=== PATIENT | male | born 1955 | race Caucasian/White ===

== ENCOUNTER 2018-01-15 04:53 | Inpatient (IN) | payer BC, OTHER ==
--- NOTE | 2018-01-15 05:03 | PDOC ---
History of Present Illness - General Chief Complaint: Nausea/Vomiting Stated Complaint: NAUSEA Time Seen by Provider: 01/15/18 04:58 - History of Present Illness Initial Comments: 62yo M with DM and HTN presenting with nausea and vomiting. Patient reports new room-spinning sensation around 11pm after which he started vomiting, and has had about five episodes since that time. Denies abdominal pain, but endorses chills. Patient reports eating chicken and vegetable soup for dinner. No chest pain or shortness of breath. No history of surgeries. History limited by patient s inability to understand questions due to difficulty hearing. Past History - Past Medical History Allergies/Adverse Reactions: Allergies Allergy/AdvReac Type Severity Reaction Status Date / Time No Known Allergies Allergy Verified 09/15/15 17:34 Home Medications: Ambulatory Orders Glyburide [Micronase -] 10 mg PO BID 09/06/15 Sitagliptin Phosphate [Januvia] 50 mg PO BID 09/06/15 Diabetes: Yes HTN: Yes Hypercholesterolemia: Yes - Immunization History Immunization Up to Date: Yes - Suicide/Smoking/Psychosocial Hx Smoking History: Never smoked Have you smoked in the past 12 months: No Hx Alcohol Use: No Drug/Substance Use Hx: No Substance Use Type: None Hx Substance Use Treatment: No Review of Systems - Review of Systems Comments:: Constitutional: no fever, no chills Cardiovascular: no chest pain Respiratory: no cough, no shortness of breath Gastrointestinal: no abdominal pain, +nausea, +vomiting *Physical Exam - Physical Exam Comments: General: Awake, alert, and fully oriented, actively retching Head: no signs of trauma Eyes: EOMI, sclera anicteric ENT: Dry mucus membranes Neck: Normal ROM, supple Lungs: Lungs clear, Normal breath sounds Cardio: Regular rhythm, S1 and S2 present Abdomen: Soft, nontender. No guarding, no rebound, no masses Extremities: Normal range of motion, Distal pulses present SKIN: Warm, Dry, normal turgor Neurologic: Cranial nerves II through XII grossly intact. Horizontal nystagmus present. Normal speech. ED Treatment Course - LABORATORY CBC & Chemistry Diagram: 01/15/18 05:34 01/15/18 05:34 Medical Decision Making - Medical Decision Making 62yo M with nausea and vomiting. Labs Zofran 4 Pepcid 20 1L NS Patient noted to be vertiginous with horizontal nystagmus. Last known normal around 11pm. CT Head ordered 01/15/18 06:21 CT Head did not show acute pathology. Discussed case with neurologist, Dr. Owens, who recommended admission and MRI to assess for stroke given patient's presentation and risk factors. Meclizine [address] Bey Patient signed out to Dr. Heard 01/15/18 07:43 Laboratory Tests 01/15/18 01/15/18 01/15/18 05:34 05:34 05:59 WBC 8.7 RBC 5.91 H Hgb 18.1 H Hct 53.3 H MCV 90.3 MCH 30.7 MCHC 34.0 RDW 12.8 D Plt Count 225 MPV 7.4 L Absolute Neuts (auto) 7.5 Neutrophils % 86.2 H D Lymphocytes % 8.3 D Monocytes % 5.1 Eosinophils % 0.1 D Basophils % 0.3 Nucleated RBC % 0 PT with INR INR Sodium 139 Potassium 4.4 Chloride 101 Carbon Dioxide 20 L Anion Gap 17 H BUN 14 Creatinine 1.3 Creat Clearance w eGFR 55.58 Random Glucose 245 H Calcium 10.0 Total Bilirubin 0.8 AST 20 ALT 31 Alkaline Phosphatase 124 H Creatine Kinase 148 Cancelled Troponin I < 0.02 Cancelled Total Protein 8.1 Albumin 3.9 Triglycerides 67 Cholesterol 163 Cancelled Total LDL Cholesterol 108 H HDL Cholesterol 51 Lipase 272 Acetone, Qual Blood Type Antibody Screen 01/15/18 01/15/18 01/15/18 05:59 05:59 05:59 WBC RBC Hgb Hct MCV MCH MCHC RDW Plt Count MPV Absolute Neuts (auto) Neutrophils % Lymphocytes % Monocytes % Eosinophils % Basophils % Nucleated RBC % PT with INR 11.00 INR 0.97 Sodium Potassium Chloride Carbon Dioxide Anion Gap BUN Creatinine Creat Clearance w eGFR Random Glucose Calcium Total Bilirubin AST ALT Alkaline Phosphatase Creatine Kinase Cancelled Troponin I Cancelled Total Protein Albumin Triglycerides Cancelled Cholesterol Total LDL Cholesterol Cancelled HDL Cholesterol Cancelled Lipase Acetone, Qual Negative Blood Type Antibody Screen 01/15/18 05:59 WBC RBC Hgb Hct MCV MCH MCHC RDW Plt Count MPV Absolute Neuts (auto) Neutrophils % Lymphocytes % Monocytes % Eosinophils % Basophils % Nucleated RBC % PT with INR INR Sodium Potassium Chloride Carbon Dioxide Anion Gap BUN Creatinine Creat Clearance w eGFR Random Glucose Calcium Total Bilirubin AST ALT Alkaline Phosphatase Creatine Kinase Troponin I Total Protein Albumin Triglycerides Cholesterol Total LDL Cholesterol HDL Cholesterol Lipase Acetone, Qual Blood Type B POSITIVE Antibody Screen Negative *DC/Admit/Observation/Transfer Diagnosis at time of Disposition: Vomiting, Vertigo - Discharge Dispostion Condition at time of disposition: Guarded - Referrals - Patient Instructions - Post Discharge Activity
[2018-01-15] MEDS ORDERED: SODIUM CHLORIDE 1,000 ML IV STA (05:30)
[2018-01-15] MEDS ORDERED: FAMOTIDINE 20 MG/50 ML IVPB 20 MG/50 ML MG IVPB ONE ×2 (05:37→06:09)
[2018-01-15] MEDS ORDERED: ONDANSETRON 4 MG/2 ML VIAL ONE (05:43)
[2018-01-15 05:46] LABS: BASO % 0.3 % (0-2.0); EOS % 0.1 % (0-4.5); HEMATOCRIT 53.3 % (35.4-49); HEMOGLOBIN 18.1 GM/dL (11.7-16.9); LYMPH % 8.3 % (8-40); MCH 30.7 pg (25.7-33.7); MEAN CELL VOLUME 90.3 fl (80-96); MEAN PLT VOLUME 7.4 fl (7.5-11.1); MONO % 5.1 % (3.8-10.2); NEUT % 86.2 % (42.8-82.8); PLATELET COUNT 225 K/MM3 (134-434); RBC 5.91 M/mm3 (4.00-5.60); RDW 12.8 % (11.9-15.9); WHITE BLOOD COUNT 8.7 K/mm3 (4.0-10.0)
--- NOTE | 2018-01-15 05:53 | PDOC ---
Attending Attestation - Resident Resident Name: Karla Barth - ED Attending Attestation I have performed the following: I have examined & evaluated the patient, The case was reviewed & discussed with the resident, I agree w/resident's findings & plan, Exceptions are as noted - HPI HPI: 01/15/18 05:48 62 M with h/o DM, HTN presenting to ED with severe dizziness, nausea, and vomiting. Pt states that at 11PM last night, he began to experience a "strange sensation". He states that his apartment started to spin around him. Pt subsequently vomited several times. He denies abdominal pain. Denies diarrhea. Denies HENDRIX. No F/C. Denies CP/SOB. He currently reports feeling very dizzy and nauseous. Denies weakness/numbness in any extremity. - Physicial Exam PE: 01/15/18 05:50 "GENERAL: Awake, alert, and fully oriented, in no acute distress. HEAD: No signs of trauma EYES: PERRLA, EOMI, sclera anicteric, conjunctiva clear ENT: Auricles normal inspection, hearing grossly normal, nares patent, oropharynx clear without exudates. Moist mucosa NECK: Nontender, no stepoffs, Normal ROM, supple, no lymphadenopathy, JVD, or masses LUNGS: Breath sounds equal, clear to auscultation bilaterally. No wheezes, and no crackles HEART: Regular rate and rhythm, normal S1 and S2, no murmurs, rubs or gallops ABDOMEN: Soft, nontender, normoactive bowel sounds. No guarding, no rebound. No masses EXTREMITIES: Normal range of motion, no edema. No clubbing or cyanosis. No cords, erythema, or tenderness NEUROLOGICAL: + horizontal nystagmus, Cranial nerves II through XII intact. 5/5 strength and sensation in all extremities, Normal speech SKIN: Warm, Dry, normal turgor, no rashes or lesions noted." - Medical Decision Making 01/15/18 05:51 62 M with vertigo, nausea, vomiting. Exam notable for horizontal nystagmus, otherwise no neuro deficits. Potentially peripheral vertigo, but will need to r/ o CVA given age and risk factors. Pt outside window for tPA, LKN was 11PM, >6 hours ago. - CT head - Labs - Neuro consult - IVF, zofran NIH Stroke Scale - Last Known Well Date/Time & Onset Date Last Known Well: 01/14/18 Time Last Known Well: 23:00 - Initial Evaluation Level of consciousness: Alert Ask patient the month and their age: Answers both correctly Ask patient to open & close eyes; make fist and let go: Obeys both correctly Best gaze (horizontal eye movement): Normal Visual field testing: No visual field loss Facial paresis (Show teeth/raise eyebrows/close eyes tight): Normal symmetrical movement Motor Function: Left Arm: Normal Motor Function: Right Arm: Normal (extends arm 90 (or 45) degrees for 10 seconds without drift Motor Function: Left Leg: Normal (extends leg 30 degrees for 5 seconds without drift) Motor Function: Right Leg: Normal (extends leg 30 degrees for 5 seconds without drift) Limb Ataxia: Present in two limbs Sensory(Use pinprick test arms,legs,trunk,face/side to side): Normal Best language (Describe picture, name items, read sentences): No Aphasia Dysarthria (read several words): Normal articulation Extinction and Inattention: No abnormality - Total Score NIH Stroke Scale Score: 2
[2018-01-15] MEDS: ONDANSETRON 4 MG/2 ML VIAL IVPUSH ONE ×2 (06:06→06:07)
[2018-01-15 06:19] LABS: INR 0.97 (0.83-1.09)
[2018-01-15] MEDS ORDERED: MECLIZINE HCL 25 MG TABLET (FP) PO ONE (07:18)
[2018-01-15] MEDS ORDERED: MECLIZINE HCL 25 MG TABLET (FP) ONE (07:22)
--- NOTE | 2018-01-15 08:01 | PDOC ---
*Physical Exam - Vital Signs Last Vital Signs Temp Pulse Resp BP Pulse Ox 98.0 F 96 H 14 150/70 96 01/15/18 07:27 01/15/18 07:27 01/15/18 07:27 01/15/18 07:27 01/15/18 07:27 01/15/18 07:56 Care endorsed to me by Dr. Barth at the end of her shift. This is a 62 YOM with h/ o DM, HTN, HLD p/w room-spinning sensation and generalized weakness followed by n/v. Denies any diarrhea or abdominal pain. Was found to be mildly tachycardic, wretching profusely, received Zofran, Pepcid, and IVF. Dr. Barth spoke with Dr. Owens who recommended Meclizine 25 mg, admission for MRI. PCP is Dr. Bey. ED Treatment Course - LABORATORY CBC & Chemistry Diagram: 01/15/18 05:34 01/15/18 05:34 - ADDITIONAL ORDERS Additional order review: Laboratory Results 01/15/18 01/15/18 01/15/18 05:59 05:59 05:59 PT with INR 11.00 INR 0.97 Creatine Kinase Cancelled Cancelled Troponin I Cancelled Cancelled Triglycerides Cancelled Cholesterol Cancelled Total LDL Cholesterol Cancelled HDL Cholesterol Cancelled 01/15/18 05:34 RBC 5.91 H MCV 90.3 MCHC 34.0 RDW 12.8 D MPV 7.4 L Neutrophils % 86.2 H D Lymphocytes % 8.3 D Monocytes % 5.1 Eosinophils % 0.1 D Basophils % 0.3 - Medications Given in the ED: ED Medications Discontinued Medications Generic Name Dose Route Start Last Admin Trade Name Freq PRN Reason Stop Dose Admin Sodium Chloride 1,000 mls @ 1,000 mls/hr 01/15/18 05:30 01/15/18 06:05 Normal Saline - IV 01/15/18 06:29 1,000 mls/hr ASDIR STA Administration Famotidine/Sodium Chloride 20 mg in 50 mls @ 100 mls/hr 01/15/18 05:37 06:27 Pepcid 20 Mg Premixed Ivpb - IVPB 01/15/18 06:06 100 mls/hr ONCE ONE Administration Meclizine HCl 25 mg 01/15/18 07:18 09/27/18 07:26 Antivert - PO 01/15/18 07:19 25 mg ONCE ONE Administration Ondansetron HCl 4 mg 01/15/18 05:30 01/15/18 06:07 Zofran Injection IVPUSH 01/15/18 05:31 4 mg ONCE ONE Administration Medical Decision Making - Medical Decision Making Vital Signs Temperature 98.0 F 01/15/18 07:27 Pulse Rate 96 H 01/15/18 07:27 Respiratory Rate 14 01/15/18 07:27 Blood Pressure 150/70 01/15/18 07:27 O2 Sat by Pulse Oximetry (%) 96 01/15/18 07:27 01/15/18 08:00 Dr. Barth has already called Dr. Bey's office and given information to senior account representative. Dr. Bey has been paged. 01/15/18 08:[address] Bey's office. He is agreeable with plan for admission. [facility]. Decision to Admit order placed. Call placed to Dr. Good's office. 01/15/18 08:[address] Good in person; in agreement with admission plan. Consult order is placed to Dr. Srivastava per Dr. Good group protocol. Dr. Owens is informed of the consult change. Laboratory Tests 01/15/18 01/15/18 01/15/18 05:34 05:34 05:59 WBC 8.7 RBC 5.91 H Hgb 18.1 H Hct 53.3 H MCV 90.3 MCH 30.7 MCHC 34.0 RDW 12.8 D Plt Count 225 MPV 7.4 L Absolute Neuts (auto) 7.5 Neutrophils % 86.2 H D Lymphocytes % 8.3 D Monocytes % 5.1 Eosinophils % 0.1 D Basophils % 0.3 Nucleated RBC % 0 PT with INR INR Sodium 139 Potassium 4.4 Chloride 101 Carbon Dioxide 20 L Anion Gap 17 H BUN 14 Creatinine 1.3 Creat Clearance w eGFR 55.58 Random Glucose 245 H Calcium 10.0 Total Bilirubin 0.8 AST 20 ALT 31 Alkaline Phosphatase 124 H Creatine Kinase 148 Cancelled Troponin I < 0.02 Cancelled Total Protein 8.1 Albumin 3.9 Triglycerides 67 Cholesterol 163 Cancelled Total LDL Cholesterol 108 H HDL Cholesterol 51 Lipase 272 Blood Type Antibody Screen 01/15/18 01/15/18 01/15/18 05:59 05:59 05:59 WBC RBC Hgb Hct MCV MCH MCHC RDW Plt Count MPV Absolute Neuts (auto) Neutrophils % Lymphocytes % Monocytes % Eosinophils % Basophils % Nucleated RBC % PT with INR 11.00 INR 0.97 Sodium Potassium Chloride Carbon Dioxide Anion Gap BUN Creatinine Creat Clearance w eGFR Random Glucose Calcium Total Bilirubin AST ALT Alkaline Phosphatase Creatine Kinase Cancelled Troponin I Cancelled Total Protein Albumin Triglycerides Cancelled Cholesterol Total LDL Cholesterol Cancelled HDL Cholesterol Cancelled Lipase Blood Type B POSITIVE Antibody Screen Negative *DC/Admit/Observation/Transfer Diagnosis at time of Disposition: Vertigo Vomiting Qualifiers: Vomiting type: unspecified Vomiting Intractability: non-intractable Nausea presence: with nausea Qualified Code(s): R11.2 - Nausea with vomiting, unspecified - Discharge Dispostion Condition at time of disposition: Guarded Decision to Admit order: Yes - Referrals - Patient Instructions - Post Discharge Activity
[2018-01-15] MEDS ORDERED: ACETAMINOPHEN 1000 MG/100 ML VIAL (NON FORMULARY) IVPB ONE ×2 (08:27)
[2018-01-15] MEDS ORDERED: ONDANSETRON 4 MG/2 ML VIAL IVPUSH PRN (08:27)
[2018-01-15] MEDS ORDERED: PANTOPRAZOLE SODIUM 40 MG VIAL IVPUSH ONE (08:27)
[2018-01-15] MEDS ORDERED: PANTOPRAZOLE SODIUM 40 MG/100 ML BAG IVPB ONE (08:30)
--- NOTE | 2018-01-15 08:35 | HP ---
Admitting History and Physical - Primary Care Physician PCP: Josh Hammond - Admission Chief Complaint: DIZZINESS/INTRACTABLE VOMITING History Source: Patient Limitations to Obtaining History: Clinical Condition - Past Medical History Cardiovascular: Yes: Hyperlipdemia, Pulmonary Hypertension Psych: Yes: Anxiety - Smoking History Smoking history: Never smoked Have you smoked in the past 12 months: No - Alcohol/Substance Use Hx Alcohol Use: No Home Medications - Allergies Allergies/Adverse Reactions: Allergies Allergy/AdvReac Type Severity Reaction Status Date / Time No Known Allergies Allergy Verified 09/15/15 17:34 - Home Medications Home Medications: Ambulatory Orders Glyburide [Micronase -] 10 mg PO BID 09/06/15 Sitagliptin Phosphate [Januvia] 50 mg PO BID 09/06/15 Review of Systems - Review of Systems Constitutional: reports: Loss of Appetite, Weakness Eyes: reports: No Symptoms HENT: reports: No Symptoms Neck: reports: No Symptoms Cardiovascular: reports: No Symptoms Respiratory: reports: No Symptoms Gastrointestinal: reports: Abdominal Pain, Indigestion, Nausea Genitourinary: reports: No Symptoms Musculoskeletal: reports: No Symptoms, Muscle Pain Neurological: reports: Dizziness, Headache Endocrine: reports: No Symptoms Hematology/Lymphatic: reports: No Symptoms Psychiatric: reports: No Symptoms Physical Examination Vital Signs: Vital Signs Temperature 98.0 F 01/15/18 07:27 Pulse Rate 96 H 01/15/18 07:27 Respiratory Rate 14 01/15/18 07:27 Blood Pressure 150/70 01/15/18 07:27 O2 Sat by Pulse Oximetry (%) 96 01/15/18 07:27 Constitutional: Yes: Moderate Distress Eyes: Yes: WNL HENT: Yes: WNL Neck: Yes: WNL Cardiovascular: Yes: WNL Respiratory: Yes: WNL Gastrointestinal: Yes: Tenderness, Rebound Renal/: Yes: WNL Musculoskeletal: Yes: Muscle Weakness Extremities: Yes: Other Edema: No Peripheral Pulses WNL: Yes Integumentary: Yes: WNL Wound/Incision: Yes: Clean/Dry Neurological: Yes: Alert, Other ...Motor Strength: LLE, RLE Psychiatric: Yes: WNL Labs: CBC, BMP 01/15/18 05:34 Imaging - Results Chest X-ray: Pending X-ray: Pending Cat Scan: Report Reviewed Problem List - Problems (1) Dizziness Code(s): R42 - DIZZINESS AND GIDDINESS (2) Vertigo Code(s): R42 - DIZZINESS AND GIDDINESS (3) Vomiting Code(s): R11.10 - VOMITING, UNSPECIFIED Qualifiers: Vomiting type: unspecified Vomiting Intractability: non-intractable Nausea presence: with nausea Qualified Code(s): R11.2 - Nausea with vomiting, unspecified (4) DM2 (diabetes mellitus, type 2) Code(s): E11.9 - TYPE 2 DIABETES MELLITUS WITHOUT COMPLICATIONS (5) HTN (hypertension) Code(s): I10 - ESSENTIAL (PRIMARY) HYPERTENSION Assessment/Plan IVF ZOFRAN IV CHECK XRAY ABDOMEN/CXR R/O SBO ANTIVERT NEURO EVAL PPI/TYLENOL IV FALL RISKS NEURO CHECKS
[2018-01-15 08:39] LABS: ALBUMIN 3.9 g/dl (3.4-5.0); ALK PHOS 124 U/L (45-117); ANION GAP 17 MMOL/L (8-16); BILIRUBIN,TOTAL 0.8 mg/dL (0.2-1); BLOOD UREA NITROGEN 14 mg/dL (7-18); CHLORIDE 101 mmol/L (98-107); CHOLESTEROL 163 mg/dL (50-200); CO2 20 mmol/L (21-32); CREATININE 1.3 mg/dL (0.55-1.3); GLUCOSE,RANDOM 245 mg/dL (74-106); HDL CHOLESTEROL 51 mg/dL (40-60); LIPASE 272 U/L (73-393); POTASSIUM 4.4 mmol/L (3.5-5.1); SGOT/AST 20 U/L (15-37); SGPT/ALT 31 U/L (13-61); SODIUM 139 mmol/L (136-145); TOT PROT 8.1 g/dl (6.4-8.2); TRIGLYCERIDES 67 mg/dL (0-150)
[2018-01-15] MEDS: DEXTROSE 5%-NORMAL SALINE 1,000 ML IV SCH (09:05)
--- NOTE | 2018-01-15 09:34 | EKG ---
Test Reason : Blood Pressure : / mmHG Vent. Rate : 105 BPM Atrial Rate : 105 BPM P-R Int : 172 ms QRS Dur : 104 ms QT Int : 360 ms P-R-T Axes : 064 -50 097 degrees QTc Int : 475 ms SINUS TACHYCARDIA LEFT ANTERIOR FASCICULAR BLOCK MODERATE VOLTAGE CRITERIA FOR LVH, MAY BE NORMAL VARIANT T WAVE ABNORMALITY, CONSIDER LATERAL ISCHEMIA ABNORMAL ECG WHEN COMPARED WITH ECG OF 15-SEP-2015 19:19, INCOMPLETE RIGHT BUNDLE BRANCH BLOCK IS NO LONGER PRESENT Confirmed by MARGARITA TOPETE MD ([id number]) on 01/15/2018 9:33:54 AM Referred By: Confirmed By:MARGARITA TOPETE MD
[2018-01-15 10:11] LABS: URINE APPEARANCE CLEAR; URINE BILIRUBIN NEGATIVE (<2.0 mg/dL); URINE COLOR STRAW; URINE GLUCOSE (UA) 3+ (NEGATIVE); URINE KETONE 1+ (NEGATIVE); URINE LEUK ESTERASE NEGATIVE (NEGATIVE); URINE NITRITE NEGATIVE (NEGATIVE); URINE PROTEIN NEGATIVE (NEGATIVE); URINE UROBILINOGEN NEGATIVE mg/dL (0.2-1.0)
[2018-01-15 10:14] LABS: EPI CELLS RARE /HPF (FEW); URINE MUCUS RARE
--- NOTE | 2018-01-15 15:37 | PN ---
Progress Note (short form) - Note Progress Note: Informed Dr. Good that I will be away starting tomorrow and therefore cannot accept new consults. He asked for Dr. Wilkins to consult on Darnell. Order placed.
[2018-01-15 17:13] VITALS: BMI 26.4
[2018-01-16] MEDS: DEXTROSE 5%-NORMAL SALINE 1,000 ML IV SCH (10:14)
--- NOTE | 2018-01-16 10:43 | PN ---
Progress Note, Physician - Current Medication List Current Medications: Active Medications Dextrose/Sodium Chloride (D5-Ns -) 1,000 mls @ 83 mls/hr IV ASDIR SAMEER Last Admin: 01/16/18 10:14 Dose: 83 mls/hr Ondansetron HCl (Zofran Injection) 4 mg IVPUSH Q4H PRN PRN Reason: NAUSEA AND/OR VOMITING - Objective Vital Signs: Vital Signs Temperature 98.3 F 01/16/18 10:06 Pulse Rate 83 01/16/18 10:06 Respiratory Rate 16 01/16/18 10:06 Blood Pressure 166/101 H 01/16/18 10:06 O2 Sat by Pulse Oximetry (%) 96 01/16/18 09:00 Cardiovascular: Yes: S1, S2 Respiratory: Yes: Regular, CTA Bilaterally Gastrointestinal: Yes: Normal Bowel Sounds, Soft Neurological: Yes: Alert, Oriented. No: Cran Nerves II-XII Intact Labs: CBC, BMP 01/15/18 05:34 01/15/18 05:34 INR, PTT INR 0.97 (0.83-1.09) 01/15/18 05:59 Problem List - Problems (1) Vertigo Assessment/Plan: -CT head negative -Neuro consult -Tele -Cardio -Follow Up Labs Code(s): R42 - DIZZINESS AND GIDDINESS (2) Vomiting Assessment/Plan: -PPI -GI consult -Advance diet Code(s): R11.10 - VOMITING, UNSPECIFIED Qualifiers: Vomiting type: unspecified Vomiting Intractability: non-intractable Nausea presence: with nausea Qualified Code(s): R11.2 - Nausea with vomiting, unspecified (3) DM2 (diabetes mellitus, type 2) Assessment/Plan: -BGM and SS Code(s): E11.9 - TYPE 2 DIABETES MELLITUS WITHOUT COMPLICATIONS (4) HTN (hypertension) Code(s): I10 - ESSENTIAL (PRIMARY) HYPERTENSION
[2018-01-16] MEDS: amLODIPine BESYLATE 5 MG TABLET (FP) PO SCH (11:09)
--- NOTE | 2018-01-16 14:01 | CON.CARD ---
Consult Consult Specialty:: Cardiology Referred by:: tameka Good Reason for Consultation:: htn - History of Present Illness Chief Complaint: Dizziness History of Present Illness: 62 year old male with a pmhx of dm and htn who presented to ER with dizziness, nausea, and vomiting. Started in the evening and than felt a "strange sensation ". Room was spinning and than developed N/V. No chest pain or sob. No palpitations. No pnd, orthopnea, or edema. Feeling some dizziness and "feeling off" but says it is improving. As per nurse, patient is refusing his blood pressure pills and also MRI brain. EKG: sinus rhythm, lafb, lateral T wave abnormalities - History Source History Provided By: Patient, Medical Record - Past Medical History Cardio/Vascular: Yes: Hyperlipdemia, Pulmonary Hypertension Psych: Yes: Anxiety - Alcohol/Substance Use Hx Alcohol Use: No - Smoking History Smoking history: Never smoked Have you smoked in the past 12 months: No Home Medications - Allergies Allergies/Adverse Reactions: Allergies Allergy/AdvReac Type Severity Reaction Status Date / Time No Known Allergies Allergy Verified 09/15/15 17:34 - Home Medications Home Medications: Ambulatory Orders Glyburide [Micronase -] 10 mg PO BID 09/06/15 Sitagliptin Phosphate [Januvia] 50 mg PO BID 09/06/15 Vital Signs: Vital Signs Temperature 98.3 F 01/16/18 10:06 Pulse Rate 83 01/16/18 10:06 Respiratory Rate 16 01/16/18 10:06 Blood Pressure 166/101 H 01/16/18 10:06 O2 Sat by Pulse Oximetry (%) 96 01/16/18 09:00 Constitutional: Yes: No Distress Neck: Yes: Supple Respiratory: Yes: CTA Bilaterally Gastrointestinal: Yes: Soft Cardiovascular: Yes: Regular Rate and Rhythm JVD: No Carotid Bruit: No PMI: Non-Displaced Heart Sounds: Yes: S1, S2 Murmur: Yes: Systolic Murmur (+2/6 HSM RUSB) Edema: No - Other Data Labs, Other Data: CBC, BMP 01/15/18 05:34 01/15/18 05:34 INR, PTT INR 0.97 (0.83-1.09) 01/15/18 05:59 Imaging - Results Chest X-ray: Report Reviewed EKG: Image Reviewed Problem List - Problems (1) Dizziness Code(s): R42 - DIZZINESS AND GIDDINESS (2) HTN (hypertension) Code(s): I10 - ESSENTIAL (PRIMARY) HYPERTENSION Assessment/Plan 62 year old male with a pmhx of dm and htn who presented to ER with dizziness, nausea, and vomiting. Started in the evening and than felt a "strange sensation ". Room was spinning and than developed N/V. No chest pain or sob. No palpitations. No pnd, orthopnea, or edema. Feeling some dizziness and "feeling off" but says it is improving. As per nurse, patient is refusing his blood pressure pills and also MRI brain. EKG: sinus rhythm, lafb, lateral T wave abnormalities CT head: no acute m/s/b CXR: no acute lung disease 1) HTN -ordered amlodipine but patient is refusing. Recommended to patient to take medication. Can also consider moreno or arb given h /o DM unless contraindicated. 2) Dizziness -CT head negative Telemetry uneventful to date. -Refusing MRI as per nurse. -Would also consider an echocardiogram given lvh/dizzy/and light systolic murmur if patient agrees.
[2018-01-16] MEDS ORDERED: PANTOPRAZOLE SODIUM 40 MG VIAL IVPUSH SCH (15:00)
--- NOTE | 2018-01-16 15:50 | CON.GI ---
Consult Consult Specialty:: Gastroenterology Referred by:: Dr Good Reason for Consultation:: Vomiting - History of Present Illness Chief Complaint: Dizziness and vomiting - History Source History Provided By: Patient Limitations to Obtaining History: Poor Historian - Past Medical History [employer]: Yes: Other (decreased auditory acuity) Cardio/Vascular: Yes: HTN, Hyperlipdemia Renal/: Yes: Renal Inusuff (obstructive uropathy and poorly controlled DM), BPH Psych: Yes: Anxiety Endocrine: Yes: Diabetes Mellitus - Past Surgical History Past Surgical History: Yes: TURP - Alcohol/Substance Use Hx Alcohol Use: No History of Substance Use: reports: None - Smoking History Smoking history: Never smoked Have you smoked in the past 12 months: No - Social History Usual Living Arrangement: Alone ADL: Family Assistance Occupation: teacher's aid, [employer] Place of : Other ([place]) Came to [place] (year): age 16 History of Recent Travel: No Home Medications - Allergies Allergies/Adverse Reactions: Allergies Allergy/AdvReac Type Severity Reaction Status Date / Time No Known Allergies Allergy Verified 09/15/15 17:34 - Home Medications Home Medications: Ambulatory Orders Glyburide [Micronase -] 10 mg PO BID 09/06/15 Sitagliptin Phosphate [Januvia] 50 mg PO BID 09/06/15 Family Disease History - Family Disease History Family Disease History: Other: Father ( of alcoholism), Mother ( age 37 ? cause) Review of Systems - Review of Systems Constitutional: reports: Loss of Appetite HENT: reports: Hearing Loss Cardiovascular: reports: No Symptoms Respiratory: reports: No Symptoms Gastrointestinal: reports: Vomiting Genitourinary: reports: Frequency Psychiatric: reports: Anxiety Physical Exam-GI Vital Signs: Vital Signs Temperature 98.3 F 01/16/18 10:06 Pulse Rate 83 01/16/18 10:06 Respiratory Rate 16 01/16/18 10:06 Blood Pressure 166/101 H 01/16/18 10:06 O2 Sat by Pulse Oximetry (%) 96 01/16/18 09:00 CBC,CMP WBC 8.7 K/mm3 (4.0-10.0) 01/15/18 05:34 RBC 5.91 M/mm3 (4.00-5.60) H 01/15/18 05:34 Hgb 18.1 GM/dL (11.7-16.9) H 01/15/18 05:34 Hct 53.3 % (35.4-49) H 01/15/18 05:34 MCV 90.3 fl (80-96) 01/15/18 05:34 MCH 30.7 pg (25.7-33.7) 01/15/18 05:34 MCHC 34.0 g/dl (32.0-35.9) 01/15/18 05:34 RDW 12.8 % (11.9-15.9) D 01/15/18 05:34 Plt Count 225 K/MM3 (134-434) 01/15/18 05:34 MPV 7.4 fl (7.5-11.1) L 01/15/18 05:34 Absolute Neuts (auto) 7.5 K/mm3 (1.5-8.0) 01/15/18 05:34 Neutrophils % 86.2 % (42.8-82.8) H D 01/15/18 05:34 Lymphocytes % 8.3 % (8-40) D 01/15/18 05:34 Monocytes % 5.1 % (3.8-10.2) 01/15/18 05:34 Eosinophils % 0.1 % (0-4.5) D 01/15/18 05:34 Basophils % 0.3 % (0-2.0) 01/15/18 05:34 Nucleated RBC % 0 % (0-0) 01/15/18 05:34 Sodium 139 mmol/L (136-145) 01/15/18 05:34 Potassium 4.4 mmol/L (3.5-5.1) 01/15/18 05:34 Chloride 101 mmol/L (98-107) 01/15/18 05:34 Carbon Dioxide 20 mmol/L (21-32) L 01/15/18 05:34 Anion Gap 17 MMOL/L (8-16) H 01/15/18 05:34 BUN 14 mg/dL (7-18) 01/15/18 05:34 Creatinine 1.3 mg/dL (0.55-1.3) 01/15/18 05:34 Creat Clearance w eGFR 55.58 (>60) 01/15/18 05:34 POC Glucometer 223 UNITS (80-120) 01/16/18 10:37 Random Glucose 245 mg/dL (74-106) H 01/15/18 05:34 Calcium 10.0 mg/dL (8.5-10.1) 01/15/18 05:34 Total Bilirubin 0.8 mg/dL (0.2-1) 01/15/18 05:34 AST 20 U/L (15-37) 01/15/18 05:34 ALT 31 U/L (13-61) 01/15/18 05:34 Alkaline Phosphatase 124 U/L (45-117) H 01/15/18 05:34 Creatine Kinase Cancelled 01/15/18 05:59 Troponin I Cancelled 01/15/18 05:59 Total Protein 8.1 g/dl (6.4-8.2) 01/15/18 05:34 Albumin 3.9 g/dl (3.4-5.0) 01/15/18 05:34 Triglycerides Cancelled 01/15/18 05:59 Cholesterol Cancelled 01/15/18 05:59 Total LDL Cholesterol Cancelled 01/15/18 05:59 HDL Cholesterol Cancelled 01/15/18 05:59 Lipase 272 U/L (73-393) 01/15/18 05:34 Current Medications Generic Name Dose Route Start Last Admin Trade Name Freq PRN Reason Stop Dose Admin Amlodipine Besylate 5 mg 01/16/18 10:45 01/16/18 11:09 Norvasc - PO Not Given DAILY SAMEER Dextrose/Sodium Chloride 1,000 mls @ 83 mls/hr 01/15/18 08:45 01/16/18 10:14 D5-Ns - IV 83 mls/hr ASDIR [facility] Administration Insulin Aspart 1 vial 01/16/18 16:30 Novolog Vial Sliding Scale - SQ ACHS [facility] Protocol Ondansetron HCl 4 mg 01/15/18 08:27 Zofran Injection IVPUSH Q4H PRN NAUSEA AND/OR VOMITING Pantoprazole Sodium 40 mg 01/16/18 15:00 Protonix Iv IVPUSH DAILY SAMEER Constitutional: Yes: Anxious Eyes: Yes: Conjunctiva Clear HENT: Yes: Other (hard of hearing) Neck: Yes: Supple Cardiovascular: Yes: Regular Rate and Rhythm Respiratory: Yes: CTA Bilaterally Gastrointestinal Inspection: Yes: WNL ...Auscultate: Yes: Normoactive Bowel Sounds ...Palpate: Yes: Soft, Other (nontender) ...Rectal Exam: Yes: Deferred (declined) Edema: No Neurological: Yes: Alert, Unsteady Gait Labs: CBC, BMP 01/15/18 05:34 01/15/18 05:34 INR, PTT INR 0.97 (0.83-1.09) 01/15/18 05:59 Laboratory Tests 01/15/18 05:34 Alkaline Phosphatase 124 H Problem List - Problems (1) Vomiting Assessment/Plan: Jose apparently has poor compliance with taking medications as per Dr Bey' s previous consultation. She admits to seeing BGMs over 300 and having urinary frequency over the past few weeks. He denies abdominal pain acid reflux, rectal bleeding, dysphagia or hematemesis but had noted early satiety for several weeks. The picture is most consistent with diabetic gastroparesis. I will order a Hb A1C. I have advised an EGD to exclude erosive gastritis and an ulcer. I have also advised colonoscopy for colon cancer screening. Jose has declined both. I am not convinced that he fully understands that which I have discussed with him. Since vomiting has resolved I will not start Reglan. Dr Lees will be covering this weekend . Please recall us if needed Code(s): R11.10 - VOMITING, UNSPECIFIED Qualifiers: Vomiting type: unspecified Vomiting Intractability: non-intractable Nausea presence: with nausea Qualified Code(s): R11.2 - Nausea with vomiting, unspecified (2) Diabetic gastroparesis associated with type 2 diabetes mellitus Code(s): E11.43 - TYPE 2 DIABETES W DIABETIC AUTONOMIC (POLY)NEUROPATHY; K31.84 - GASTROPARESIS (3) Auditory disturbance Code(s): H91.90 - UNSPECIFIED HEARING LOSS, UNSPECIFIED EAR
[2018-01-16] MEDS: INSULIN SLIDING SCALE (NOVOLOG) 1 VIAL SQ SCH ×2 (16:24→21:02)
--- NOTE | 2018-01-16 16:31 | ECHO ---
Version: 1 Name: JULIAN WHEELER Exam: Adult Echocardiogram Study Date: 01/16/2018, 3:10 PM Age: 62 Years MMode/2D Measurements & Calculations IVSd: 0.99 cm LVIDs: 2.7 cm LVIDd: 4.3 cm LVPWd: 0.84 cm Ao root diam: 2.7 cm LA dimension: 3.3 cm Doppler Measurements & Calculations MV E max minh: 92.3 cm/sec Med E/e': 14.8 MV A max minh: 84.4 cm/sec Med Peak E' Minh: 6.2 cm/sec MV E/A: 1.09 Lat E/e': 6.2 Lat Peak E' Minh: 14.9 cm/sec MR max P.2 mmHg Ao max P.0 mmHg Ao V2 max: 180.5 cm/sec TR max minh: 261.7 cm/sec TR max P.4 mmHg Procedure A two-dimensional transthoracic echocardiogram with color flow and Doppler was performed. Left Ventricle The left ventricular size, thickness and function are normal. The left ventricular ejection fraction is normal. E/A reversal consistent with but not diagnostic of poor LV compliance. The left ventricular wall motion is normal. Right Ventricle The right ventricle is normal in size and function. Atria Normal left and right atrial size and function. Mitral Valve There is mild mitral valve thickening. There is no mitral valve stenosis. There is mild mitral regur gitation. Tricuspid Valve There is mild tricuspid valve thickening. There is no tricuspid stenosis. There is mild to moderate tricuspid regurgitation. Right ventricular systolic pressure is elevated at 30-40mmHg. Aortic Valve The aortic valve is not well visualized. No hemodynamically significant valvular aortic stenosis. No aortic regurgitation is present. Pulmonic Valve The pulmonic valve is not well visualized. There is no pulmonic valvular stenosis. Trace to mild pul nathan valvular regurgitation. Great Vessels The aortic root is normal size. Pericardium/Pleura There is no pericardial effusion. Summary Statements The left ventricular size, thickness and function are normal The left ventricular ejection fraction is normal. The left ventricular wall motion is normal. There is mild to moderate tricuspid regurgitation. Right ventricular systolic pressure is elevated at 30-40mmHg. E/A reversal consistent with but not diagnostic of poor LV compliance There is mild mitral regurgitation. MD Levi Goodson 01/16/2018, 4:30 PM Ordering Physician: Dave Cortez Referring Physician: KETURAH WALDROP Performed By: Tina Fox
[2018-01-16 16:39] LABS: BASO % 0.2 % (0-2.0); EOS % 0.4 % (0-4.5); HEMATOCRIT 50.8 % (35.4-49); HEMOGLOBIN 17.1 GM/dL (11.7-16.9); LYMPH % 19.7 % (8-40); MCH 30.4 pg (25.7-33.7); MCHC 33.7 g/dl (32.0-35.9); MEAN CELL VOLUME 90.1 fl (80-96); MEAN PLT VOLUME 7.4 fl (7.5-11.1); MONO % 9.6 % (3.8-10.2); NEUT % 70.1 % (42.8-82.8); PLATELET COUNT 203 K/MM3 (134-434); RBC 5.63 M/mm3 (4.00-5.60); RDW 12.7 % (11.9-15.9); WHITE BLOOD COUNT 6.6 K/mm3 (4.0-10.0)
[2018-01-16 17:07] LABS: ALBUMIN 3.6 g/dl (3.4-5.0); ALK PHOS 108 U/L (45-117); ANION GAP 11 MMOL/L (8-16); BILIRUBIN,TOTAL 0.6 mg/dL (0.2-1); BLOOD UREA NITROGEN 10 mg/dL (7-18); CALCIUM 8.9 mg/dL (8.5-10.1); CHLORIDE 102 mmol/L (98-107); CO2 26 mmol/L (21-32); CREATININE 1.2 mg/dL (0.55-1.3); GLUCOSE,RANDOM 256 mg/dL (74-106); POTASSIUM 3.9 mmol/L (3.5-5.1); SGOT/AST 29 U/L (15-37); SGPT/ALT 27 U/L (13-61); SODIUM 139 mmol/L (136-145)
[2018-01-16] MEDS ORDERED: INSULIN (NOVOLOG) ASPART 100 UNITS/ML 10ML VIAL ONE ×2 (18:02→20:49)
--- NOTE | 2018-01-16 19:23 | CONSULT ---
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 Admitted after the sudden-onset of spinning vertigo, nausea, vomiting. Pt now markedly improved. Denies prior episodes CT of head (reviewed): Normal EMMA: No bruits. Cor reg NEURO: Mild static encephalopathy? Speech fluent. CN: Hard of hearing? No nystagmus No drift or tremor. Normal strength. Some cogwheel rigidity and decreased KAT's. Normal strength. Absent AJJ's. No FTN Dystaxia Slight decreased vib in feet. Romberg neg Slightly wide-based. IMP: Mild B/L Cerebral dysfunction (static encephalopathy) Acute labyrinthitis. Mild extrapyramidal features. Mild diabetic peripheral neuropathy. SUGGEST: Cont. Meclizine PRN Out patient ENT consult and audiology PT to mobilize patient OO Bed to chair and for gait assessment. Check TSH, T4, RPR, B12. Thank you very much, Jose Srivastava MD
[2018-01-17] MEDS: INSULIN SLIDING SCALE (NOVOLOG) 1 VIAL SQ SCH ×4 (06:11→22:28)
[2018-01-17 07:06] LABS: BASO % 0.4 % (0-2.0); EOS % 1.4 % (0-4.5); HEMATOCRIT 49.6 % (35.4-49); HEMOGLOBIN 16.5 GM/dL (11.7-16.9); LYMPH % 26.6 % (8-40); MCH 29.9 pg (25.7-33.7); MCHC 33.3 g/dl (32.0-35.9); MEAN CELL VOLUME 89.9 fl (80-96); MEAN PLT VOLUME 7.4 fl (7.5-11.1); MONO % 12.2 % (3.8-10.2); NEUT % 59.4 % (42.8-82.8); PLATELET COUNT 185 K/MM3 (134-434); RBC 5.51 M/mm3 (4.00-5.60); RDW 12.9 % (11.9-15.9); WHITE BLOOD COUNT 5.7 K/mm3 (4.0-10.0)
[2018-01-17 07:58] LABS: ALBUMIN 3.6 g/dl (3.4-5.0); ALK PHOS 103 U/L (45-117); ANION GAP 11 MMOL/L (8-16); BILIRUBIN,TOTAL 0.8 mg/dL (0.2-1); BLOOD UREA NITROGEN 8 mg/dL (7-18); CALCIUM 8.6 mg/dL (8.5-10.1); CHLORIDE 101 mmol/L (98-107); CO2 27 mmol/L (21-32); CREATININE 1.1 mg/dL (0.55-1.3); GLUCOSE,RANDOM 213 mg/dL (74-106); POTASSIUM 3.7 mmol/L (3.5-5.1); SGOT/AST 30 U/L (15-37); SGPT/ALT 28 U/L (13-61); SODIUM 139 mmol/L (136-145); TOT PROT 6.8 g/dl (6.4-8.2)
--- NOTE | 2018-01-17 10:14 | PN ---
Progress Note, Physician - Current Medication List Current Medications: Active Medications Amlodipine Besylate (Norvasc -) 5 mg PO DAILY [facility] Last Admin: 01/16/18 11:09 Dose: Not Given Insulin Aspart (Novolog Vial Sliding Scale -) 1 vial SQ ACHS [facility]; Protocol Last Admin: 01/17/18 06:11 Dose: Not Given Ondansetron HCl (Zofran Injection) 4 mg IVPUSH Q4H PRN PRN Reason: NAUSEA AND/OR VOMITING Ramipril (Altace -) 5 mg PO DAILY [facility] Sitagliptin Phosphate (Januvia -) 50 mg PO BID [facility] - Objective Vital Signs: Vital Signs Temperature 98 F 01/17/18 05:00 Pulse Rate 70 01/17/18 05:00 Respiratory Rate 18 01/17/18 05:00 Blood Pressure 151/92 01/17/18 05:00 O2 Sat by Pulse Oximetry (%) 95 01/16/18 21:00 Cardiovascular: Yes: Regular Rate and Rhythm Respiratory: Yes: Regular, CTA Bilaterally Gastrointestinal: Yes: Normal Bowel Sounds, Soft Labs: CBC, BMP 01/17/18 05:30 01/17/18 05:30 INR, PTT INR 0.97 (0.83-1.09) 01/15/18 05:59 Problem List - Problems (1) Vertigo Assessment/Plan: -CT head negative -Neuro consult noted -Tele -Cardio noted -Follow Up Labs Code(s): R42 - DIZZINESS AND GIDDINESS (2) Vomiting Assessment/Plan: -PPI--to po -GI consult noted -Advance diet Code(s): R11.10 - VOMITING, UNSPECIFIED Qualifiers: Vomiting type: unspecified Vomiting Intractability: non-intractable Nausea presence: with nausea Qualified Code(s): R11.2 - Nausea with vomiting, unspecified (3) DM2 (diabetes mellitus, type 2) Assessment/Plan: -BGM and SS -compliance with meds discussed Code(s): E11.9 - TYPE 2 DIABETES MELLITUS WITHOUT COMPLICATIONS (4) HTN (hypertension) Code(s): I10 - ESSENTIAL (PRIMARY) HYPERTENSION
[2018-01-17] MEDS: RAMIPRIL 5 MG CAPSULE (FP) PO SCH ×2 (11:00→17:14)
[2018-01-17] MEDS: amLODIPine BESYLATE 5 MG TABLET (FP) PO SCH ×2 (11:00→17:15)
[2018-01-17] MEDS: PANTOPRAZOLE 40 MG TABLET (FP) PO SCH ×2 (11:00→17:14)
--- NOTE | 2018-01-17 11:16 | PN ---
Progress Note, Physician Chief Complaint: Dizziness History of Present Illness: 62 year old male with a pmhx of dm and htn who presented to ER with dizziness, nausea, and vomiting. Started in the evening and than felt a "strange sensation ". Room was spinning and than developed N/V. No chest pain or sob. No palpitations. No pnd, orthopnea, or edema. Feeling some dizziness and "feeling off" but says it is improving. As per nurse, patient is refusing his blood pressure pills and also MRI brain. - Current Medication List Current Medications: Active Medications Amlodipine Besylate (Norvasc -) 5 mg PO DAILY [facility] Last Admin: 01/16/18 11:09 Dose: Not Given Insulin Aspart (Novolog Vial Sliding Scale -) 1 vial SQ ACHS [facility]; Protocol Last Admin: 01/17/18 06:11 Dose: Not Given Ondansetron HCl (Zofran Injection) 4 mg IVPUSH Q4H PRN PRN Reason: NAUSEA AND/OR VOMITING Pantoprazole Sodium (Protonix -) 40 mg PO DAILY SAMEER Ramipril (Altace -) 5 mg PO DAILY [facility] Sitagliptin Phosphate (Januvia -) 50 mg PO BID [facility] - Objective Vital Signs: Vital Signs Temperature 98 F 01/17/18 05:00 Pulse Rate 70 01/17/18 05:00 Respiratory Rate 18 01/17/18 05:00 Blood Pressure 151/92 01/17/18 05:00 O2 Sat by Pulse Oximetry (%) 95 01/16/18 21:00 Constitutional: Yes: Well Nourished, No Distress, Calm Eyes: Yes: WNL, Conjunctiva Clear, EOM Intact HENT: Yes: WNL, Atraumatic, Normocephalic Neck: Yes: WNL, Supple, Trachea Midline Cardiovascular: Yes: WNL, Regular Rate and Rhythm, S1, S2 Respiratory: Yes: WNL, Regular, CTA Bilaterally Gastrointestinal: Yes: WNL, Normal Bowel Sounds, Soft ...Rectal Exam: Yes: Deferred Genitourinary: Yes: WNL Musculoskeletal: Yes: WNL Extremities: Yes: WNL Edema: No Peripheral Pulses WNL: Yes Integumentary: Yes: WNL Neurological: Yes: WNL, Alert, Oriented ...Motor Strength: WNL Psychiatric: Yes: WNL Labs: CBC, BMP 01/17/18 05:30 09/29/18 05:30 INR, PTT INR 0.97 (0.83-1.09) 01/15/18 05:59 Assessment/Plan 62 year old male with a pmhx of dm and htn who presented to ER with dizziness, nausea, and vomiting. Started in the evening and than felt a "strange sensation ". Room was spinning and than developed N/V. No chest pain or sob. No palpitations. No pnd, orthopnea, or edema. Feeling some dizziness and "feeling off" but says it is improving. As per nurse, patient is refusing his blood pressure pills and also MRI brain. There is no evidence of ischemia nor acute coronary syndrome. No angina. No events on telemetry. The echocardiogram showed the left ventricular function is normal. Elevated right ventricular pressures. The blood pressure remains moderately elevated. Consider increasing the Norvasc from 5-10 mg daily. There is no need for further cardiac workup at this point. Please do not hesitate to call us PRN. Please arrange for an outpatient office visit with .
[2018-01-17] MEDS: sitaGLIPtin PHOSPHATE 50 MG TABLET PO SCH (22:30)
[2018-01-18] MEDS: INSULIN SLIDING SCALE (NOVOLOG) 1 VIAL SQ SCH ×4 (06:29→22:03)
[2018-01-18] MEDS: amLODIPine BESYLATE 5 MG TABLET (FP) PO SCH (10:29)
[2018-01-18] MEDS: PANTOPRAZOLE 40 MG TABLET (FP) PO SCH (10:29)
[2018-01-18] MEDS: RAMIPRIL 5 MG CAPSULE (FP) PO SCH (10:29)
[2018-01-18] MEDS: sitaGLIPtin PHOSPHATE 50 MG TABLET PO SCH ×2 (10:29→22:03)
--- NOTE | 2018-01-18 11:18 | PN ---
Progress Note, Physician - Current Medication List Current Medications: Active Medications Amlodipine Besylate (Norvasc -) 5 mg PO DAILY [facility] Last Admin: 01/18/18 10:29 Dose: 5 mg Insulin Aspart (Novolog Vial Sliding Scale -) [address] [facility]; Protocol Last Admin: 01/18/18 06:29 Dose: Not Given Ondansetron HCl (Zofran Injection) 4 mg IVPUSH Q4H PRN PRN Reason: NAUSEA AND/OR VOMITING Pantoprazole Sodium (Protonix -) 40 mg PO DAILY [facility] Last Admin: 01/18/18 10:29 Dose: 40 mg Ramipril (Altace -) 5 mg PO DAILY [facility] Last Admin: 01/18/18 10:29 Dose: 5 mg Sitagliptin Phosphate (Januvia -) 50 mg PO BID [facility] Last Admin: 01/18/18 10:29 Dose: 50 mg Tamsulosin HCl (Flomax -) 0.4 mg PO DAILY@0830 [facility] - Objective Vital Signs: Vital Signs Temperature 98.1 F 01/18/18 06:00 Pulse Rate 63 01/18/18 06:00 Respiratory Rate 18 01/18/18 06:00 Blood Pressure 135/62 01/18/18 06:00 O2 Sat by Pulse Oximetry (%) 97 01/17/18 21:00 Cardiovascular: Yes: S1, S2 Respiratory: Yes: Regular, CTA Bilaterally Gastrointestinal: Yes: Normal Bowel Sounds, Soft Labs: CBC, BMP 01/17/18 05:30 01/17/18 05:30 INR, PTT INR 0.97 (0.83-1.09) 01/15/18 05:59 Problem List - Problems (1) Vertigo Assessment/Plan: -CT head negative -Neuro consult noted -Tele -Cardio noted -Follow Up Labs Code(s): R42 - DIZZINESS AND GIDDINESS (2) Vomiting Code(s): R11.10 - VOMITING, UNSPECIFIED Qualifiers: Vomiting type: unspecified Vomiting Intractability: non-intractable Nausea presence: with nausea Qualified Code(s): R11.2 - Nausea with vomiting, unspecified (3) DM2 (diabetes mellitus, type 2) Assessment/Plan: -BGM and SS -compliance with meds discussed Code(s): E11.9 - TYPE 2 DIABETES MELLITUS WITHOUT COMPLICATIONS (4) HTN (hypertension) Assessment/Plan: better same meds Code(s): I10 - ESSENTIAL (PRIMARY) HYPERTENSION (5) Hydronephrosis Assessment/Plan: -Urology and renal consult f/u ua Code(s): N13.30 - UNSPECIFIED HYDRONEPHROSIS
[2018-01-18] MEDS ORDERED: INSULIN (NOVOLOG) ASPART 100 UNITS/ML 10ML VIAL ONE (12:37)
[2018-01-18 15:23] LABS: URINE APPEARANCE CLEAR; URINE BILIRUBIN NEGATIVE (<2.0 mg/dL); URINE COLOR LTYELLOW; URINE GLUCOSE (UA) 3+ (NEGATIVE); URINE KETONE TRACE (NEGATIVE); URINE LEUK ESTERASE NEGATIVE (NEGATIVE); URINE NITRITE NEGATIVE (NEGATIVE); URINE PROTEIN NEGATIVE (NEGATIVE); URINE UROBILINOGEN NEGATIVE mg/dL (0.2-1.0)
[2018-01-18 15:33] LABS: URINE MUCUS RARE
[2018-01-19] MEDS: INSULIN SLIDING SCALE (NOVOLOG) 1 VIAL SQ SCH ×2 (06:22→11:59)
[2018-01-19] MEDS ORDERED: TAMSULOSIN HCL 0.4 MG CAP.ER.24H (FP) PO SCH (08:30)
[2018-01-19] MEDS: RAMIPRIL 5 MG CAPSULE (FP) PO SCH (10:54)
[2018-01-19] MEDS: amLODIPine BESYLATE 5 MG TABLET (FP) PO SCH (10:54)
[2018-01-19] MEDS: PANTOPRAZOLE 40 MG TABLET (FP) PO SCH (10:54)
[2018-01-19] MEDS: sitaGLIPtin PHOSPHATE 50 MG TABLET PO SCH (10:54)
--- NOTE | 2018-01-19 12:11 | DS ---
Physical Examination Vital Signs: Vital Signs Temperature 98.2 F 01/19/18 05:00 Pulse Rate 76 01/19/18 05:00 Respiratory Rate 19 01/19/18 05:00 Blood Pressure 139/74 01/19/18 05:00 O2 Sat by Pulse Oximetry (%) 99 01/18/18 21:00 Findings/Remarks: 62 M with h/o DM, HTN presenting to ED with severe dizziness, nausea, and vomiting. Pt states that at 11PM last night, he began to experience a "strange sensation". He states that his apartment started to spin around him. Pt subsequently vomited several times. He denies abdominal pain. Denies diarrhea. Denies HENDRIX. No F/C. Denies CP/SOB. He currently reports feeling very dizzy and nauseous. Denies weakness/numbness in any extremity. Constitutional: Yes: Well Nourished, No Distress, Calm Cardiovascular: Yes: Regular Rate and Rhythm Respiratory: Yes: Regular Gastrointestinal: Yes: Normal Bowel Sounds, Soft Musculoskeletal: Yes: WNL Extremities: Yes: WNL Edema: No Peripheral Pulses WNL: Yes Neurological: Yes: Alert, Oriented Psychiatric: Yes: Alert, Oriented Labs: CBC, BMP 01/17/18 05:30 01/17/18 05:30 Discharge Summary Reason For Visit: VERTIGO,VOMITING Current Active Problems Auditory disturbance (Acute) Diabetic gastroparesis associated with type 2 diabetes mellitus (Acute) Dizziness (Acute) Vertigo (Acute) Vomiting (Acute) Hospital Course: Laboratory Last Values WBC 5.7 K/mm3 (4.0-10.0) 01/17/18 05:30 RBC 5.51 M/mm3 (4.00-5.60) 01/17/18 05:30 Hgb 16.5 GM/dL (11.7-16.9) 01/17/18 05:30 Hct 49.6 % (35.4-49) H 01/17/18 05:30 MCV 89.9 fl (80-96) 01/17/18 05:30 MCH 29.9 pg (25.7-33.7) 01/17/18 05:30 MCHC 33.3 g/dl (32.0-35.9) 01/17/18 05:30 RDW 12.9 % (11.9-15.9) 01/17/18 05:30 Plt Count 185 K/MM3 (134-434) 01/17/18 05:30 MPV 7.4 fl (7.5-11.1) L 01/17/18 05:30 Absolute Neuts (auto) 3.4 K/mm3 (1.5-8.0) 01/17/18 05:30 Neutrophils % 59.4 % (42.8-82.8) 01/17/18 05:30 Lymphocytes % 26.6 % (8-40) D 01/17/18 05:30 Monocytes % 12.2 % (3.8-10.2) H 01/17/18 05:30 Eosinophils % 1.4 % (0-4.5) D 01/17/18 05:30 Basophils % 0.4 % (0-2.0) 01/17/18 05:30 Nucleated RBC % 0 % (0-0) 01/17/18 05:30 PT with INR 11.00 SEC (9.7-13.0) 01/15/18 05:59 INR 0.97 (0.83-1.09) 01/15/18 05:59 Sodium 139 mmol/L (136-145) 01/17/18 05:30 Potassium 3.7 mmol/L (3.5-5.1) 01/17/18 05:30 Chloride 101 mmol/L (98-107) 01/17/18 05:30 Carbon Dioxide 27 mmol/L (21-32) 01/17/18 05:30 Anion Gap 11 MMOL/L (8-16) 01/17/18 05:30 BUN 8 mg/dL (7-18) 01/17/18 05:30 Creatinine 1.1 mg/dL (0.55-1.3) 01/17/18 05:30 Creat Clearance w eGFR > 60 (>60) 01/17/18 05:30 POC Glucometer 245 UNITS (80-120) 01/19/18 11:58 Random Glucose 213 mg/dL (74-106) H 01/17/18 05:30 Calcium 8.6 mg/dL (8.5-10.1) 01/17/18 05:30 Total Bilirubin 0.8 mg/dL (0.2-1) 01/17/18 05:30 AST 30 U/L (15-37) 01/17/18 05:30 ALT 28 U/L (13-61) 01/17/18 05:30 Alkaline Phosphatase 103 U/L (45-117) 01/17/18 05:30 Creatine Kinase 310 IU/L (26-308) H 01/18/18 10:45 Creatine Kinase Index 0.8 % (0.0-5.0) 01/18/18 10:45 CK-MB (CK-2) 2.5 ng/mL (0.5-3.6) 01/18/18 10:45 Troponin I 0.02 ng/ml (0.00-0.05) 01/18/18 10:45 Total Protein 6.8 g/dl (6.4-8.2) 01/17/18 05:30 Albumin 3.6 g/dl (3.4-5.0) 01/17/18 05:30 Triglycerides Cancelled 01/15/18 05:59 Cholesterol Cancelled 01/15/18 05:59 Total LDL Cholesterol Cancelled 01/15/18 05:59 HDL Cholesterol Cancelled 01/15/18 05:59 Lipase 272 U/L (73-393) 01/15/18 05:34 Urine Color Ltyellow 01/18/18 14:40 Urine Appearance Clear 01/18/18 14:40 Urine pH 6.0 (5.0-8.0) 01/18/18 14:40 Ur Specific [place] 1.010 (1.001-1.035) 01/18/18 14:40 Urine Protein Negative (NEGATIVE) 01/18/18 14:40 Urine Glucose (UA) 3+ (NEGATIVE) H 01/18/18 14:40 Urine Ketones Trace (NEGATIVE) H 01/18/18 14:40 Urine Blood 1+ (NEGATIVE) H 01/18/18 14:40 Urine Nitrite Negative (NEGATIVE) 01/18/18 14:40 Urine Bilirubin Negative (<2.0 mg/dL) 01/18/18 14:40 Urine Urobilinogen Negative mg/dL (0.2-1.0) 01/18/18 14:40 Ur Leukocyte Esterase Negative (NEGATIVE) 01/18/18 14:40 Urine WBC (Auto) 1 /hpf (3-5) 01/18/18 14:40 Urine RBC (Auto) 4 /hpf (0-3) 01/18/18 14:40 Ur Epithelial Cells Rare /HPF (FEW) 01/15/18 09:55 Urine Mucus Rare 01/18/18 14:40 Acetone, Qual Negative (NEGATIVE) 01/15/18 05:59 Blood Type B POSITIVE 01/15/18 05:59 Antibody Screen Negative 01/15/18 05:59 Condition: Stable - Instructions Referrals: Hever Sears MD [Staff Physician] - Disposition: HOME - Home Medications Comprehensive Discharge Medication List: Ambulatory Orders Sitagliptin Phosphate [Januvia] 50 mg PO BID 09/06/15 Amlodipine Besylate [Norvasc -] 5 mg PO DAILY #30 tablet 01/18/18 Pantoprazole Sodium [Protonix -] 40 mg PO DAILY #30 tablet.ec 01/18/18 Ramipril [Altace] 5 mg PO DAILY #30 capsule 01/18/18
--- NOTE | 2018-01-19 12:23 | CONSULT ---
Consult - text type - Consultation Consultation Note: Renal Consult for Hydronephrosis This is a 62 year old gentleman with hx of DM and hypertension who presented with N/V and found to have b/l hydronephrosis. Pt denies any flank pain or blood in urine. Was told by his PMD that his prostate was enlarged. No dysirua, hesitency, gross hematuria. Making urine. No SOB, CP, Abd pain. Had some N/V since being admitted. PMhx: as above Allergies: NKDA Family Hx: NC Social Hx: No T/A/D ROS: as per HPI, all other pertinent ros negative Home Medications Medication Instructions Recorded Sitagliptin Phosphate [Januvia] 50 mg PO BID 09/06/15 Amlodipine Besylate [Norvasc -] 5 mg PO DAILY #30 tablet 01/18/18 Pantoprazole Sodium [Protonix -] 40 mg PO DAILY #30 tablet.ec 01/18/18 Ramipril [Altace] 5 mg PO DAILY #30 capsule 01/18/18 Vital Signs Temperature 98.2 F 01/19/18 05:00 Pulse Rate 76 01/19/18 05:00 Respiratory Rate 19 01/19/18 05:00 Blood Pressure 139/74 01/19/18 05:00 O2 Sat by Pulse Oximetry (%) 99 01/18/18 21:00 NAD awake and alert Neck supple No JVD RRR, No M/R CTA no rales or wheeze soft NT/ND, no bladder distension no Le edema CBC, BMP 01/17/18 05:30 01/17/18 05:30 Current Medications Amlodipine Besylate (Norvasc -) 5 mg PO DAILY [facility] Last Admin: 01/19/18 10:54 Dose: 5 mg Insulin Aspart (Novolog Vial Sliding Scale -) 1 vial SQ ACHS [facility]; Protocol Last Admin: 01/19/18 11:59 Dose: 2 units Ondansetron HCl (Zofran Injection) 4 mg IVPUSH Q4H PRN PRN Reason: NAUSEA AND/OR VOMITING Pantoprazole Sodium (Protonix -) 40 mg PO DAILY [facility] Last Admin: 01/19/18 10:54 Dose: 40 mg Ramipril (Altace -) 5 mg PO DAILY [facility] Last Admin: 01/19/18 10:54 Dose: 5 mg Sitagliptin Phosphate (Januvia -) 50 mg PO BID [facility] Last Admin: 01/19/18 10:54 Dose: 50 mg Tamsulosin HCl (Flomax -) 0.4 mg PO DAILY@0830 [facility] Last Admin: 01/19/18 10:54 Dose: 0.4 mg 62 year old gentleman with hx of DM and hypertension who presented with N/V and found to have b/l hydronephrosis. Pt denies any flank pain or blood in urine. #B/L Hydronephrosis in setting of enlarged prostate (hx of TURP in 2016) #Nausea and vomiting #Hypertension #DM Pt likely with chronic hydronephrosis in setting of BPH/Urinar retention Renal function appears stable at baseline continue flomax Urology consult, may require repeat TURP as outpatient Continue Ramipril Supportive care Thank you Will follow Srinath May DO
[2018-01-19 16:26] VITALS: BP 142/84; PULSE 80; TEMP 98.3
== END 2018-01-19 19:03 | disposition home or self-care (01) | DRG 149 ==
LOC: JER 04:53 → JERBED 08:35 → J4W 16:52
PROVIDERS: ADMIT Family Medicine; ATTEND Family Medicine
DX: H83.09 Labyrinthitis, unspecified ear (principal); G93.49 Other encephalopathy; N13.30 Unspecified hydronephrosis; R42 Dizziness and giddiness; I10 Essential (primary) hypertension; E78.5 Hyperlipidemia, unspecified; I27.20 Pulmonary hypertension, unspecified; F41.9 Anxiety disorder, unspecified; N40.0 Benign prostatic hyperplasia without lower urinary tract symptoms; N13.9 Obstructive and reflux uropathy, unspecified; H91.90 Unspecified hearing loss, unspecified ear; E11.43 Type 2 diabetes mellitus with diabetic autonomic (poly)neuropathy; K31.84 Gastroparesis; R11.2 Nausea with vomiting, unspecified; N40.1 Benign prostatic hyperplasia with lower urinary tract symptoms; R33.8 Other retention of urine; R26.81 Unsteadiness on feet
CPT/HCPCS: 36415; 70450-TC; 71045-TC-FY; 74019-TC-FY; 76775-TC; 76856-TC; 80053; 80061; 81003; 81015; 82009; 82550; 82553; 82570; 82962; 83690; 83721; 84156; 84484; 85025; 85610; 86850; 86900; 86901; 87086; 93005; 93010; 93306-TC; 97116-GP; 97161-GP; 99284-25; J0131; J7030

== ENCOUNTER 2020-03-13 15:43 | Inpatient (IN) | payer OTHER, BC ==
[2020-03-13 17:23] LABS: BASO % 0.5 % (0-2.0); EOS % 0.7 % (0-4.5); HEMATOCRIT 52.8 % (35.4-49); MCHC 34.1 g/dl (32.0-35.9); MEAN PLT VOLUME 7.6 fl (7.5-11.1); MONO % 10.2 % (3.8-10.2); NEUT % 70.6 % (42.8-82.8); PLATELET COUNT 212 K/MM3 (134-434); RDW 12.8 % (11.9-15.9); WHITE BLOOD COUNT 6.7 K/mm3 (4.0-10.0)
[2020-03-13 17:44] LABS: POTASSIUM 4.3 mmol/L (3.5-5.1)
[2020-03-13 17:46] LABS: ALBUMIN 4.2 g/dl (3.4-5.0); BLOOD UREA NITROGEN 15.2 mg/dL (7-18); CALCIUM 9.1 mg/dL (8.5-10.1)
[2020-03-13 17:49] LABS: CREATININE 1.3 mg/dL (0.55-1.3)
[2020-03-13 17:51] LABS: BILIRUBIN,TOTAL 0.5 mg/dL (0.2-1); TOT PROT 7.9 g/dl (6.4-8.2)
[2020-03-13] MEDS ORDERED: LORazepam 2 MG/ML SDV VIAL ONE ×2 (19:16→19:27)
[2020-03-13 20:53] LABS: MAGNESIUM 1.8 mg/dL (1.8-2.4)
[2020-03-13] MEDS ORDERED: LACTATED RINGERS SOLUTION 1000 ML INFUS.BAG IV ONE (23:27)
[2020-03-14 01:32] LABS: URINE APPEARANCE CLOUDY; URINE COLOR RED
[2020-03-14 01:33] LABS: URINE BILIRUBIN NEGATIVE (NEGATIVE); URINE GLUCOSE (UA) 250 (NEGATIVE); URINE KETONE NEGATIVE (NEGATIVE); URINE NITRITE NEGATIVE (NEGATIVE); URINE PROTEIN TRACE (NEGATIVE); URINE UROBILINOGEN 0.2 mg/dL (0.2-1.0)
[2020-03-14 01:34] LABS: EPI CELLS 13 /uL (0-25.1); HYALINE CASTS 1 /uL (0-3.1); URINE BACTERIA 52 /uL (0-1359); URINE LEUK ESTERASE N (NEGATIVE); URINE RBC 1783 /uL (0-23.9); URINE WBC 18 /uL (0-25.8)
[2020-03-14 02:32] LABS: METHADONE, UR NEGATIVE ng/ml (CUTOFF=300); OPIATES, URI NEGATIVE ng/ml (CUTOFF=300); PHENCYCLIDINE,URINE NEGATIVE ng/ml (CUTOFF=25); URINE BENZODIAZEPINES NEGATIVE ng/ml (CUTOFF=200)
[2020-03-14 02:41] LABS: COCAINE, UR NEGATIVE ng/ml (CUTOFF=300); URINE AMPHETAMINES NEGATIVE ng/ml (CUTOFF=500); URINE BARBITURATES NEGATIVE ng/ml (CUTOFF=200)
[2020-03-14 03:47] VITALS: BMI 26.9
[2020-03-14] MEDS: DEXTROSE 5%-0.45% SALINE 1,000 ML IV SCH (04:30)
[2020-03-14 07:02] LABS: BASO % 0.5 % (0-2.0); EOS % 0.7 % (0-4.5); HEMOGLOBIN 17.3 GM/dL (11.7-16.9); LYMPH % 19.1 % (8-40); MCH 30.6 pg (25.7-33.7); MCHC 33.9 g/dl (32.0-35.9); MEAN CELL VOLUME 90.3 fl (80-96); MEAN PLT VOLUME 7.6 fl (7.5-11.1); MONO % 10.7 % (3.8-10.2); PLATELET COUNT 215 K/MM3 (134-434); RBC 5.64 M/mm3 (4.00-5.60); RDW 12.8 % (11.9-15.9); WHITE BLOOD COUNT 6.6 K/mm3 (4.0-10.0)
[2020-03-14 07:27] LABS: CHLORIDE 102 mmol/L (98-107); POTASSIUM 4.1 mmol/L (3.5-5.1); SODIUM 136 mmol/L (136-145)
[2020-03-14 07:37] LABS: ANION GAP 6 MMOL/L (8-16); CALCIUM 8.7 mg/dL (8.5-10.1); CO2 28 mmol/L (21-32)
[2020-03-14 07:38] LABS: ALBUMIN 3.8 g/dl (3.4-5.0); BLOOD UREA NITROGEN 12.2 mg/dL (7-18); GLUCOSE,RANDOM 197 mg/dL (74-106)
[2020-03-14 07:41] LABS: CHOLESTEROL 128 mg/dL (50-200); SGOT/AST 16 U/L (15-37); SGPT/ALT 24 U/L (13-61)
[2020-03-14 07:42] LABS: BILIRUBIN,TOTAL 0.7 mg/dL (0.2-1); CREATININE 1.3 mg/dL (0.55-1.3); LDL CHOLESTEROL (ONLY SJRH) 75 mg/dL (5-100); TRIGLYCERIDES 62 mg/dL (0-150)
[2020-03-14 07:43] LABS: ALK PHOS 124 U/L (45-117); HDL CHOLESTEROL 50 mg/dL (40-60)
[2020-03-14 07:45] LABS: TOT PROT 7.3 g/dl (6.4-8.2)
[2020-03-14] MEDS ORDERED: PNEUMOC 13-VAL CONJ-DIP CRM/PF 0.5 ML DISP.SYRIN IM ONE (08:00)
[2020-03-14] MEDS ORDERED: MECLIZINE HCL 25 MG TABLET (FP) PO PRN (18:36)
[2020-03-14] MEDS ORDERED: INSULIN (NOVOLOG) ASPART 100 UNITS/ML 10ML VIAL ONE (22:08)
[2020-03-14] MEDS: INSULIN SLIDING SCALE (NOVOLOG) 1 VIAL SQ SCH (22:51)
[2020-03-15 01:53] VITALS: TEMP 98.2
[2020-03-15] MEDS: DEXTROSE 5%-0.45% SALINE 1,000 ML IV SCH (03:30)
[2020-03-15] MEDS: INSULIN SLIDING SCALE (NOVOLOG) 1 VIAL SQ SCH ×2 (06:15→12:01)
[2020-03-15] MEDS ORDERED: ATORVASTATIN CA 40 MG TABLET (FP) PO ONE (08:00)
[2020-03-15] MEDS ORDERED: TAMSULOSIN HCL 0.4 MG CAP PO SCH (08:30)
[2020-03-15 09:18] VITALS: BP 162/81; PULSE 85
[2020-03-15] MEDS ORDERED: RAMIPRIL 5 MG CAPSULE PO SCH (10:00)
[2020-03-15] MEDS ORDERED: amLODIPine BESYLATE 5 MG TABLET (FP) PO SCH (10:00)
[2020-03-15] MEDS ORDERED: PANTOPRAZOLE 40 MG TABLET PO SCH (10:00)
[2020-03-15] MEDS ORDERED: ASPIRIN COATED 81 MG TABLET.EC PO SCH (10:00)
== END 2020-03-15 13:30 | disposition home health service (06) | DRG 74 ==
LOC: SUPCPDRO 15:43 → JER 15:43 → JERBED 21:55 → J4W 03-14 01:58
PROVIDERS: ADMIT Internal Medicine; ATTEND Family Medicine
DX: E11.41 Type 2 diabetes mellitus with diabetic mononeuropathy (principal); H49.00 Third [oculomotor] nerve palsy, unspecified eye; I10 Essential (primary) hypertension; E78.5 Hyperlipidemia, unspecified; N40.0 Benign prostatic hyperplasia without lower urinary tract symptoms; Z86.73 Personal history of transient ischemic attack (TIA), and cerebral infarction without residual deficits; E11.51 Type 2 diabetes mellitus with diabetic peripheral angiopathy without gangrene
CPT/HCPCS: 36415; 70450-TC; 70496-TC; 71045-TC-FY; 80053; 80061; 80307; 81003; 82550; 82607; 82746; 82962; 83036; 83721; 83735; 84207; 84252; 84425; 84439; 84443; 84481; 84484; 85025; 85651; 86140; 87086; 93005; 93010; 97116-GP; 97162-GP; 99285-25; C9803; Q9967; U0003

== ENCOUNTER 2021-07-08 11:28 | Observation (INO) | payer OTHER ==
[2021-07-08 11:52] VITALS: BMI 22.3
[2021-07-08] MEDS ORDERED: DIPHTH,PERTUSS(ACELL),TET 0.5 ML DISP.SYRIN IM ONE ×2 (12:24→12:46)
[2021-07-08] MEDS ORDERED: SODIUM CHLORIDE 1,000 ML IV STA (12:50)
[2021-07-08 12:59] LABS: BASO % 0.2 % (0-2.0); EOS % 0.4 % (0-4.5); HEMATOCRIT 49.2 % (35.4-49); HEMOGLOBIN 16.9 GM/dL (11.7-16.9); LYMPH % 12.5 % (8-40); MCHC 34.3 g/dl (32.0-35.9); MEAN CELL VOLUME 90.3 fl (80-96); MEAN PLT VOLUME 7.2 fl (7.5-11.1); MONO % 8.7 % (3.8-10.2); NEUT % 78.2 % (42.8-82.8); PLATELET COUNT 250 10^3/uL (134-434); RBC 5.44 M/mm3 (4.00-5.60); RDW 13.6 % (11.9-15.9); WHITE BLOOD COUNT 6.5 K/mm3 (4.0-10.0)
[2021-07-08 13:04] LABS: EPI CELLS 1 /uL (0-25.1); HYALINE CASTS 0 /uL (0-3.1); URINE APPEARANCE CLEAR; URINE BACTERIA 2 /uL (0-1359); URINE BILIRUBIN NEGATIVE (NEGATIVE); URINE COLOR YELLOW; URINE GLUCOSE (UA) 3+ (NEGATIVE); URINE KETONE TRACE (NEGATIVE); URINE LEUK ESTERASE NEGATIVE (NEGATIVE); URINE NITRITE NEGATIVE (NEGATIVE); URINE PROTEIN TRACE (NEGATIVE); URINE RBC 464 /uL (0-23.9); URINE UROBILINOGEN 0.2 mg/dL (0.2-1.0); URINE WBC 7 /uL (0-25.8)
[2021-07-08 13:06] LABS: INR 1.03 (0.83-1.09); PROTHROMBIN TIME (PATIENT) 11.9 SEC (9.7-13.0)
[2021-07-08 13:09] LABS: ACTIVATED PTT 28.7 SECONDS (25.2-36.5)
[2021-07-08 13:19] LABS: CALCIUM 9.4 mg/dL (8.5-10.1)
[2021-07-08 13:21] LABS: ALBUMIN 4.2 g/dl (3.4-5.0); BLOOD UREA NITROGEN 13.8 mg/dL (7-18); MAGNESIUM 2.3 mg/dL (1.8-2.4)
[2021-07-08 13:23] LABS: CREATININE 1.3 mg/dL (0.55-1.3)
[2021-07-08] MEDS ORDERED: ACETAMINOPHEN 325 MG TABLET (FP) PO PRN (15:37)
[2021-07-08] MEDS ORDERED: PANTOPRAZOLE 40 MG TABLET ONE (17:11)
[2021-07-08] MEDS: PANTOPRAZOLE 40 MG TABLET PO SCH (17:15)
[2021-07-08] MEDS ORDERED: HEPARIN NA (PORCINE) 5,000 UNITS/ML 1ML VIAL ONE (21:01)
[2021-07-08] MEDS ORDERED: sitaGLIPtin PHOSPHATE 50 MG TABLET ONE (21:01)
[2021-07-08] MEDS ORDERED: ATORVASTATIN CA 40 MG TABLET (FP) ONE (21:01)
[2021-07-08] MEDS: sitaGLIPtin PHOSPHATE 50 MG TABLET PO SCH (21:07)
[2021-07-08] MEDS: ATORVASTATIN CA 40 MG TABLET (FP) PO SCH (21:07)
[2021-07-08] MEDS: HEPARIN NA (PORCINE) 5,000 UNITS/ML 1ML VIAL SQ SCH (21:07)
[2021-07-09] MEDS ORDERED: RAMIPRIL 5 MG CAPSULE ONE (08:55)
[2021-07-09] MEDS ORDERED: HEPARIN NA (PORCINE) 5,000 UNITS/ML 1ML VIAL ONE ×2 (08:55→23:42)
[2021-07-09] MEDS ORDERED: sitaGLIPtin PHOSPHATE 50 MG TABLET ONE ×2 (08:55→23:42)
[2021-07-09] MEDS ORDERED: TAMSULOSIN HCL 0.4 MG CAP ONE (08:55)
[2021-07-09] MEDS ORDERED: PANTOPRAZOLE 40 MG TABLET ONE (08:55)
[2021-07-09] MEDS ORDERED: amLODIPine BESYLATE 5 MG TABLET (FP) ONE ×2 (08:55→08:58)
[2021-07-09] MEDS ORDERED: ASPIRIN COATED 81 MG TABLET.EC ONE (08:55)
[2021-07-09] MEDS: ASPIRIN COATED 81 MG TABLET.EC PO SCH (09:10)
[2021-07-09] MEDS: HEPARIN NA (PORCINE) 5,000 UNITS/ML 1ML VIAL SQ SCH (09:10)
[2021-07-09] MEDS: PANTOPRAZOLE 40 MG TABLET PO SCH (09:10)
[2021-07-09] MEDS: TAMSULOSIN HCL 0.4 MG CAP PO SCH (09:10)
[2021-07-09] MEDS: RAMIPRIL 5 MG CAPSULE PO SCH (09:10)
[2021-07-09] MEDS: sitaGLIPtin PHOSPHATE 50 MG TABLET PO SCH (09:10)
[2021-07-09] MEDS: amLODIPine BESYLATE 5 MG TABLET (FP) PO SCH (09:11)
[2021-07-09 09:17] LABS: HEMATOCRIT 49.1 % (35.4-49); HEMOGLOBIN 16.5 GM/dL (11.7-16.9); MCH 30.4 pg (25.7-33.7); MCHC 33.6 g/dl (32.0-35.9); MEAN CELL VOLUME 90.3 fl (80-96); MEAN PLT VOLUME 7.8 fl (7.5-11.1); PLATELET COUNT 266 10^3/uL (134-434); RBC 5.44 M/mm3 (4.00-5.60); RDW 13.5 % (11.9-15.9); WHITE BLOOD COUNT 6.6 K/mm3 (4.0-10.0)
[2021-07-09 09:44] LABS: CALCIUM 9.1 mg/dL (8.5-10.1)
[2021-07-09 09:45] LABS: BLOOD UREA NITROGEN 12.8 mg/dL (7-18)
[2021-07-09 09:47] LABS: CREATININE 1.2 mg/dL (0.55-1.3)
[2021-07-09 09:50] LABS: BILIRUBIN,TOTAL 0.9 mg/dL (0.2-1); TOT PROT 7.7 g/dl (6.4-8.2)
[2021-07-09] MEDS ORDERED: ATORVASTATIN CA 40 MG TABLET (FP) ONE (23:42)
[2021-07-10 06:08] LABS: SARS-CoV-2 NAA Not Detected (Not Detected)
[2021-07-10] MEDS: INSULIN SLIDING SCALE (NOVOLOG) 1 VIAL SQ SCH ×5 (06:19→21:24)
[2021-07-10] MEDS: amLODIPine BESYLATE 5 MG TABLET (FP) PO SCH (09:50)
[2021-07-10] MEDS: ASPIRIN COATED 81 MG TABLET.EC PO SCH (09:51)
[2021-07-10] MEDS: PANTOPRAZOLE 40 MG TABLET PO SCH (09:51)
[2021-07-10] MEDS: TAMSULOSIN HCL 0.4 MG CAP PO SCH (09:51)
[2021-07-10] MEDS: sitaGLIPtin PHOSPHATE 50 MG TABLET PO SCH ×3 (09:51→21:24)
[2021-07-10] MEDS: RAMIPRIL 5 MG CAPSULE PO SCH (09:51)
[2021-07-10] MEDS: HEPARIN NA (PORCINE) 5,000 UNITS/ML 1ML VIAL SQ SCH ×3 (09:52→21:24)
[2021-07-10] MEDS: ATORVASTATIN CA 40 MG TABLET (FP) PO SCH ×2 (21:24)
[2021-07-11] MEDS: metFORMIN HCL 500 MG TABLET (FP) PO SCH ×2 (06:46→16:58)
[2021-07-11] MEDS: GLIMEPIRIDE 4 MG TABLET PO SCH (06:46)
[2021-07-11] MEDS: INSULIN SLIDING SCALE (NOVOLOG) 1 VIAL SQ SCH ×4 (06:49→21:32)
[2021-07-11 07:19] LABS: CALCIUM 9.3 mg/dL (8.5-10.1)
[2021-07-11 07:20] LABS: ALBUMIN 3.7 g/dl (3.4-5.0)
[2021-07-11 07:23] LABS: CREATININE 1.2 mg/dL (0.55-1.3)
[2021-07-11 07:25] LABS: BILIRUBIN,TOTAL 0.8 mg/dL (0.2-1); TOT PROT 6.6 g/dl (6.4-8.2)
[2021-07-11] MEDS: amLODIPine BESYLATE 5 MG TABLET (FP) PO SCH (10:18)
[2021-07-11] MEDS: RAMIPRIL 5 MG CAPSULE PO SCH (10:18)
[2021-07-11] MEDS: PANTOPRAZOLE 40 MG TABLET PO SCH (10:18)
[2021-07-11] MEDS: HEPARIN NA (PORCINE) 5,000 UNITS/ML 1ML VIAL SQ SCH ×2 (10:18→21:38)
[2021-07-11] MEDS: ASPIRIN COATED 81 MG TABLET.EC PO SCH (10:18)
[2021-07-11] MEDS: sitaGLIPtin PHOSPHATE 50 MG TABLET PO SCH ×2 (10:19→21:38)
[2021-07-11] MEDS: FINASTERIDE 5 MG TABLET (FP) PO SCH (10:19)
[2021-07-11] MEDS: TAMSULOSIN HCL 0.4 MG CAP PO SCH ×2 (10:19→17:32)
[2021-07-11] MEDS: ATORVASTATIN CA 40 MG TABLET (FP) PO SCH (21:38)
[2021-07-12] MEDS: INSULIN SLIDING SCALE (NOVOLOG) 1 VIAL SQ SCH ×2 (06:15→11:07)
[2021-07-12] MEDS: metFORMIN HCL 500 MG TABLET (FP) PO SCH (06:59)
[2021-07-12] MEDS: GLIMEPIRIDE 4 MG TABLET PO SCH (07:00)
[2021-07-12] MEDS: sitaGLIPtin PHOSPHATE 50 MG TABLET PO SCH (09:15)
[2021-07-12] MEDS: FINASTERIDE 5 MG TABLET (FP) PO SCH (09:15)
[2021-07-12] MEDS: RAMIPRIL 5 MG CAPSULE PO SCH (09:15)
[2021-07-12] MEDS: ASPIRIN COATED 81 MG TABLET.EC PO SCH (09:15)
[2021-07-12] MEDS: TAMSULOSIN HCL 0.4 MG CAP PO SCH (09:15)
[2021-07-12] MEDS: amLODIPine BESYLATE 5 MG TABLET (FP) PO SCH (09:15)
[2021-07-12] MEDS: PANTOPRAZOLE 40 MG TABLET PO SCH (09:15)
[2021-07-12] MEDS: HEPARIN NA (PORCINE) 5,000 UNITS/ML 1ML VIAL SQ SCH (09:15)
[2021-07-12 15:31] VITALS: BP 156/91; PULSE 91; TEMP 97.9
== END 2021-07-12 16:03 ==
LOC: JER 11:28 → UNDOADMOB 14:47 → JERBED 14:47 → INTOOBSV 14:47 → JERBED 07-09 14:48 → J4S 07-10 00:31
PROVIDERS: ADMIT Family Medicine; ATTEND Family Medicine
PROC: 3E023GC Introduction of Other Therapeutic Substance into Muscle, Percutaneous Approach (ICD-10-PCS; principal; 2021-07-09)
PROC: 3E0337Z Introduction of Electrolytic and Water Balance Substance into Peripheral Vein, Percutaneous Approach (ICD-10-PCS; 2021-07-09)
PROC: 3E0234Z Introduction of Serum, Toxoid and Vaccine into Muscle, Percutaneous Approach (ICD-10-PCS; 2021-07-09)
DX: G31.84 Mild cognitive impairment of uncertain or unknown etiology (principal); E11.9 Type 2 diabetes mellitus without complications; E78.5 Hyperlipidemia, unspecified; G93.41 Metabolic encephalopathy; R31.9 Hematuria, unspecified; M62.81 Muscle weakness (generalized); N40.0 Benign prostatic hyperplasia without lower urinary tract symptoms; F41.9 Anxiety disorder, unspecified; N28.9 Disorder of kidney and ureter, unspecified; N13.30 Unspecified hydronephrosis; N13.4 Hydroureter; R33.9 Retention of urine, unspecified; R26.9 Unspecified abnormalities of gait and mobility; I10 Essential (primary) hypertension; G51.0 Bell's palsy; H91.90 Unspecified hearing loss, unspecified ear; S00.03XA Contusion of scalp, initial encounter; R21 Rash and other nonspecific skin eruption; R45.1 Restlessness and agitation; Z29.9 Encounter for prophylactic measures, unspecified; W18.39XA Other fall on same level, initial encounter; Y93.89 Activity, other specified; Y92.89 Other specified places as the place of occurrence of the external cause
CPT/HCPCS: 36415; 70450-TC; 71045-TC-FY; 72125-TC; 76775-TC; 76856-TC; 80053; 81003; 82550; 82962; 83036; 83735; 84443; 84484; 85025; 85027; 85610; 85730; 90471; 90715; 93005; 93010; 96360; 96372; 97116-GP; 97161-GP; 99285-25; C9803-CS; G0378; J1644; U0003; U0005

== ENCOUNTER 2021-09-20 10:47 | Inpatient (IN) | payer OTHER ==
[2021-09-20] MEDS ORDERED: LACTATED RINGERS SOLUTION 1000 ML INFUS.BAG IV ONE ×3 (12:00→14:37)
[2021-09-20 12:24] VITALS: BMI 33.1
[2021-09-20 12:50] LABS: BASO % 0.1 % (0-2.0); HEMATOCRIT 53.4 % (35.4-49); HEMOGLOBIN 17.6 GM/dL (11.7-16.9); LYMPH % 1.4 % (8-40); MCH 31.1 pg (25.7-33.7); MEAN CELL VOLUME 94.3 fl (80-96); MEAN PLT VOLUME 7.7 fl (7.5-11.1); MONO % 7.9 % (3.8-10.2); NEUT % 90.6 % (42.8-82.8); PLATELET COUNT 253 10^3/uL (134-434); RBC 5.66 M/mm3 (4.00-5.60); RDW 13.7 % (11.9-15.9); WHITE BLOOD COUNT 16.2 K/mm3 (4.0-10.0)
[2021-09-20 13:12] LABS: CHLORIDE 107 mmol/L (98-107); SODIUM 141 mmol/L (136-145)
[2021-09-20 13:16] LABS: ALBUMIN 3.7 g/dl (3.4-5.0); ANION GAP 12 MMOL/L (8-16); BLOOD UREA NITROGEN 37.8 mg/dL (7-18); CALCIUM 10.2 mg/dL (8.5-10.1); CO2 22 mmol/L (21-32); MAGNESIUM 2.8 mg/dL (1.8-2.4)
[2021-09-20 13:19] LABS: CHOLESTEROL 192 mg/dL (50-200); CREATININE 1.8 mg/dL (0.55-1.3); SGOT/AST 37 U/L (15-37); SGPT/ALT 46 U/L (13-61); TRIGLYCERIDES 86 mg/dL (0-150)
[2021-09-20 13:21] LABS: ALK PHOS 139 U/L (45-117); LDL CHOLESTEROL (ONLY SJRH) 105 mg/dL (5-100)
[2021-09-20 13:22] LABS: HDL CHOLESTEROL 79 mg/dL (40-60); LACTIC ACID 2.4 mmol/L (0.4-2.0)
[2021-09-20 13:39] LABS: VENOUS BASE EXCESS -8.3 mmol/L (-2-2); VENOUS O2 SATURATION 83.9 % (70-80); VENOUS PCO2 38.4 mmHg (38-52); VENOUS PH 7.281 (7.310-7.410)
[2021-09-20 14:07] LABS: GLUCOSE,RANDOM 571 mg/dL (74-106)
[2021-09-20] MEDS ORDERED: KCL 10 MEQ IVPB 10 MEQ/100 ML INFUS.BAG IVPB SCH (15:00)
[2021-09-20] MEDS ORDERED: INSULIN REGULAR 100 UNITS in SODIUM CHLORIDE 99 ML IVPB SCH (15:00)
[2021-09-20] MEDS ORDERED: KCL 10 MEQ IVPB 30 MEQ/300 ML INFUS.BAG IVPB ONE (15:05)
[2021-09-20] MEDS ORDERED: INSULIN REGULAR HUMAN 100 UNITS/ML *VIAL SQ ONE (15:05)
[2021-09-20 16:15] LABS: INR 1.14 (0.83-1.09); PROTHROMBIN TIME (PATIENT) 13.1 SEC (9.7-13.0)
[2021-09-20 16:18] LABS: ACTIVATED PTT 24.9 SECONDS (25.2-36.5)
[2021-09-20 16:32] LABS: EPI CELLS 2 /uL (0-25.1); HYALINE CASTS 1 /uL (0-3.1); URINE APPEARANCE CLEAR; URINE BACTERIA 57 /uL (0-1359); URINE BILIRUBIN NEGATIVE (NEGATIVE); URINE COLOR YELLOW; URINE GLUCOSE (UA) 3+ (NEGATIVE); URINE KETONE 1+ (NEGATIVE); URINE LEUK ESTERASE NEGATIVE (NEGATIVE); URINE NITRITE NEGATIVE (NEGATIVE); URINE PROTEIN 1+ (NEGATIVE); URINE RBC 13 /uL (0-23.9); URINE UROBILINOGEN 0.2 mg/dL (0.2-1.0); URINE WBC 23 /uL (0-25.8)
[2021-09-20] MEDS ORDERED: ENALAPRILAT DIHYDRATE 1.25 MG/1 ML VIAL IVPB ONE (16:50)
[2021-09-20] MEDS ORDERED: PIPERACILLIN/TAZOB 4.5 GM 4.5 GM in DEXTROSE 5%-WATER 100 ML IVPB ONE (16:52)
[2021-09-20] MEDS ORDERED: ENALAPRILAT DIHYDRATE 2.5 MG/2 ML VIAL IVPB ONE (17:03)
[2021-09-20] MEDS ORDERED: PIPERACILLIN/TAZOB 4.5 GM 4.5 GM/100 ML BAG IVPB ONE (17:03)
[2021-09-20 17:09] LABS: VENOUS BASE EXCESS -3.5 mmol/L (-2-2); VENOUS O2 SATURATION 84.1 % (70-80); VENOUS PCO2 46.3 mmHg (38-52); VENOUS PH 7.313 (7.310-7.410)
[2021-09-20 17:34] LABS: CHLORIDE 109 mmol/L (98-107); SODIUM 144 mmol/L (136-145)
[2021-09-20 17:36] LABS: ANION GAP 12 MMOL/L (8-16); CALCIUM 9.5 mg/dL (8.5-10.1); CO2 22 mmol/L (21-32)
[2021-09-20 17:37] LABS: BLOOD UREA NITROGEN 31.7 mg/dL (7-18)
[2021-09-20 17:40] LABS: CREATININE 1.4 mg/dL (0.55-1.3)
[2021-09-20 17:41] LABS: GLUCOSE,RANDOM 409 mg/dL (74-106)
[2021-09-20 23:39] LABS: VENOUS BASE EXCESS -3.6 mmol/L (-2-2); VENOUS O2 SATURATION 74.8 % (70-80); VENOUS PCO2 39.1 mmHg (38-52); VENOUS PH 7.357 (7.310-7.410)
[2021-09-20] MEDS ORDERED: VANCOMYCIN 1 GM in D5W (PRE-DOCKED) 1,000 MG/250 ML IVPB ONE (23:49)
[2021-09-21 00:04] LABS: CALCIUM 9.3 mg/dL (8.5-10.1)
[2021-09-21 00:05] LABS: BLOOD UREA NITROGEN 28.5 mg/dL (7-18)
[2021-09-21 00:08] LABS: CREATININE 1.3 mg/dL (0.55-1.3)
[2021-09-21 00:10] LABS: BILIRUBIN,TOTAL 0.8 mg/dL (0.2-1); TOT PROT 6.6 g/dl (6.4-8.2)
[2021-09-21] MEDS ORDERED: VANCOMYCIN 1 GRAM (PRE-DOCKED) 1,000 MG/250 ML BAG IVPB ONE (00:23)
[2021-09-21 00:43] LABS: ALBUMIN 2.9 g/dl (3.4-5.0)
[2021-09-21] MEDS ORDERED: ACETAMINOPHEN INJECTION 100 ML IVPB ONE (02:17)
[2021-09-21] MEDS: ACETAMINOPHEN 1000 MG/100 ML BAG IVPB PRN ×2 (02:25→12:12)
[2021-09-21] MEDS: INSULIN SLIDING SCALE (NOVOLOG) 1 VIAL SQ SCH ×4 (06:34→20:05)
[2021-09-21] MEDS: METOPROLOL TARTRATE 5 MG/5 ML VIAL IVPUSH PRN ×2 (06:40→20:09)
[2021-09-21] MEDS ORDERED: INSULIN SLIDING SCALE (NOVOLOG) 1 VIAL SQ SCH (07:00)
[2021-09-21] MEDS ORDERED: PIPERACILLIN/TAZOB 3.375 GM 3.375 GM in DEXTROSE 5%-WATER - 50 ML IVPB ONE (07:30)
[2021-09-21 08:18] LABS: HEMATOCRIT 47.6 % (35.4-49); HEMOGLOBIN 15.7 GM/dL (11.7-16.9); MCH 30.8 pg (25.7-33.7); MEAN CELL VOLUME 93.4 fl (80-96); MEAN PLT VOLUME 8.1 fl (7.5-11.1); PLATELET COUNT 242 10^3/uL (134-434); RBC 5.09 M/mm3 (4.00-5.60); RDW 13.5 % (11.9-15.9); WHITE BLOOD COUNT 19.1 K/mm3 (4.0-10.0)
[2021-09-21] MEDS ORDERED: PIPERACILLIN/TAZOBACTAM 3.375 GM VIAL IVPB ONE ×2 (09:23→17:16)
[2021-09-21] MEDS ORDERED: DEXTROSE 5%-WATER - 50 ML IVPB ONE ×2 (09:23→17:16)
[2021-09-21 09:40] LABS: ANISOCYTOSIS 0; HELMET CELLS 0; HOWELL-JOLLY BODIES 0; MACROCYTOSIS 0; OVALOCYTE 0; ROULEAU 0; SICKELED CELLS 0; TARGET CELLS 0; TEAR DROP CELLS 0; TOXIC GRANULATION 0
[2021-09-21 09:47] LABS: CALCIUM 9.2 mg/dL (8.5-10.1); CREATININE 1.3 mg/dL (0.55-1.3); MAGNESIUM 2.1 mg/dL (1.8-2.4)
[2021-09-21] MEDS ORDERED: VANCOMYCIN/WATER 1,250 MG/250 ML BAG IVPB SCH (12:00)
[2021-09-21] MEDS ORDERED: VANCOMYCIN/WATER 1250 MG 1,250 MG/250 ML BAG IVPB SCH (12:00)
[2021-09-21] MEDS: POTASSIUM CHLORIDE 10 MEQ in SODIUM CHLORIDE 0.45% 1,000 ML IVPB SCH (12:16)
[2021-09-21] MEDS ORDERED: PIPERACILLIN/TAZOB 3.375 GM 3.375 GM in DEXTROSE 5%-WATER - 50 ML IVPB SCH (12:30)
[2021-09-21] MEDS ORDERED: LIDOCAINE HCL 2% JELLY 10 ML CARTRIDGE ONE (12:30)
[2021-09-21] MEDS: PIPERACILLIN/TAZOB 3.375 GM 3.375 GM in DEXTROSE 5%-WATER - 50 ML IVPB SCH (17:35)
[2021-09-22] MEDS ORDERED: PIPERACILLIN/TAZOBACTAM 3.375 GM VIAL IVPB ONE ×2 (03:14→10:08)
[2021-09-22] MEDS: PIPERACILLIN/TAZOB 3.375 GM 3.375 GM in DEXTROSE 5%-WATER - 50 ML IVPB SCH ×2 (03:45→10:16)
[2021-09-22] MEDS: INSULIN SLIDING SCALE (NOVOLOG) 1 VIAL SQ SCH ×7 (04:04→21:38)
[2021-09-22] MEDS: METOPROLOL TARTRATE 5 MG/5 ML VIAL IVPUSH PRN ×2 (05:56→10:16)
[2021-09-22] MEDS: POTASSIUM CHLORIDE 10 MEQ in SODIUM CHLORIDE 0.45% 1,000 ML IVPB SCH (06:00)
[2021-09-22 08:09] LABS: BASO % 0.1 % (0-2.0); HEMATOCRIT 47.3 % (35.4-49); HEMOGLOBIN 15.6 GM/dL (11.7-16.9); LYMPH % 2.8 % (8-40); MCH 30.7 pg (25.7-33.7); MEAN CELL VOLUME 93.1 fl (80-96); MEAN PLT VOLUME 8.3 fl (7.5-11.1); MONO % 6.3 % (3.8-10.2); NEUT % 90.8 % (42.8-82.8); PLATELET COUNT 249 10^3/uL (134-434); RBC 5.08 M/mm3 (4.00-5.60); RDW 13.3 % (11.9-15.9); WHITE BLOOD COUNT 15.6 K/mm3 (4.0-10.0)
[2021-09-22 08:28] LABS: BLOOD UREA NITROGEN 46.4 mg/dL (7-18); CALCIUM 8.6 mg/dL (8.5-10.1); CREATININE 1.6 mg/dL (0.55-1.3)
[2021-09-22 08:29] LABS: TOT PROT 5.9 g/dl (6.4-8.2)
[2021-09-22 08:31] LABS: BILIRUBIN,TOTAL 0.6 mg/dL (0.2-1)
[2021-09-22 08:37] LABS: ALBUMIN 2.2 g/dl (3.4-5.0)
[2021-09-22] MEDS ORDERED: POTASSIUM CHLORIDE 10 MEQ in SODIUM CHLORIDE 0.45% 1,000 ML IVPB SCH ×2 (09:17→19:17)
[2021-09-22] MEDS ORDERED: ACETAMINOPHEN 1000 MG/100 ML BAG IVPB PRN ×2 (09:17→18:00)
[2021-09-22] MEDS ORDERED: DEXTROSE 5%-WATER - 50 ML IVPB ONE (10:09)
[2021-09-22] MEDS ORDERED: VANCOMYCIN 1 GM/200 ML PREMIX BAG IVPB ONE ×2 (11:00→15:30)
[2021-09-22] MEDS ORDERED: AMPICILLIN SODIUM 2 GM VIAL ONE ×2 (15:14→20:36)
[2021-09-22] MEDS ORDERED: SODIUM CHLORIDE 100 ML IVPB ONE ×2 (15:14→20:36)
[2021-09-22] MEDS: AMPICILLIN - 2 GM in SODIUM CHLORIDE 100 ML IVPB SCH ×2 (15:17→20:56)
[2021-09-22] MEDS: DEXTROSE 5% IVPB SCH (17:54)
[2021-09-22] MEDS: ACYCLOVIR IVPB SCH (17:54)
[2021-09-22] MEDS: WATER IVPB SCH (17:54)
[2021-09-22] MEDS ORDERED: SODIUM CHLORIDE 1,000 ML IV SCH ×2 (18:00)
[2021-09-22 20:14] LABS: CHLORIDE 118 mmol/L (98-107); SODIUM 150 mmol/L (136-145)
[2021-09-22 20:17] LABS: ALBUMIN 1.8 g/dl (3.4-5.0); ANION GAP 7 MMOL/L (8-16); BLOOD UREA NITROGEN 45.7 mg/dL (7-18); CO2 25 mmol/L (21-32); GLUCOSE,RANDOM 295 mg/dL (74-106)
[2021-09-22 20:21] LABS: CREATININE 1.6 mg/dL (0.55-1.3); PHOSPHOROUS 1.8 mg/dL (2.5-4.9); SGOT/AST 144 U/L (15-37)
[2021-09-22 20:22] LABS: BILIRUBIN,TOTAL 0.7 mg/dL (0.2-1); TOT PROT 5.1 g/dl (6.4-8.2)
[2021-09-22 20:24] LABS: ALK PHOS 102 U/L (45-117)
[2021-09-22 20:29] LABS: SGPT/ALT 125 U/L (13-61)
[2021-09-22] MEDS ORDERED: DEXTROSE 5%-WATER 100 ML IVPB ONE (20:37)
[2021-09-22] MEDS: CEFTRIAXONE 2 GM in DEXTROSE 5%-WATER 2 GM/100 ML BAG IVPB SCH (21:10)
[2021-09-22] MEDS: CHLORHEXIDINE GLUCONATE 4% CLEANSER FOR DECOLONIZATION TP SCH (21:12)
[2021-09-22] MEDS: HEPARIN NA (PORCINE) 5,000 UNITS/ML 1ML VIAL SQ SCH (21:12)
[2021-09-22] MEDS: ATORVASTATIN CA 40 MG TABLET (FP) PO SCH (21:16)
[2021-09-22] MEDS: MUPIROCIN 2% TOPICAL OINTMENT FOR DECOLONIZATION NS SCH (21:17)
[2021-09-22 22:12] LABS: EPI CELLS 13 /uL (0-25.1); HYALINE CASTS 10 /uL (0-3.1); URINE APPEARANCE Cloudy; URINE BACTERIA 3 /uL (0-1359); URINE BILIRUBIN Negative (NEGATIVE); URINE COLOR Yellow; URINE GLUCOSE (UA) 250 (NEGATIVE); URINE KETONE Trace (NEGATIVE); URINE LEUK ESTERASE Negative (NEGATIVE); URINE NITRITE Negative (NEGATIVE); URINE PROTEIN 100 (NEGATIVE); URINE RBC 67 /uL (0-23.9); URINE UROBILINOGEN 0.2 mg/dL (0.2-1.0); URINE WBC 18 /uL (0-25.8)
[2021-09-22] MEDS: SODIUM CHLORIDE 0.45% 1,000 ML IV SCH (22:22)
[2021-09-22 22:40] LABS: URINE CRYSTALS FEW /hpf
[2021-09-23] MEDS: WATER IVPB SCH ×3 (01:01→17:31)
[2021-09-23] MEDS: ACYCLOVIR IVPB SCH ×3 (01:01→17:31)
[2021-09-23] MEDS: DEXTROSE 5% IVPB SCH ×3 (01:01→17:31)
[2021-09-23] MEDS ORDERED: AMPICILLIN SODIUM 2 GM VIAL ONE ×4 (01:11→20:05)
[2021-09-23] MEDS ORDERED: SODIUM CHLORIDE 100 ML IVPB ONE ×4 (01:12→20:05)
[2021-09-23] MEDS: AMPICILLIN - 2 GM in SODIUM CHLORIDE 100 ML IVPB SCH ×4 (02:07→20:30)
[2021-09-23] MEDS: INSULIN SLIDING SCALE (NOVOLOG) 1 VIAL SQ SCH ×6 (02:07→22:09)
[2021-09-23] MEDS: VANCOMYCIN/WATER FOR INJ (PEG) 1,000 MG/200 ML BAG IVPB SCH ×2 (03:02→15:08)
[2021-09-23] MEDS ORDERED: POTASSIUM PHOSPHATE 30 MM in DEXTROSE 5%-WATER - 250 ML IVPB ONE (05:30)
[2021-09-23] MEDS: HEPARIN NA (PORCINE) 5,000 UNITS/ML 1ML VIAL SQ SCH ×2 (05:32→13:51)
[2021-09-23 07:37] LABS: HEMATOCRIT 47.7 % (35.4-49); HEMOGLOBIN 15.8 GM/dL (11.7-16.9); MCH 30.8 pg (25.7-33.7); MEAN CELL VOLUME 93.2 fl (80-96); MEAN PLT VOLUME 8.6 fl (7.5-11.1); PLATELET COUNT 209 10^3/uL (134-434); RBC 5.12 M/mm3 (4.00-5.60); RDW 13.7 % (11.9-15.9); WHITE BLOOD COUNT 9.9 K/mm3 (4.0-10.0)
[2021-09-23 07:55] LABS: CALCIUM 8.3 mg/dL (8.5-10.1)
[2021-09-23 07:57] LABS: ALBUMIN 1.9 g/dl (3.4-5.0); MAGNESIUM 2.2 mg/dL (1.8-2.4)
[2021-09-23 08:00] LABS: CREATININE 1.4 mg/dL (0.55-1.3); PHOSPHOROUS 2.3 mg/dL (2.5-4.9)
[2021-09-23 08:01] LABS: BILIRUBIN,TOTAL 0.6 mg/dL (0.2-1); TOT PROT 5.3 g/dl (6.4-8.2)
[2021-09-23] MEDS ORDERED: MIDAZOLAM HCL 2 MG/2 ML SINGLE DOSE VIAL IVPUSH STA (08:54)
[2021-09-23] MEDS: TAMSULOSIN HCL 0.4 MG CAP PO SCH (09:00)
[2021-09-23] MEDS ORDERED: DEXTROSE 5%-WATER 100 ML IVPB ONE ×2 (09:24→22:02)
[2021-09-23] MEDS: CEFTRIAXONE 2 GM in DEXTROSE 5%-WATER 2 GM/100 ML BAG IVPB SCH ×2 (09:42→22:09)
[2021-09-23] MEDS ORDERED: LIDOCAINE HCL 1%, 10 MG/ML (20ML VIAL) ONE (09:57)
[2021-09-23] MEDS: MUPIROCIN 2% TOPICAL OINTMENT FOR DECOLONIZATION NS SCH ×2 (11:03→22:01)
[2021-09-23 14:52] LABS: BF GLUCOSE (CSF ONLY) 147 mg/dL (40-70)
[2021-09-23 14:56] LABS: CSF APPEARANCE CLEAR (CLEAR); CSF COLOR COLORLESS (COLORLESS); CSF WBC 0 mm3 (0-5)
[2021-09-23] MEDS: SODIUM CHLORIDE 0.45% 1,000 ML IV SCH (15:07)
[2021-09-23] MEDS ORDERED: HEPARIN NA (PORCINE) 5,000 UNITS/ML 1ML VIAL IVPUSH PRN ×2 (19:43)
[2021-09-23] MEDS ORDERED: HEPARIN SOD,PORK IN 0.45% NACL 25,000 UNITS/500 ML INFUS.BAG IVPB SCH (19:45)
[2021-09-23] MEDS: CHLORHEXIDINE GLUCONATE 4% CLEANSER FOR DECOLONIZATION TP SCH (22:01)
[2021-09-23] MEDS: ATORVASTATIN CA 40 MG TABLET (FP) PO SCH (22:01)
[2021-09-24] MEDS: DEXTROSE 5% IVPB SCH ×2 (01:03→09:03)
[2021-09-24] MEDS: ACYCLOVIR IVPB SCH ×2 (01:03→09:03)
[2021-09-24] MEDS: WATER IVPB SCH ×2 (01:03→09:03)
[2021-09-24] MEDS ORDERED: AMPICILLIN SODIUM 2 GM VIAL ONE ×2 (01:45→08:53)
[2021-09-24] MEDS ORDERED: SODIUM CHLORIDE 100 ML IVPB ONE ×2 (01:45→08:53)
[2021-09-24] MEDS: INSULIN SLIDING SCALE (NOVOLOG) 1 VIAL SQ SCH ×5 (01:53→21:36)
[2021-09-24] MEDS: AMPICILLIN - 2 GM in SODIUM CHLORIDE 100 ML IVPB SCH ×2 (02:03→09:03)
[2021-09-24] MEDS: VANCOMYCIN/WATER FOR INJ (PEG) 1,000 MG/200 ML BAG IVPB SCH (03:06)
[2021-09-24] MEDS: HEPARIN NA (PORCINE) 5,000 UNITS/ML 1ML VIAL SQ SCH ×3 (05:19→21:35)
[2021-09-24 07:25] LABS: HEMATOCRIT 42.8 % (35.4-49); HEMOGLOBIN 14.3 GM/dL (11.7-16.9); MCH 30.7 pg (25.7-33.7); MCHC 33.3 g/dl (32.0-35.9); MEAN CELL VOLUME 92.1 fl (80-96); MEAN PLT VOLUME 8.3 fl (7.5-11.1); PLATELET COUNT 218 10^3/uL (134-434); RBC 4.65 M/mm3 (4.00-5.60); RDW 13.4 % (11.9-15.9); WHITE BLOOD COUNT 12.8 K/mm3 (4.0-10.0)
[2021-09-24 08:15] LABS: BLOOD UREA NITROGEN 31.9 mg/dL (7-18); CALCIUM 7.7 mg/dL (8.5-10.1); CREATININE 1.2 mg/dL (0.55-1.3); MAGNESIUM 2.1 mg/dL (1.8-2.4); PHOSPHOROUS 2.5 mg/dL (2.5-4.9)
[2021-09-24] MEDS ORDERED: POTASSIUM CHLORIDE TABS 20 MEQ TABLET.ER (FP) PO ONE (08:47)
[2021-09-24] MEDS ORDERED: DEXTROSE 5%-WATER 100 ML IVPB ONE (08:54)
[2021-09-24] MEDS: TAMSULOSIN HCL 0.4 MG CAP PO SCH (09:02)
[2021-09-24] MEDS: CEFTRIAXONE 2 GM in DEXTROSE 5%-WATER 2 GM/100 ML BAG IVPB SCH (09:03)
[2021-09-24] MEDS: MUPIROCIN 2% TOPICAL OINTMENT FOR DECOLONIZATION NS SCH ×2 (10:18→21:31)
[2021-09-24] MEDS ORDERED: D5-1/2NS+20 MEQ KCL - 20 MEQ/1,000 ML INFUS.BAG IV SCH (11:30)
[2021-09-24 11:54] LABS: ALBUMIN 1.7 g/dl (3.4-5.0)
[2021-09-24 11:57] LABS: BILIRUBIN,DIRECT 0.2 mg/dL (0.0-0.2)
[2021-09-24 11:59] LABS: BILIRUBIN,TOTAL 0.4 mg/dL (0.2-1); TOT PROT 5.1 g/dl (6.4-8.2)
[2021-09-24] MEDS: POTASSIUM CHLORIDE 20 MEQ in DEXTROSE 5%-WATER - 1,000 ML IV SCH (18:14)
[2021-09-24] MEDS: ATORVASTATIN CA 40 MG TABLET (FP) PO SCH (21:30)
[2021-09-24] MEDS: CHLORHEXIDINE GLUCONATE 4% CLEANSER FOR DECOLONIZATION TP SCH (21:31)
[2021-09-25] MEDS: INSULIN SLIDING SCALE (NOVOLOG) 1 VIAL SQ SCH ×5 (05:18→17:31)
[2021-09-25] MEDS ORDERED: ACETAMINOPHEN 1000 MG/100 ML BAG IVPB ONE ×2 (06:07→14:30)
[2021-09-25] MEDS: POTASSIUM CHLORIDE 20 MEQ in DEXTROSE 5%-WATER - 1,000 ML IV SCH ×2 (06:14→11:14)
[2021-09-25] MEDS: HEPARIN NA (PORCINE) 5,000 UNITS/ML 1ML VIAL SQ SCH ×3 (06:30→21:18)
[2021-09-25] MEDS: TAMSULOSIN HCL 0.4 MG CAP PO SCH (09:00)
[2021-09-25] MEDS ORDERED: DEXTROSE 5%-WATER 100 ML IVPB ONE (10:04)
[2021-09-25] MEDS: CEFTRIAXONE 2 GM in DEXTROSE 5%-WATER 2 GM/100 ML BAG IVPB SCH (10:48)
[2021-09-25] MEDS: MUPIROCIN 2% TOPICAL OINTMENT FOR DECOLONIZATION NS SCH ×2 (10:49→21:17)
[2021-09-25] MEDS ORDERED: INSULIN SLIDING SCALE (NOVOLOG) 1 VIAL SQ SCH (11:30)
[2021-09-25] MEDS: D5-1/2NS+10 MEQ KCL - 10 MEQ/1,000 ML INFUS.BAG IV SCH (15:00)
[2021-09-25 16:11] LABS: CHLORIDE 114 mmol/L (98-107); SODIUM 149 mmol/L (136-145)
[2021-09-25 16:12] LABS: CALCIUM 7.5 mg/dL (8.5-10.1)
[2021-09-25 16:13] LABS: ALBUMIN 1.5 g/dl (3.4-5.0); BLOOD UREA NITROGEN 22.8 mg/dL (7-18); CO2 28 mmol/L (21-32); GLUCOSE,RANDOM 246 mg/dL (74-106)
[2021-09-25 16:16] LABS: CREATININE 1.1 mg/dL (0.55-1.3); SGOT/AST 113 U/L (15-37); SGPT/ALT 88 U/L (13-61)
[2021-09-25 16:18] LABS: BILIRUBIN,TOTAL 0.3 mg/dL (0.2-1)
[2021-09-25 16:19] LABS: ALK PHOS 192 U/L (45-117)
[2021-09-25 16:28] LABS: ANION GAP 7 MMOL/L (8-16)
[2021-09-25] MEDS ORDERED: POTASSIUM CHLORIDE TABS 20 MEQ TABLET.ER (FP) PO ONE (16:34)
[2021-09-25 17:05] LABS: MAGNESIUM 2.2 mg/dL (1.8-2.4)
[2021-09-25] MEDS: KCL 10 MEQ IVPB 10 MEQ/100 ML INFUS.BAG IVPB SCH ×3 (17:25→19:00)
[2021-09-25] MEDS: CHLORHEXIDINE GLUCONATE 4% CLEANSER FOR DECOLONIZATION TP SCH (21:18)
[2021-09-25] MEDS: ATORVASTATIN CA 40 MG TABLET (FP) PO SCH (21:18)
[2021-09-26] MEDS ORDERED: ACETAMINOPHEN 1000 MG/100 ML BAG IVPB ONE ×2 (01:05→15:45)
[2021-09-26] MEDS ORDERED: ENALAPRILAT DIHYDRATE 1.25 MG/1 ML VIAL IVPB ONE (01:35)
[2021-09-26] MEDS: HEPARIN NA (PORCINE) 5,000 UNITS/ML 1ML VIAL SQ SCH ×3 (05:12→22:08)
[2021-09-26] MEDS: INSULIN SLIDING SCALE (NOVOLOG) 1 VIAL SQ SCH ×4 (06:08→16:57)
[2021-09-26] MEDS: D5-1/2NS+10 MEQ KCL - 10 MEQ/1,000 ML INFUS.BAG IV SCH ×3 (06:42→22:02)
[2021-09-26 06:44] LABS: HEMATOCRIT 45.4 % (35.4-49); HEMOGLOBIN 14.6 GM/dL (11.7-16.9); MCH 29.6 pg (25.7-33.7); MEAN CELL VOLUME 92.4 fl (80-96); MEAN PLT VOLUME 8.4 fl (7.5-11.1); PLATELET COUNT 254 10^3/uL (134-434); RBC 4.92 M/mm3 (4.00-5.60); RDW 13.7 % (11.9-15.9); WHITE BLOOD COUNT 13.6 K/mm3 (4.0-10.0)
[2021-09-26 07:05] LABS: CALCIUM 7.9 mg/dL (8.5-10.1)
[2021-09-26 07:06] LABS: ALBUMIN 1.4 g/dl (3.4-5.0); BLOOD UREA NITROGEN 21.9 mg/dL (7-18); MAGNESIUM 2.2 mg/dL (1.8-2.4)
[2021-09-26 07:09] LABS: CREATININE 1.1 mg/dL (0.55-1.3); PHOSPHOROUS 2.6 mg/dL (2.5-4.9)
[2021-09-26 07:10] LABS: BILIRUBIN,TOTAL 0.6 mg/dL (0.2-1)
[2021-09-26 07:11] LABS: TOT PROT 5.4 g/dl (6.4-8.2)
[2021-09-26] MEDS ORDERED: DEXTROSE 5%-WATER 100 ML IVPB ONE (10:37)
[2021-09-26] MEDS: MUPIROCIN 2% TOPICAL OINTMENT FOR DECOLONIZATION NS SCH ×2 (10:51→22:30)
[2021-09-26] MEDS: TAMSULOSIN HCL 0.4 MG CAP PO SCH (10:51)
[2021-09-26] MEDS: CEFTRIAXONE 2 GM in DEXTROSE 5%-WATER 2 GM/100 ML BAG IVPB SCH (10:51)
[2021-09-26] MEDS: AZITHROMYCIN IVPB 500 MG/250 ML BAG IVPB SCH (10:52)
[2021-09-26] MEDS: POTASSIUM CHLORIDE 10 MEQ in SODIUM CHLORIDE 0.45% 1,000 ML IVPB SCH (13:09)
[2021-09-26] MEDS: SODIUM CHLORIDE 0.45% 1,000 ML IV SCH (13:09)
[2021-09-26 16:08] LABS: WEST NILE VIRUS AB SERUM,IGM Negative (Negative)
[2021-09-26] MEDS: ATORVASTATIN CA 40 MG TABLET (FP) PO SCH (22:07)
[2021-09-26] MEDS: CHLORHEXIDINE GLUCONATE 4% CLEANSER FOR DECOLONIZATION TP SCH (22:30)
[2021-09-27] MEDS: HEPARIN NA (PORCINE) 5,000 UNITS/ML 1ML VIAL SQ SCH ×3 (06:50→21:34)
[2021-09-27] MEDS: INSULIN SLIDING SCALE (NOVOLOG) 1 VIAL SQ SCH ×3 (07:07→17:19)
[2021-09-27 09:47] LABS: CALCIUM 7.8 mg/dL (8.5-10.1); HEMATOCRIT 40.1 % (35.4-49); MCH 29.8 pg (25.7-33.7); MCHC 32.5 g/dl (32.0-35.9); MEAN CELL VOLUME 91.6 fl (80-96); MEAN PLT VOLUME 8.6 fl (7.5-11.1); PLATELET COUNT 324 10^3/uL (134-434); RBC 4.37 M/mm3 (4.00-5.60)
[2021-09-27 09:48] LABS: ALBUMIN 1.5 g/dl (3.4-5.0); BLOOD UREA NITROGEN 21.6 mg/dL (7-18)
[2021-09-27 09:50] LABS: CREATININE 1.2 mg/dL (0.55-1.3)
[2021-09-27 09:52] LABS: BILIRUBIN,TOTAL 0.4 mg/dL (0.2-1); TOT PROT 5.3 g/dl (6.4-8.2)
[2021-09-27] MEDS ORDERED: CEFTRIAXONE 2 GM in DEXTROSE 5%-WATER 2 GM/100 ML BAG IVPB SCH (10:00)
[2021-09-27] MEDS: D5-1/2NS+10 MEQ KCL - 10 MEQ/1,000 ML INFUS.BAG IV SCH (11:27)
[2021-09-27] MEDS ORDERED: DEXTROSE 5%-WATER 100 ML IVPB ONE (11:59)
[2021-09-27] MEDS: AZITHROMYCIN IVPB 500 MG/250 ML BAG IVPB SCH (12:19)
[2021-09-27] MEDS: D5-1/4NS+20 MEQ KCL - 20 MEQ/1,000 ML INFUS.BAG IV SCH (13:20)
[2021-09-27] MEDS: TAMSULOSIN HCL 0.4 MG CAP PO SCH (13:40)
[2021-09-27] MEDS ORDERED: AMINO ACIDS 4.25%/D5W 1,000 ML IV SCH (14:45)
[2021-09-27] MEDS: ACETAMINOPHEN 1000 MG/100 ML BAG IVPB PRN (15:13)
[2021-09-27] MEDS: KCL 10 MEQ IVPB 10 MEQ/100 ML INFUS.BAG IVPB SCH ×3 (15:15→19:23)
[2021-09-27] MEDS ORDERED: PIPERACILLIN/TAZOBACTAM 3.375 GM VIAL IVPB ONE (18:45)
[2021-09-27] MEDS ORDERED: DEXTROSE 5%-WATER - 50 ML IVPB ONE (18:45)
[2021-09-27] MEDS: PIPERACILLIN/TAZOB 3.375 GM 3.375 GM in DEXTROSE 5%-WATER - 50 ML IVPB SCH (18:50)
[2021-09-28] MEDS ORDERED: DEXTROSE 5%-WATER - 50 ML IVPB ONE ×3 (01:36→18:15)
[2021-09-28] MEDS ORDERED: PIPERACILLIN/TAZOBACTAM 3.375 GM VIAL IVPB ONE ×3 (01:36→18:15)
[2021-09-28] MEDS: PIPERACILLIN/TAZOB 3.375 GM 3.375 GM in DEXTROSE 5%-WATER - 50 ML IVPB SCH ×3 (02:05→18:17)
[2021-09-28] MEDS: HEPARIN NA (PORCINE) 5,000 UNITS/ML 1ML VIAL SQ SCH ×3 (06:09→21:47)
[2021-09-28] MEDS: INSULIN SLIDING SCALE (NOVOLOG) 1 VIAL SQ SCH ×3 (06:10→17:23)
[2021-09-28] MEDS: ACETAMINOPHEN 1000 MG/100 ML BAG IVPB PRN (09:42)
[2021-09-28] MEDS: AZITHROMYCIN IVPB 500 MG/250 ML BAG IVPB SCH (09:51)
[2021-09-28 10:42] LABS: BASO % 0.1 % (0-2.0); EOS % 0.2 % (0-4.5); HEMATOCRIT 36.1 % (35.4-49); HEMOGLOBIN 11.9 GM/dL (11.7-16.9); MCH 29.9 pg (25.7-33.7); MCHC 32.9 g/dl (32.0-35.9); MEAN CELL VOLUME 90.8 fl (80-96); MEAN PLT VOLUME 8.5 fl (7.5-11.1); MONO % 5.2 % (3.8-10.2); NEUT % 90.5 % (42.8-82.8); PLATELET COUNT 389 10^3/uL (134-434); RBC 3.97 M/mm3 (4.00-5.60); RDW 13.8 % (11.9-15.9); WHITE BLOOD COUNT 13.4 K/mm3 (4.0-10.0)
[2021-09-28 11:04] LABS: CALCIUM 7.9 mg/dL (8.5-10.1)
[2021-09-28 11:05] LABS: ALBUMIN 1.5 g/dl (3.4-5.0); BLOOD UREA NITROGEN 24.3 mg/dL (7-18); MAGNESIUM 2.2 mg/dL (1.8-2.4)
[2021-09-28 11:08] LABS: CREATININE 1.2 mg/dL (0.55-1.3)
[2021-09-28 11:09] LABS: BILIRUBIN,TOTAL 0.6 mg/dL (0.2-1)
[2021-09-28 11:10] LABS: TOT PROT 5.2 g/dl (6.4-8.2)
[2021-09-28] MEDS: TAMSULOSIN HCL 0.4 MG CAP PO SCH (12:03)
[2021-09-28] MEDS: D5-1/4NS+20 MEQ KCL - 20 MEQ/1,000 ML INFUS.BAG IV SCH (15:16)
[2021-09-28] MEDS: POTASSIUM CHLORIDE 20 MEQ in AMINO ACIDS 4.25%/D5W 1,000 ML IV SCH (17:26)
[2021-09-29] MEDS ORDERED: DEXTROSE 5%-WATER - 50 ML IVPB ONE ×3 (01:40→17:46)
[2021-09-29] MEDS ORDERED: PIPERACILLIN/TAZOBACTAM 3.375 GM VIAL IVPB ONE ×3 (01:40→17:46)
[2021-09-29] MEDS: PIPERACILLIN/TAZOB 3.375 GM 3.375 GM in DEXTROSE 5%-WATER - 50 ML IVPB SCH ×3 (01:41→19:09)
[2021-09-29] MEDS: POTASSIUM CHLORIDE 20 MEQ in AMINO ACIDS 4.25%/D5W 1,000 ML IV SCH ×2 (02:08→06:26)
[2021-09-29] MEDS: HEPARIN NA (PORCINE) 5,000 UNITS/ML 1ML VIAL SQ SCH ×3 (05:56→21:15)
[2021-09-29] MEDS: INSULIN SLIDING SCALE (NOVOLOG) 1 VIAL SQ SCH ×3 (06:34→17:22)
[2021-09-29 09:15] LABS: BLOOD UREA NITROGEN 28.3 mg/dL (7-18)
[2021-09-29 09:16] LABS: ALBUMIN 1.6 g/dl (3.4-5.0); CALCIUM 8.3 mg/dL (8.5-10.1); MAGNESIUM 2.2 mg/dL (1.8-2.4)
[2021-09-29 09:19] LABS: CREATININE 1.3 mg/dL (0.55-1.3); PHOSPHOROUS 1.4 mg/dL (2.5-4.9)
[2021-09-29 09:20] LABS: BILIRUBIN,TOTAL 0.4 mg/dL (0.2-1); TOT PROT 5.4 g/dl (6.4-8.2)
[2021-09-29] MEDS: TAMSULOSIN HCL 0.4 MG CAP PO SCH (09:36)
[2021-09-29] MEDS: AZITHROMYCIN IVPB 500 MG/250 ML BAG IVPB SCH (09:38)
[2021-09-29] MEDS ORDERED: POTASSIUM CHLORIDE 20 MEQ PREMIX IVPB 100 ML IVPB ONE ×3 (12:16→12:23)
[2021-09-29] MEDS ORDERED: ACETAMINOPHEN 1000 MG/100 ML BAG IVPB PRN (12:16)
[2021-09-29] MEDS ORDERED: ACETAMINOPHEN INJECTION 100 ML IVPB ONE (12:30)
[2021-09-29] MEDS ORDERED: INSULIN (LEVEMIR) 100 UNITS/ML UNITS SQ ONE (12:45)
[2021-09-29] MEDS: POTASSIUM CHLORIDE 40 MEQ in AMINO ACIDS 4.25%/D5W 1,000 ML IV SCH (13:31)
[2021-09-29] MEDS: KCL 10 MEQ IVPB 10 MEQ/100 ML INFUS.BAG IVPB SCH ×2 (13:31→14:59)
[2021-09-30] MEDS ORDERED: PIPERACILLIN/TAZOBACTAM 3.375 GM VIAL IVPB ONE ×4 (01:25→17:38)
[2021-09-30] MEDS ORDERED: DEXTROSE 5%-WATER - 50 ML IVPB ONE ×4 (01:25→17:39)
[2021-09-30] MEDS: PIPERACILLIN/TAZOB 3.375 GM 3.375 GM in DEXTROSE 5%-WATER - 50 ML IVPB SCH ×3 (01:33→17:47)
[2021-09-30] MEDS: POTASSIUM CHLORIDE 40 MEQ in AMINO ACIDS 4.25%/D5W 1,000 ML IV SCH ×2 (03:32→17:47)
[2021-09-30] MEDS: HEPARIN NA (PORCINE) 5,000 UNITS/ML 1ML VIAL SQ SCH ×3 (06:05→21:44)
[2021-09-30] MEDS: INSULIN SLIDING SCALE (NOVOLOG) 1 VIAL SQ SCH ×3 (06:05→17:46)
[2021-09-30] MEDS: TAMSULOSIN HCL 0.4 MG CAP PO SCH (10:21)
[2021-09-30] MEDS: AZITHROMYCIN IVPB 500 MG/250 ML BAG IVPB SCH (10:21)
[2021-09-30] MEDS: INSULIN (LEVEMIR) 100 UNITS/ML UNITS SQ SCH (21:44)
[2021-10-01] MEDS ORDERED: PIPERACILLIN/TAZOBACTAM 3.375 GM VIAL IVPB ONE ×3 (01:38→17:08)
[2021-10-01] MEDS ORDERED: DEXTROSE 5%-WATER - 50 ML IVPB ONE ×3 (01:38→17:08)
[2021-10-01] MEDS: POTASSIUM CHLORIDE 40 MEQ in AMINO ACIDS 4.25%/D5W 1,000 ML IV SCH ×3 (02:01→12:30)
[2021-10-01] MEDS: PIPERACILLIN/TAZOB 3.375 GM 3.375 GM in DEXTROSE 5%-WATER - 50 ML IVPB SCH ×3 (02:01→17:26)
[2021-10-01] MEDS: HEPARIN NA (PORCINE) 5,000 UNITS/ML 1ML VIAL SQ SCH ×3 (06:12→22:08)
[2021-10-01] MEDS: INSULIN SLIDING SCALE (NOVOLOG) 1 VIAL SQ SCH ×3 (06:12→16:58)
[2021-10-01] MEDS: TAMSULOSIN HCL 0.4 MG CAP PO SCH (08:19)
[2021-10-01 09:44] LABS: BASO % 0.2 % (0-2.0); EOS % 0.4 % (0-4.5); HEMATOCRIT 36.4 % (35.4-49); MCHC 33.1 g/dl (32.0-35.9); MEAN CELL VOLUME 90.8 fl (80-96); MEAN PLT VOLUME 7.9 fl (7.5-11.1); MONO % 5.7 % (3.8-10.2); NEUT % 86.7 % (42.8-82.8); PLATELET COUNT 584 10^3/uL (134-434); RBC 4.01 M/mm3 (4.00-5.60); RDW 13.6 % (11.9-15.9); WHITE BLOOD COUNT 9.7 K/mm3 (4.0-10.0)
[2021-10-01 10:22] LABS: CALCIUM 8.4 mg/dL (8.5-10.1)
[2021-10-01] MEDS: AZITHROMYCIN IVPB 500 MG/250 ML BAG IVPB SCH (10:22)
[2021-10-01 10:23] LABS: ALBUMIN 1.8 g/dl (3.4-5.0); MAGNESIUM 2.2 mg/dL (1.8-2.4)
[2021-10-01 10:26] LABS: CREATININE 1.1 mg/dL (0.55-1.3); PHOSPHOROUS 2.6 mg/dL (2.5-4.9)
[2021-10-01 10:27] LABS: BILIRUBIN,TOTAL 0.5 mg/dL (0.2-1)
[2021-10-01 10:28] LABS: TOT PROT 5.9 g/dl (6.4-8.2)
[2021-10-01] MEDS: INSULIN (LEVEMIR) 100 UNITS/ML UNITS SQ SCH (22:09)
[2021-10-02] MEDS: POTASSIUM CHLORIDE 40 MEQ in AMINO ACIDS 4.25%/D5W 1,000 ML IV SCH ×2 (00:33→15:17)
[2021-10-02] MEDS ORDERED: PIPERACILLIN/TAZOBACTAM 3.375 GM VIAL IVPB ONE ×3 (01:48→17:54)
[2021-10-02] MEDS ORDERED: DEXTROSE 5%-WATER - 50 ML IVPB ONE ×3 (01:49→17:54)
[2021-10-02] MEDS: PIPERACILLIN/TAZOB 3.375 GM 3.375 GM in DEXTROSE 5%-WATER - 50 ML IVPB SCH ×3 (01:50→17:56)
[2021-10-02] MEDS: INSULIN SLIDING SCALE (NOVOLOG) 1 VIAL SQ SCH ×3 (06:41→17:08)
[2021-10-02] MEDS: HEPARIN NA (PORCINE) 5,000 UNITS/ML 1ML VIAL SQ SCH ×2 (06:41→15:28)
[2021-10-02 08:39] LABS: CALCIUM 8.8 mg/dL (8.5-10.1)
[2021-10-02 08:40] LABS: BLOOD UREA NITROGEN 33.9 mg/dL (7-18); MAGNESIUM 2.2 mg/dL (1.8-2.4)
[2021-10-02 08:43] LABS: CREATININE 1.2 mg/dL (0.55-1.3)
[2021-10-02 08:44] LABS: TOT PROT 6.2 g/dl (6.4-8.2)
[2021-10-02 08:45] LABS: BILIRUBIN,TOTAL 0.5 mg/dL (0.2-1)
[2021-10-02] MEDS: TAMSULOSIN HCL 0.4 MG CAP PO SCH (09:34)
[2021-10-02] MEDS: AZITHROMYCIN IVPB 500 MG/250 ML BAG IVPB SCH (11:02)
[2021-10-02] MEDS: ENOXAPARIN NA (PORCINE) 100 MG/1 ML DISP.SYRIN SQ SCH (17:55)
[2021-10-02] MEDS: INSULIN (LEVEMIR) 100 UNITS/ML UNITS SQ SCH (22:38)
[2021-10-03] MEDS ORDERED: PIPERACILLIN/TAZOBACTAM 3.375 GM VIAL IVPB ONE ×3 (01:19→18:10)
[2021-10-03] MEDS ORDERED: DEXTROSE 5%-WATER - 50 ML IVPB ONE ×3 (01:20→18:10)
[2021-10-03] MEDS: ENOXAPARIN NA (PORCINE) 100 MG/1 ML DISP.SYRIN SQ SCH ×2 (02:28→16:30)
[2021-10-03] MEDS: PIPERACILLIN/TAZOB 3.375 GM 3.375 GM in DEXTROSE 5%-WATER - 50 ML IVPB SCH ×3 (02:28→18:17)
[2021-10-03] MEDS: POTASSIUM CHLORIDE 40 MEQ in AMINO ACIDS 4.25%/D5W 1,000 ML IV SCH ×3 (05:14→16:29)
[2021-10-03] MEDS: INSULIN SLIDING SCALE (NOVOLOG) 1 VIAL SQ SCH ×3 (06:26→16:35)
[2021-10-03] MEDS: TAMSULOSIN HCL 0.4 MG CAP PO SCH (07:42)
[2021-10-03 10:04] LABS: HEMOGLOBIN 13.1 GM/dL (11.7-16.9); MCH 30.5 pg (25.7-33.7); MCHC 33.5 g/dl (32.0-35.9); MEAN PLT VOLUME 8.2 fl (7.5-11.1); PLATELET COUNT 609 10^3/uL (134-434); RBC 4.29 M/mm3 (4.00-5.60); RDW 13.5 % (11.9-15.9); WHITE BLOOD COUNT 9.3 K/mm3 (4.0-10.0)
[2021-10-03 10:24] LABS: ALBUMIN 2.2 g/dl (3.4-5.0); BLOOD UREA NITROGEN 35.2 mg/dL (7-18); CALCIUM 8.7 mg/dL (8.5-10.1)
[2021-10-03 10:27] LABS: CREATININE 1.2 mg/dL (0.55-1.3)
[2021-10-03 10:29] LABS: BILIRUBIN,TOTAL 0.7 mg/dL (0.2-1); TOT PROT 6.6 g/dl (6.4-8.2)
[2021-10-03] MEDS: INSULIN (LEVEMIR) 100 UNITS/ML UNITS SQ SCH (21:40)
[2021-10-04] MEDS ORDERED: DEXTROSE 5%-WATER - 50 ML IVPB ONE ×3 (01:26→17:36)
[2021-10-04] MEDS ORDERED: PIPERACILLIN/TAZOBACTAM 3.375 GM VIAL IVPB ONE ×3 (01:26→17:36)
[2021-10-04] MEDS: POTASSIUM CHLORIDE 40 MEQ in AMINO ACIDS 4.25%/D5W 1,000 ML IV SCH ×3 (01:53→11:48)
[2021-10-04] MEDS: PIPERACILLIN/TAZOB 3.375 GM 3.375 GM in DEXTROSE 5%-WATER - 50 ML IVPB SCH ×3 (01:55→17:58)
[2021-10-04] MEDS: ENOXAPARIN NA (PORCINE) 100 MG/1 ML DISP.SYRIN SQ SCH ×2 (03:47→14:56)
[2021-10-04] MEDS: INSULIN SLIDING SCALE (NOVOLOG) 1 VIAL SQ SCH ×3 (06:14→16:59)
[2021-10-04] MEDS: TAMSULOSIN HCL 0.4 MG CAP PO SCH (08:18)
[2021-10-04 09:12] LABS: ALBUMIN 2.2 g/dl (3.4-5.0); CALCIUM 9.3 mg/dL (8.5-10.1)
[2021-10-04 09:13] LABS: BLOOD UREA NITROGEN 41.6 mg/dL (7-18)
[2021-10-04 09:15] LABS: CREATININE 1.3 mg/dL (0.55-1.3)
[2021-10-04 09:17] LABS: BILIRUBIN,TOTAL 0.8 mg/dL (0.2-1); TOT PROT 6.7 g/dl (6.4-8.2)
[2021-10-04] MEDS: POTASSIUM CHLORIDE 10 MEQ in AMINO ACIDS 4.25%/D5W 1,000 ML IV SCH (16:17)
[2021-10-04] MEDS: INSULIN (LEVEMIR) 100 UNITS/ML UNITS SQ SCH (22:03)
[2021-10-05] MEDS: ENOXAPARIN NA (PORCINE) 100 MG/1 ML DISP.SYRIN SQ SCH ×2 (03:40→15:47)
[2021-10-05] MEDS: POTASSIUM CHLORIDE 10 MEQ in AMINO ACIDS 4.25%/D5W 1,000 ML IV SCH ×2 (05:58→15:47)
[2021-10-05] MEDS: INSULIN SLIDING SCALE (NOVOLOG) 1 VIAL SQ SCH ×3 (05:59→16:22)
[2021-10-05] MEDS: TAMSULOSIN HCL 0.4 MG CAP PO SCH (08:27)
[2021-10-05 09:20] LABS: BASO % 0.6 % (0-2.0); EOS % 0.4 % (0-4.5); HEMATOCRIT 39.9 % (35.4-49); HEMOGLOBIN 13.1 GM/dL (11.7-16.9); LYMPH % 6.5 % (8-40); MCH 30.2 pg (25.7-33.7); MCHC 32.9 g/dl (32.0-35.9); MEAN CELL VOLUME 91.8 fl (80-96); MEAN PLT VOLUME 8.4 fl (7.5-11.1); MONO % 4.9 % (3.8-10.2); NEUT % 87.6 % (42.8-82.8); PLATELET COUNT 608 10^3/uL (134-434); RBC 4.34 M/mm3 (4.00-5.60); RDW 13.5 % (11.9-15.9); WHITE BLOOD COUNT 10.9 K/mm3 (4.0-10.0)
[2021-10-05 09:50] LABS: MAGNESIUM 2.2 mg/dL (1.8-2.4)
[2021-10-05 09:52] LABS: ALBUMIN 2.3 g/dl (3.4-5.0); CALCIUM 9.1 mg/dL (8.5-10.1); CREATININE 1.2 mg/dL (0.55-1.3)
[2021-10-05 09:54] LABS: PHOSPHOROUS 2.7 mg/dL (2.5-4.9); TOT PROT 6.9 g/dl (6.4-8.2)
[2021-10-05 09:57] LABS: BILIRUBIN,TOTAL 0.5 mg/dL (0.2-1)
[2021-10-05] MEDS ORDERED: INSULIN (NOVOLOG) ASPART 100 UNITS/ML 10ML VIAL ONE (10:59)
[2021-10-05] MEDS ORDERED: PIPERACILLIN/TAZOB 3.375 GM 3.375 GM in DEXTROSE 5%-WATER - 50 ML IVPB SCH ×2 (11:00→11:15)
[2021-10-05 11:13] LABS: BLOOD UREA NITROGEN 41.4 mg/dL (7-18)
[2021-10-05] MEDS ORDERED: PIPERACILLIN/TAZOBACTAM 3.375 GM VIAL IVPB ONE (11:32)
[2021-10-05] MEDS ORDERED: DEXTROSE 5%-WATER - 50 ML IVPB ONE (11:33)
[2021-10-05 18:31] LABS: INR 1.36 (0.83-1.09); PROTHROMBIN TIME (PATIENT) 15.7 SEC (9.7-13.0)
[2021-10-05] MEDS: INSULIN (LEVEMIR) 100 UNITS/ML UNITS SQ SCH (21:29)
[2021-10-06] MEDS: POTASSIUM CHLORIDE 10 MEQ in AMINO ACIDS 4.25%/D5W 1,000 ML IV SCH (02:25)
[2021-10-06] MEDS: ENOXAPARIN NA (PORCINE) 100 MG/1 ML DISP.SYRIN SQ SCH ×2 (02:25→15:02)
[2021-10-06] MEDS: INSULIN SLIDING SCALE (NOVOLOG) 1 VIAL SQ SCH ×3 (06:23→17:04)
[2021-10-06] MEDS: TAMSULOSIN HCL 0.4 MG CAP PO SCH (09:39)
[2021-10-06 11:08] LABS: BASO % 0.5 % (0-2.0); EOS % 0.4 % (0-4.5); HEMATOCRIT 40.4 % (35.4-49); HEMOGLOBIN 13.4 GM/dL (11.7-16.9); MCH 30.5 pg (25.7-33.7); MCHC 33.2 g/dl (32.0-35.9); MEAN PLT VOLUME 8.6 fl (7.5-11.1); MONO % 6.8 % (3.8-10.2); NEUT % 84.3 % (42.8-82.8); PLATELET COUNT 567 10^3/uL (134-434); RBC 4.39 M/mm3 (4.00-5.60); RDW 13.6 % (11.9-15.9); WHITE BLOOD COUNT 9.5 K/mm3 (4.0-10.0)
[2021-10-06] MEDS ORDERED: MEROPENEM 1 GM VIAL (RESTRICTED TO ID) IVPB ONE (11:22)
[2021-10-06] MEDS ORDERED: DEXTROSE 5%-WATER 100 ML IVPB ONE (11:23)
[2021-10-06 11:39] LABS: ALBUMIN 2.4 g/dl (3.4-5.0); BLOOD UREA NITROGEN 46.4 mg/dL (7-18); CALCIUM 9.4 mg/dL (8.5-10.1)
[2021-10-06 11:42] LABS: CREATININE 1.2 mg/dL (0.55-1.3)
[2021-10-06 11:44] LABS: BILIRUBIN,TOTAL 0.6 mg/dL (0.2-1); TOT PROT 7.1 g/dl (6.4-8.2)
[2021-10-06] MEDS: MEROPENEM 1 GM in DEXTROSE 5%-WATER 100 ML IVPB SCH ×2 (11:51→18:19)
[2021-10-06] MEDS: AMINO ACIDS 4.25%/D5W 1,000 ML IV SCH (16:02)
[2021-10-06] MEDS: INSULIN (LEVEMIR) 100 UNITS/ML UNITS SQ SCH (22:13)
[2021-10-07] MEDS ORDERED: MEROPENEM 1 GM VIAL (RESTRICTED TO ID) IVPB ONE ×3 (02:03→17:14)
[2021-10-07] MEDS ORDERED: DEXTROSE 5%-WATER 100 ML IVPB ONE ×3 (02:03→17:15)
[2021-10-07] MEDS: MEROPENEM 1 GM in DEXTROSE 5%-WATER 100 ML IVPB SCH ×3 (02:13→17:19)
[2021-10-07] MEDS: ENOXAPARIN NA (PORCINE) 100 MG/1 ML DISP.SYRIN SQ SCH ×2 (04:12→15:40)
[2021-10-07] MEDS: INSULIN SLIDING SCALE (NOVOLOG) 1 VIAL SQ SCH ×3 (06:28→17:19)
[2021-10-07] MEDS: AMINO ACIDS 4.25%/D5W 1,000 ML IV SCH ×3 (07:43→20:00)
[2021-10-07] MEDS: TAMSULOSIN HCL 0.4 MG CAP PO SCH (08:03)
[2021-10-07 09:42] LABS: BASO % 0.5 % (0-2.0); EOS % 0.2 % (0-4.5); HEMATOCRIT 40.8 % (35.4-49); HEMOGLOBIN 13.7 GM/dL (11.7-16.9); LYMPH % 5.8 % (8-40); MCHC 33.6 g/dl (32.0-35.9); MEAN CELL VOLUME 92.2 fl (80-96); MEAN PLT VOLUME 8.5 fl (7.5-11.1); MONO % 5.9 % (3.8-10.2); NEUT % 87.6 % (42.8-82.8); PLATELET COUNT 519 10^3/uL (134-434); RBC 4.43 M/mm3 (4.00-5.60); RDW 13.6 % (11.9-15.9); WHITE BLOOD COUNT 9.7 K/mm3 (4.0-10.0)
[2021-10-07 09:56] LABS: INR 1.37 (0.83-1.09); PROTHROMBIN TIME (PATIENT) 15.8 SEC (9.7-13.0)
[2021-10-07 10:09] LABS: CHLORIDE 104 mmol/L (98-107); SODIUM 135 mmol/L (136-145)
[2021-10-07 10:17] LABS: ALBUMIN 2.5 g/dl (3.4-5.0); ANION GAP 9 MMOL/L (8-16); BLOOD UREA NITROGEN 49.7 mg/dL (7-18); CALCIUM 9.7 mg/dL (8.5-10.1); CO2 22 mmol/L (21-32); MAGNESIUM 2.2 mg/dL (1.8-2.4)
[2021-10-07 10:20] LABS: PHOSPHOROUS 3.4 mg/dL (2.5-4.9); SGOT/AST 637 U/L (15-37)
[2021-10-07 10:21] LABS: CREATININE 1.4 mg/dL (0.55-1.3)
[2021-10-07 10:22] LABS: BILIRUBIN,TOTAL 0.6 mg/dL (0.2-1); TOT PROT 7.3 g/dl (6.4-8.2)
[2021-10-07 10:23] LABS: ALK PHOS 269 U/L (45-117)
[2021-10-07 10:31] LABS: GLUCOSE,RANDOM 458 mg/dL (74-106); SGPT/ALT 1070 U/L (13-61)
[2021-10-07] MEDS ORDERED: SODIUM CHLORIDE 1,000 ML IV STA (11:07)
[2021-10-07] MEDS ORDERED: INSULIN (NOVOLOG) ASPART 100 UNITS/ML 10ML VIAL ONE (11:47)
[2021-10-07] MEDS: INSULIN (LEVEMIR) 100 UNITS/ML UNITS SQ SCH (22:10)
[2021-10-08] MEDS ORDERED: MEROPENEM 1 GM VIAL (RESTRICTED TO ID) IVPB ONE ×3 (01:58→17:47)
[2021-10-08] MEDS ORDERED: DEXTROSE 5%-WATER 100 ML IVPB ONE ×3 (01:58→17:47)
[2021-10-08] MEDS: MEROPENEM 1 GM in DEXTROSE 5%-WATER 100 ML IVPB SCH ×3 (02:32→17:52)
[2021-10-08] MEDS: ENOXAPARIN NA (PORCINE) 100 MG/1 ML DISP.SYRIN SQ SCH (02:32)
[2021-10-08] MEDS: AMINO ACIDS 4.25%/D5W 1,000 ML IV SCH ×3 (05:55→16:09)
[2021-10-08] MEDS: INSULIN SLIDING SCALE (NOVOLOG) 1 VIAL SQ SCH ×3 (06:00→16:48)
[2021-10-08 08:01] LABS: BASO % 0.4 % (0-2.0); EOS % 0.7 % (0-4.5); HEMOGLOBIN 12.8 GM/dL (11.7-16.9); MCHC 33.7 g/dl (32.0-35.9); MEAN CELL VOLUME 91.9 fl (80-96); MEAN PLT VOLUME 8.8 fl (7.5-11.1); MONO % 6.8 % (3.8-10.2); NEUT % 83.1 % (42.8-82.8); PLATELET COUNT 430 10^3/uL (134-434); RBC 4.13 M/mm3 (4.00-5.60); RDW 13.6 % (11.9-15.9); WHITE BLOOD COUNT 8.3 K/mm3 (4.0-10.0)
[2021-10-08 08:21] LABS: INR 1.45 (0.83-1.09); PROTHROMBIN TIME (PATIENT) 16.7 SEC (9.7-13.0)
[2021-10-08 10:09] LABS: ALBUMIN 2.3 g/dl (3.4-5.0); BILIRUBIN,TOTAL 0.6 mg/dL (0.2-1); BLOOD UREA NITROGEN 41.5 mg/dL (7-18); CALCIUM 8.8 mg/dL (8.5-10.1); TOT PROT 6.6 g/dl (6.4-8.2)
[2021-10-08] MEDS ORDERED: INSULIN (NOVOLOG) ASPART 100 UNITS/ML 10ML VIAL ONE ×2 (13:01→16:54)
[2021-10-08] MEDS ORDERED: INSULIN (NOVOLOG MIX 70/30) 100 UNITS/ML MDV SQ ONE (16:54)
[2021-10-08] MEDS ORDERED: INSULIN (LEVEMIR) 100 UNITS/ML UNITS SQ ONE (17:32)
[2021-10-08] MEDS: INSULIN (LEVEMIR) 100 UNITS/ML UNITS SQ SCH (21:48)
[2021-10-09] MEDS ORDERED: MEROPENEM 1 GM VIAL (RESTRICTED TO ID) IVPB ONE ×3 (01:05→17:31)
[2021-10-09] MEDS ORDERED: DEXTROSE 5%-WATER 100 ML IVPB ONE ×3 (01:05→17:31)
[2021-10-09] MEDS: MEROPENEM 1 GM in DEXTROSE 5%-WATER 100 ML IVPB SCH ×3 (02:04→17:35)
[2021-10-09] MEDS: AMINO ACIDS 4.25%/D5W 1,000 ML IV SCH ×3 (02:04→20:32)
[2021-10-09] MEDS: INSULIN SLIDING SCALE (NOVOLOG) 1 VIAL SQ SCH ×3 (06:06→16:44)
[2021-10-09 10:56] LABS: INR 1.28 (0.83-1.09); PROTHROMBIN TIME (PATIENT) 14.7 SEC (9.7-13.0)
[2021-10-09 10:57] LABS: HEMATOCRIT 37.7 % (35.4-49); HEMOGLOBIN 12.6 GM/dL (11.7-16.9); MCH 30.4 pg (25.7-33.7); MCHC 33.4 g/dl (32.0-35.9); MEAN CELL VOLUME 90.9 fl (80-96); MEAN PLT VOLUME 8.7 fl (7.5-11.1); PLATELET COUNT 420 10^3/uL (134-434); RBC 4.15 M/mm3 (4.00-5.60); RDW 13.3 % (11.9-15.9); WHITE BLOOD COUNT 7.5 K/mm3 (4.0-10.0)
[2021-10-09 11:41] LABS: ALBUMIN 2.3 g/dl (3.4-5.0)
[2021-10-09 11:42] LABS: BLOOD UREA NITROGEN 40.4 mg/dL (7-18)
[2021-10-09 11:44] LABS: CREATININE 0.9 mg/dL (0.55-1.3)
[2021-10-09 11:46] LABS: BILIRUBIN,TOTAL 0.9 mg/dL (0.2-1); TOT PROT 6.8 g/dl (6.4-8.2)
[2021-10-09] MEDS ORDERED: FENTANYL CITRATE/PF 50 MCG/ML VIAL ONE ×2 (14:47→15:45)
[2021-10-09] MEDS: INSULIN (LEVEMIR) 100 UNITS/ML UNITS SQ SCH (21:19)
[2021-10-10] MEDS ORDERED: MEROPENEM 1 GM VIAL (RESTRICTED TO ID) IVPB ONE ×3 (01:07→17:56)
[2021-10-10] MEDS ORDERED: DEXTROSE 5%-WATER 100 ML IVPB ONE ×3 (01:07→17:56)
[2021-10-10] MEDS: MEROPENEM 1 GM in DEXTROSE 5%-WATER 100 ML IVPB SCH ×3 (02:02→18:26)
[2021-10-10] MEDS: AMINO ACIDS 4.25%/D5W 1,000 ML IV SCH ×3 (03:12→16:03)
[2021-10-10] MEDS: INSULIN (LEVEMIR) 100 UNITS/ML UNITS SQ SCH (06:27)
[2021-10-10] MEDS: INSULIN SLIDING SCALE (NOVOLOG) 1 VIAL SQ SCH ×3 (06:28→18:24)
[2021-10-10 11:26] LABS: BASO % 0.3 % (0-2.0); HEMATOCRIT 38.1 % (35.4-49); HEMOGLOBIN 13.1 GM/dL (11.7-16.9); LYMPH % 11.8 % (8-40); MCH 30.7 pg (25.7-33.7); MCHC 34.4 g/dl (32.0-35.9); MEAN CELL VOLUME 89.3 fl (80-96); MEAN PLT VOLUME 8.5 fl (7.5-11.1); MONO % 8.5 % (3.8-10.2); NEUT % 78.4 % (42.8-82.8); PLATELET COUNT 380 10^3/uL (134-434); RBC 4.27 M/mm3 (4.00-5.60); RDW 13.2 % (11.9-15.9); WHITE BLOOD COUNT 7.6 K/mm3 (4.0-10.0)
[2021-10-10 11:30] LABS: INR 1.21 (0.83-1.09); PROTHROMBIN TIME (PATIENT) 13.9 SEC (9.7-13.0)
[2021-10-10 11:51] LABS: ALBUMIN 2.4 g/dl (3.4-5.0); BLOOD UREA NITROGEN 37.7 mg/dL (7-18); CALCIUM 9.7 mg/dL (8.5-10.1)
[2021-10-10 11:54] LABS: BILIRUBIN,DIRECT 0.2 mg/dL (0.0-0.2); CREATININE 0.9 mg/dL (0.55-1.3)
[2021-10-10 11:56] LABS: BILIRUBIN,TOTAL 0.6 mg/dL (0.2-1); TOT PROT 6.7 g/dl (6.4-8.2)
[2021-10-10] MEDS: ENOXAPARIN NA (PORCINE) 100 MG/1 ML DISP.SYRIN SQ SCH (16:03)
[2021-10-11] MEDS ORDERED: MEROPENEM 1 GM VIAL (RESTRICTED TO ID) IVPB ONE ×3 (02:41→17:19)
[2021-10-11] MEDS ORDERED: DEXTROSE 5%-WATER 100 ML IVPB ONE ×3 (02:42→17:21)
[2021-10-11] MEDS: MEROPENEM 1 GM in DEXTROSE 5%-WATER 100 ML IVPB SCH ×3 (02:50→17:30)
[2021-10-11] MEDS: ENOXAPARIN NA (PORCINE) 100 MG/1 ML DISP.SYRIN SQ SCH ×2 (02:50→15:45)
[2021-10-11] MEDS: AMINO ACIDS 4.25%/D5W 1,000 ML IV SCH (03:47)
[2021-10-11] MEDS: INSULIN (LEVEMIR) 100 UNITS/ML UNITS SQ SCH (06:41)
[2021-10-11] MEDS: INSULIN SLIDING SCALE (NOVOLOG) 1 VIAL SQ SCH ×3 (06:41→17:12)
[2021-10-11 10:54] LABS: HEMATOCRIT 38.9 % (35.4-49); HEMOGLOBIN 13.2 GM/dL (11.7-16.9); MCH 30.5 pg (25.7-33.7); MEAN CELL VOLUME 89.7 fl (80-96); MEAN PLT VOLUME 8.1 fl (7.5-11.1); PLATELET COUNT 324 10^3/uL (134-434); RBC 4.33 M/mm3 (4.00-5.60); RDW 13.4 % (11.9-15.9); WHITE BLOOD COUNT 7.3 K/mm3 (4.0-10.0)
[2021-10-11 12:44] LABS: ALBUMIN 2.4 g/dl (3.4-5.0); BILIRUBIN,TOTAL 0.6 mg/dL (0.2-1); BLOOD UREA NITROGEN 35.1 mg/dL (7-18); CALCIUM 8.9 mg/dL (8.5-10.1); CREATININE 0.9 mg/dL (0.55-1.3); TOT PROT 6.7 g/dl (6.4-8.2)
[2021-10-12] MEDS ORDERED: MEROPENEM 1 GM VIAL (RESTRICTED TO ID) IVPB ONE ×2 (02:32→10:24)
[2021-10-12] MEDS ORDERED: DEXTROSE 5%-WATER 100 ML IVPB ONE ×2 (02:32→10:24)
[2021-10-12] MEDS: MEROPENEM 1 GM in DEXTROSE 5%-WATER 100 ML IVPB SCH ×2 (02:37→10:30)
[2021-10-12] MEDS: ENOXAPARIN NA (PORCINE) 100 MG/1 ML DISP.SYRIN SQ SCH ×2 (02:37→15:50)
[2021-10-12] MEDS: INSULIN SLIDING SCALE (NOVOLOG) 1 VIAL SQ SCH ×3 (06:03→17:37)
[2021-10-12] MEDS: INSULIN (LEVEMIR) 100 UNITS/ML UNITS SQ SCH (06:03)
[2021-10-12 09:53] LABS: ALBUMIN 2.3 g/dl (3.4-5.0); BILIRUBIN,TOTAL 0.4 mg/dL (0.2-1); BLOOD UREA NITROGEN 31.2 mg/dL (7-18); CREATININE 0.9 mg/dL (0.55-1.3); MAGNESIUM 2.2 mg/dL (1.8-2.4); PHOSPHOROUS 2.1 mg/dL (2.5-4.9); TOT PROT 6.6 g/dl (6.4-8.2)
[2021-10-13] MEDS: ENOXAPARIN NA (PORCINE) 100 MG/1 ML DISP.SYRIN SQ SCH ×2 (04:22→16:35)
[2021-10-13] MEDS: INSULIN SLIDING SCALE (NOVOLOG) 1 VIAL SQ SCH ×3 (06:23→16:33)
[2021-10-13] MEDS: INSULIN (LEVEMIR) 100 UNITS/ML UNITS SQ SCH (06:24)
[2021-10-14] MEDS ORDERED: AMINO ACIDS 4.25%/D5W 1,000 ML IV SCH (00:15)
[2021-10-14] MEDS: ENOXAPARIN NA (PORCINE) 100 MG/1 ML DISP.SYRIN SQ SCH (03:51)
[2021-10-14] MEDS: INSULIN SLIDING SCALE (NOVOLOG) 1 VIAL SQ SCH ×3 (06:24→16:36)
[2021-10-14] MEDS: INSULIN (LEVEMIR) 100 UNITS/ML UNITS SQ SCH (06:24)
[2021-10-14 09:17] LABS: HEMATOCRIT 38.5 % (35.4-49); MCH 30.7 pg (25.7-33.7); MCHC 33.8 g/dl (32.0-35.9); MEAN CELL VOLUME 90.6 fl (80-96); MEAN PLT VOLUME 8.5 fl (7.5-11.1); PLATELET COUNT 296 10^3/uL (134-434); RBC 4.25 M/mm3 (4.00-5.60); RDW 13.5 % (11.9-15.9); WHITE BLOOD COUNT 6.7 K/mm3 (4.0-10.0)
[2021-10-14 09:24] LABS: CALCIUM 8.6 mg/dL (8.5-10.1)
[2021-10-14 09:25] LABS: ALBUMIN 2.3 g/dl (3.4-5.0); BLOOD UREA NITROGEN 31.8 mg/dL (7-18); MAGNESIUM 2.4 mg/dL (1.8-2.4)
[2021-10-14 09:28] LABS: CREATININE 0.9 mg/dL (0.55-1.3)
[2021-10-14 09:30] LABS: BILIRUBIN,TOTAL 0.4 mg/dL (0.2-1); TOT PROT 6.5 g/dl (6.4-8.2)
[2021-10-14] MEDS ORDERED: INSULIN (NOVOLOG) ASPART 100 UNITS/ML 10ML VIAL ONE (10:59)
[2021-10-14] MEDS: AMINO ACIDS 4.25%/D5W 1,000 ML IV SCH ×2 (12:53→22:02)
[2021-10-15] MEDS: AMINO ACIDS 4.25%/D5W 1,000 ML IV SCH ×2 (02:40→13:51)
[2021-10-15] MEDS: INSULIN (LEVEMIR) 100 UNITS/ML UNITS SQ SCH (06:41)
[2021-10-15] MEDS: INSULIN SLIDING SCALE (NOVOLOG) 1 VIAL SQ SCH ×3 (06:42→17:03)
[2021-10-16] MEDS: AMINO ACIDS 4.25%/D5W 1,000 ML IV SCH ×3 (06:27→22:37)
[2021-10-16] MEDS: INSULIN (LEVEMIR) 100 UNITS/ML UNITS SQ SCH (07:03)
[2021-10-16] MEDS: INSULIN SLIDING SCALE (NOVOLOG) 1 VIAL SQ SCH ×3 (07:04→17:21)
[2021-10-16 10:17] LABS: HEMATOCRIT 38.3 % (35.4-49); MCH 30.5 pg (25.7-33.7); MCHC 33.9 g/dl (32.0-35.9); MEAN CELL VOLUME 89.8 fl (80-96); MEAN PLT VOLUME 7.6 fl (7.5-11.1); PLATELET COUNT 291 10^3/uL (134-434); RBC 4.27 M/mm3 (4.00-5.60); RDW 13.1 % (11.9-15.9); WHITE BLOOD COUNT 7.3 K/mm3 (4.0-10.0)
[2021-10-16 10:32] LABS: CALCIUM 8.6 mg/dL (8.5-10.1)
[2021-10-16 10:33] LABS: ALBUMIN 2.3 g/dl (3.4-5.0); BLOOD UREA NITROGEN 32.7 mg/dL (7-18)
[2021-10-16 10:36] LABS: CREATININE 0.9 mg/dL (0.55-1.3)
[2021-10-16 10:37] LABS: BILIRUBIN,TOTAL 0.4 mg/dL (0.2-1); TOT PROT 6.6 g/dl (6.4-8.2)
[2021-10-16 12:05] LABS: INR 1.19 (0.83-1.09); PROTHROMBIN TIME (PATIENT) 13.7 SEC (9.7-13.0)
[2021-10-17] MEDS ORDERED: ACETAMINOPHEN 325 MG TABLET (FP) PO PRN (02:16)
[2021-10-17] MEDS: AMINO ACIDS 4.25%/D5W 1,000 ML IV SCH ×2 (04:30→16:34)
[2021-10-17] MEDS: INSULIN (LEVEMIR) 100 UNITS/ML UNITS SQ SCH (06:33)
[2021-10-17] MEDS: INSULIN SLIDING SCALE (NOVOLOG) 1 VIAL SQ SCH ×3 (06:34→17:55)
[2021-10-17 11:09] LABS: CALCIUM 9.1 mg/dL (8.5-10.1)
[2021-10-17 11:10] LABS: ALBUMIN 2.5 g/dl (3.4-5.0); BLOOD UREA NITROGEN 30.3 mg/dL (7-18)
[2021-10-17 11:13] LABS: CREATININE 0.9 mg/dL (0.55-1.3)
[2021-10-17 11:14] LABS: BILIRUBIN,TOTAL 0.5 mg/dL (0.2-1); TOT PROT 6.9 g/dl (6.4-8.2)
[2021-10-18] MEDS: INSULIN (LEVEMIR) 100 UNITS/ML UNITS SQ SCH (06:17)
[2021-10-18] MEDS: INSULIN SLIDING SCALE (NOVOLOG) 1 VIAL SQ SCH ×3 (06:18→17:51)
[2021-10-18] MEDS: AMINO ACIDS 4.25%/D5W 1,000 ML IV SCH ×3 (07:38→22:48)
[2021-10-18] MEDS ORDERED: GLUCAGON 1 MG KIT ONE (08:37)
[2021-10-18] MEDS ORDERED: MIDAZOLAM HCL 2 MG/2 ML SINGLE DOSE VIAL ONE (10:41)
[2021-10-18] MEDS ORDERED: FENTANYL CITRATE/PF 50 MCG/ML VIAL ONE (10:42)
[2021-10-18] MEDS ORDERED: GLUCAGON 1 MG KIT IVPUSH ONE (10:45)
[2021-10-18] MEDS ORDERED: MIDAZOLAM HCL 2 MG/2 ML SINGLE DOSE VIAL IVPUSH ONE (10:46)
[2021-10-18] MEDS: ENOXAPARIN NA (PORCINE) 100 MG/1 ML DISP.SYRIN SQ SCH (15:07)
[2021-10-19] MEDS: ENOXAPARIN NA (PORCINE) 100 MG/1 ML DISP.SYRIN SQ SCH ×2 (03:45→14:28)
[2021-10-19] MEDS: INSULIN (LEVEMIR) 100 UNITS/ML UNITS SQ SCH (08:13)
[2021-10-19] MEDS: INSULIN SLIDING SCALE (NOVOLOG) 1 VIAL SQ SCH ×3 (08:13→17:33)
[2021-10-19 08:31] LABS: HEMATOCRIT 35.3 % (35.4-49); HEMOGLOBIN 12.9 GM/dL (11.7-16.9); MCH 33.9 pg (25.7-33.7); MCHC 36.4 g/dl (32.0-35.9); MEAN CELL VOLUME 93.1 fl (80-96); MEAN PLT VOLUME 8.1 fl (7.5-11.1); PLATELET COUNT 343 10^3/uL (134-434); RDW 13.4 % (11.9-15.9)
[2021-10-19 08:47] LABS: ALBUMIN 2.4 g/dl (3.4-5.0); CALCIUM 8.9 mg/dL (8.5-10.1)
[2021-10-19 08:50] LABS: CREATININE 0.9 mg/dL (0.55-1.3)
[2021-10-19 08:52] LABS: BILIRUBIN,TOTAL 0.6 mg/dL (0.2-1); TOT PROT 6.7 g/dl (6.4-8.2)
[2021-10-19] MEDS ORDERED: INSULIN (NOVOLOG) ASPART 100 UNITS/ML 10ML VIAL ONE (11:20)
[2021-10-19] MEDS: AMINO ACIDS 4.25%/D5W 1,000 ML IV SCH ×2 (11:27→14:28)
[2021-10-20] MEDS: AMINO ACIDS 4.25%/D5W 1,000 ML IV SCH ×5 (00:26→18:38)
[2021-10-20] MEDS: ENOXAPARIN NA (PORCINE) 100 MG/1 ML DISP.SYRIN SQ SCH ×2 (02:24→15:37)
[2021-10-20] MEDS: INSULIN SLIDING SCALE (NOVOLOG) 1 VIAL SQ SCH ×3 (06:23→17:02)
[2021-10-20] MEDS: INSULIN (LEVEMIR) 100 UNITS/ML UNITS SQ SCH (06:24)
[2021-10-21] MEDS: ENOXAPARIN NA (PORCINE) 100 MG/1 ML DISP.SYRIN SQ SCH (03:58)
[2021-10-21] MEDS: INSULIN SLIDING SCALE (NOVOLOG) 1 VIAL SQ SCH ×3 (07:03→18:30)
[2021-10-21] MEDS: INSULIN (LEVEMIR) 100 UNITS/ML UNITS SQ SCH (07:03)
[2021-10-21] MEDS: AMINO ACIDS 4.25%/D5W 1,000 ML IV SCH (11:04)
[2021-10-21] MEDS ORDERED: SODIUM CHLORIDE 0.45% 1,000 ML IV SCH (11:05)
[2021-10-21] MEDS ORDERED: SODIUM CHLORIDE 1,000 ML IV STA (12:41)
[2021-10-21] MEDS ORDERED: PANTOPRAZOLE SODIUM 80 MG in SODIUM CHLORIDE 100 ML IVPB SCH (12:45)
[2021-10-21 13:04] LABS: HEMATOCRIT 29.5 % (35.4-49); HEMOGLOBIN 10.1 GM/dL (11.7-16.9); MCH 30.5 pg (25.7-33.7); MCHC 34.2 g/dl (32.0-35.9); MEAN CELL VOLUME 89.1 fl (80-96); MEAN PLT VOLUME 7.8 fl (7.5-11.1); PLATELET COUNT 368 10^3/uL (134-434); RBC 3.32 M/mm3 (4.00-5.60); RDW 13.3 % (11.9-15.9); WHITE BLOOD COUNT 9.4 K/mm3 (4.0-10.0)
[2021-10-21 13:27] LABS: CALCIUM 8.4 mg/dL (8.5-10.1)
[2021-10-21 13:31] LABS: CREATININE 1.3 mg/dL (0.55-1.3)
[2021-10-21 13:33] LABS: BILIRUBIN,TOTAL 0.3 mg/dL (0.2-1); TOT PROT 5.7 g/dl (6.4-8.2)
[2021-10-21 14:00] LABS: INR 1.51 (0.83-1.09); PROTHROMBIN TIME (PATIENT) 17.4 SEC (9.7-13.0)
[2021-10-21 14:03] LABS: ACTIVATED PTT 29.7 SECONDS (25.2-36.5)
[2021-10-21 14:09] LABS: BLOOD UREA NITROGEN 72.4 mg/dL (7-18)
[2021-10-21] MEDS: PANTOPRAZOLE SODIUM 160 MG in SODIUM CHLORIDE 290 ML IVPB SCH (15:10)
[2021-10-21] MEDS ORDERED: PHYTONADIONE 10 MG/1 ML AMP IVPB ONE (15:14)
[2021-10-21] MEDS ORDERED: ERYTHROMYCIN *INJECTION* 500 MG VIAL IVPB ONE (15:22)
[2021-10-21] MEDS ORDERED: CALCIUM CHLORIDE 1 GM/10 ML *DISP.SYRIN ONE (17:15)
[2021-10-21] MEDS ORDERED: FENTANYL CITRATE/PF 50 MCG/ML VIAL ONE (17:29)
[2021-10-21] MEDS ORDERED: DEXTROSE 5%-0.45% SALINE 1,000 ML IV SCH (18:00)
[2021-10-21] MEDS ORDERED: PROPOFOL 1,000,000 MCG/100 ML VIAL ONE (18:05)
[2021-10-21] MEDS: PROPOFOL 1,000,000 MCG/100 ML VIAL IVPB SCH (18:32)
[2021-10-21] MEDS ORDERED: DEXTROSE 5%-WATER - 50 ML IVPB ONE (18:39)
[2021-10-21] MEDS ORDERED: PIPERACILLIN/TAZOBACTAM 3.375 GM VIAL IVPB ONE (18:39)
[2021-10-21] MEDS ORDERED: PHENYLEPHRINE HCL 10 MG/1 ML SINGLE DOSE VIAL ONE (18:44)
[2021-10-21] MEDS: METOCLOPRAMIDE HCL INJECTION 10 MG/2 ML VIAL IVPUSH SCH (18:54)
[2021-10-21] MEDS: FENTANYL NS IVPB 500 MCG/100 ML BAG IVPB SCH (18:54)
[2021-10-21 19:05] LABS: ARTERIAL BLD GAS O2 SATURATION 96.7 % (95-98); ARTERIAL BLOOD GAS BASE EXCESS -5.6 mmol/L (-2-2); ARTERIAL BLOOD GAS PO2 98.3 mmHg (80-100); ARTERIAL BLOOD GAS pH 7.283 (7.350-7.450)
[2021-10-21 19:06] LABS: ALLENS TEST POSITIVE
[2021-10-21 19:07] LABS: VENT MODE A/C
[2021-10-21 19:08] LABS: VENT RATE 12
[2021-10-21 19:55] LABS: BASO % 0.2 % (0-2.0); HEMATOCRIT 29.3 % (35.4-49); HEMOGLOBIN 9.9 GM/dL (11.7-16.9); LYMPH % 2.1 % (8-40); MCH 30.7 pg (25.7-33.7); MEAN CELL VOLUME 90.4 fl (80-96); MEAN PLT VOLUME 7.7 fl (7.5-11.1); NEUT % 91.7 % (42.8-82.8); PLATELET COUNT 231 10^3/uL (134-434); RBC 3.24 M/mm3 (4.00-5.60); RDW 13.4 % (11.9-15.9); WHITE BLOOD COUNT 18.6 K/mm3 (4.0-10.0)
[2021-10-21] MEDS: PIPERACILLIN/TAZOB 3.375 GM 3.375 GM in DEXTROSE 5%-WATER - 50 ML IVPB SCH (20:16)
[2021-10-21 21:15] LABS: ANISOCYTOSIS 0; MACROCYTOSIS 0
[2021-10-21 23:20] LABS: HEMATOCRIT 25.8 % (35.4-49); HEMOGLOBIN 8.9 GM/dL (11.7-16.9); MCH 30.7 pg (25.7-33.7); MCHC 34.5 g/dl (32.0-35.9); MEAN PLT VOLUME 7.8 fl (7.5-11.1); PLATELET COUNT 135 10^3/uL (134-434); RDW 13.3 % (11.9-15.9)
[2021-10-22] MEDS: PHENYLEPHRINE NS PREMIX 50,000 MCG/500 ML BAG CVP SCH ×2 (00:09→03:51)
[2021-10-22] MEDS: METOCLOPRAMIDE HCL INJECTION 10 MG/2 ML VIAL IVPUSH SCH ×4 (00:12→17:17)
[2021-10-22] MEDS ORDERED: DEXTROSE 5%-WATER - 50 ML IVPB ONE ×2 (01:38→09:04)
[2021-10-22] MEDS ORDERED: PIPERACILLIN/TAZOBACTAM 3.375 GM VIAL IVPB ONE ×2 (01:38→09:04)
[2021-10-22] MEDS: PIPERACILLIN/TAZOB 3.375 GM 3.375 GM in DEXTROSE 5%-WATER - 50 ML IVPB SCH ×2 (01:42→09:21)
[2021-10-22] MEDS: INSULIN (LEVEMIR) 100 UNITS/ML UNITS SQ SCH (06:31)
[2021-10-22] MEDS: INSULIN SLIDING SCALE (NOVOLOG) 1 VIAL SQ SCH ×3 (06:31→16:29)
[2021-10-22 07:55] LABS: BASO % 0.2 % (0-2.0); EOS % 0.6 % (0-4.5); HEMATOCRIT 25.5 % (35.4-49); HEMOGLOBIN 8.9 GM/dL (11.7-16.9); LYMPH % 6.9 % (8-40); MCH 30.8 pg (25.7-33.7); MCHC 34.9 g/dl (32.0-35.9); MEAN CELL VOLUME 88.3 fl (80-96); MEAN PLT VOLUME 7.6 fl (7.5-11.1); MONO % 5.6 % (3.8-10.2); NEUT % 86.7 % (42.8-82.8); PLATELET COUNT 215 10^3/uL (134-434); RBC 2.89 M/mm3 (4.00-5.60); RDW 13.5 % (11.9-15.9); WHITE BLOOD COUNT 16.8 K/mm3 (4.0-10.0)
[2021-10-22 08:25] LABS: INR 1.14 (0.83-1.09); PROTHROMBIN TIME (PATIENT) 13.1 SEC (9.7-13.0)
[2021-10-22 08:26] LABS: CHLORIDE 102 mmol/L (98-107); SODIUM 137 mmol/L (136-145)
[2021-10-22 08:37] LABS: ALBUMIN 2.1 g/dl (3.4-5.0); BLOOD UREA NITROGEN 48.2 mg/dL (7-18); CO2 25 mmol/L (21-32); GLUCOSE,RANDOM 256 mg/dL (74-106); MAGNESIUM 1.6 mg/dL (1.8-2.4)
[2021-10-22 08:39] LABS: SGPT/ALT 56 U/L (13-61)
[2021-10-22 08:40] LABS: CREATININE 0.9 mg/dL (0.55-1.3); PHOSPHOROUS 1.7 mg/dL (2.5-4.9); SGOT/AST 29 U/L (15-37)
[2021-10-22 08:41] LABS: BILIRUBIN,TOTAL 0.6 mg/dL (0.2-1)
[2021-10-22 09:01] LABS: ALK PHOS 94 U/L (45-117); ANION GAP 9 MMOL/L (8-16)
[2021-10-22] MEDS: PANTOPRAZOLE SODIUM 160 MG in SODIUM CHLORIDE 290 ML IVPB SCH (09:20)
[2021-10-22] MEDS ORDERED: MAGNESIUM SULF 50% (8.12 MEQ/2 ML-1 GM VIAL) IVPB ONE (09:24)
[2021-10-22] MEDS ORDERED: POTASSIUM PHOSPHATE 30 MM in SODIUM CHLORIDE 250 ML IVPB ONE (09:25)
[2021-10-22] MEDS ORDERED: POTASSIUM CHLORIDE 20 MEQ PREMIX IVPB 100 ML IVPB SCH ×2 (09:30→10:15)
[2021-10-22] MEDS ORDERED: FUROSEMIDE 40 MG/4 ML INJECTABLE VIAL IVPUSH ONE (10:31)
[2021-10-22] MEDS: PROPOFOL 1,000,000 MCG/100 ML VIAL IVPB SCH ×4 (12:00→22:08)
[2021-10-22] MEDS: DEXTROSE 5%-0.45% SALINE 1,000 ML IV SCH ×2 (12:55→22:07)
[2021-10-22] MEDS: POTASSIUM CHLORIDE 20 MEQ in AMINO ACIDS 4.25%/D5W 1,000 ML IV SCH (13:25)
[2021-10-23] MEDS: PHENYLEPHRINE NS PREMIX 50,000 MCG/500 ML BAG CVP SCH
[2021-10-23] MEDS: METOCLOPRAMIDE HCL INJECTION 10 MG/2 ML VIAL IVPUSH SCH ×4 (00:10→17:15)
[2021-10-23] MEDS: POTASSIUM CHLORIDE 20 MEQ in AMINO ACIDS 4.25%/D5W 1,000 ML IV SCH ×2 (03:00→05:00)
[2021-10-23] MEDS: PROPOFOL 1,000,000 MCG/100 ML VIAL IVPB SCH ×2 (04:00→18:55)
[2021-10-23] MEDS: PANTOPRAZOLE SODIUM 160 MG in SODIUM CHLORIDE 290 ML IVPB SCH (05:01)
[2021-10-23] MEDS: INSULIN SLIDING SCALE (NOVOLOG) 1 VIAL SQ SCH ×3 (06:09→17:14)
[2021-10-23] MEDS: INSULIN (LEVEMIR) 100 UNITS/ML UNITS SQ SCH (06:10)
[2021-10-23] MEDS: FENTANYL NS IVPB 500 MCG/100 ML BAG IVPB SCH ×2 (07:15→18:55)
[2021-10-23 07:27] LABS: BASO % 0.4 % (0-2.0); EOS % 1.6 % (0-4.5); HEMATOCRIT 24.5 % (35.4-49); HEMOGLOBIN 8.5 GM/dL (11.7-16.9); LYMPH % 9.4 % (8-40); MCH 30.7 pg (25.7-33.7); MCHC 34.6 g/dl (32.0-35.9); MEAN CELL VOLUME 88.9 fl (80-96); MEAN PLT VOLUME 7.7 fl (7.5-11.1); MONO % 6.7 % (3.8-10.2); NEUT % 81.9 % (42.8-82.8); PLATELET COUNT 207 10^3/uL (134-434); RBC 2.75 M/mm3 (4.00-5.60); WHITE BLOOD COUNT 11.9 K/mm3 (4.0-10.0)
[2021-10-23] MEDS ORDERED: PIPERACILLIN/TAZOBACTAM 3.375 GM VIAL IVPB ONE ×2 (07:52→16:53)
[2021-10-23] MEDS ORDERED: DEXTROSE 5%-WATER - 50 ML IVPB ONE ×2 (07:52→16:53)
[2021-10-23] MEDS ORDERED: PIPERACILLIN/TAZOB 3.375 GM 3.375 GM in DEXTROSE 5%-WATER - 50 ML IVPB SCH (08:00)
[2021-10-23 08:47] LABS: ALBUMIN 1.9 g/dl (3.4-5.0)
[2021-10-23 08:48] LABS: BLOOD UREA NITROGEN 24.2 mg/dL (7-18); CALCIUM 7.2 mg/dL (8.5-10.1); MAGNESIUM 1.4 mg/dL (1.8-2.4)
[2021-10-23 08:51] LABS: CREATININE 0.8 mg/dL (0.55-1.3)
[2021-10-23 08:52] LABS: BILIRUBIN,TOTAL 0.5 mg/dL (0.2-1); TOT PROT 4.7 g/dl (6.4-8.2)
[2021-10-23 08:55] LABS: PHOSPHOROUS 2.8 mg/dL (2.5-4.9)
[2021-10-23] MEDS ORDERED: D5-1/2NS+30 MEQ KCL - 30 MEQ/1,000 ML INFUS.BAG IV SCH (09:45)
[2021-10-23] MEDS ORDERED: LACTATED RINGERS SOLUTION 1,000 ML/1,000 ML INFUS.BAG IV SCH (11:00)
[2021-10-23] MEDS ORDERED: SCOPOLAMINE HYDROBROMIDE 1 PATCH PATCH.TD72 TD SCH (11:30)
[2021-10-23] MEDS ORDERED: MAGNESIUM 2GM/50ML STERILE WATER IVPB IVPB ONE ×2 (11:32→18:00)
[2021-10-23] MEDS ORDERED: KCL 10 MEQ IVPB 10 MEQ/100 ML INFUS.BAG IVPB SCH (13:00)
[2021-10-23] MEDS ORDERED: POTASSIUM CHLORIDE 40 MEQ in AMINO ACIDS 4.25%/D5W 1,000 ML IV SCH (15:45)
[2021-10-23] MEDS: POTASSIUM CHLORIDE 40 MEQ in AMINO ACIDS 4.25%/D5W 1,000 ML IV SCH (16:55)
[2021-10-23] MEDS: PIPERACILLIN/TAZOB 3.375 GM 3.375 GM in DEXTROSE 5%-WATER - 50 ML IVPB SCH (17:14)
[2021-10-23] MEDS: PANTOPRAZOLE SODIUM 40 MG VIAL IVPUSH SCH (22:20)
[2021-10-24] MEDS: PHENYLEPHRINE NS PREMIX 50,000 MCG/500 ML BAG CVP SCH (00:08)
[2021-10-24] MEDS: METOCLOPRAMIDE HCL INJECTION 10 MG/2 ML VIAL IVPUSH SCH ×3 (00:35→12:51)
[2021-10-24] MEDS ORDERED: PIPERACILLIN/TAZOBACTAM 3.375 GM VIAL IVPB ONE ×2 (01:57→09:05)
[2021-10-24] MEDS ORDERED: DEXTROSE 5%-WATER - 50 ML IVPB ONE ×2 (01:57→09:05)
[2021-10-24] MEDS: PIPERACILLIN/TAZOB 3.375 GM 3.375 GM in DEXTROSE 5%-WATER - 50 ML IVPB SCH ×2 (02:14→09:09)
[2021-10-24] MEDS: POTASSIUM CHLORIDE 40 MEQ in AMINO ACIDS 4.25%/D5W 1,000 ML IV SCH (05:35)
[2021-10-24] MEDS: INSULIN SLIDING SCALE (NOVOLOG) 1 VIAL SQ SCH ×3 (06:12→17:06)
[2021-10-24] MEDS: INSULIN (LEVEMIR) 100 UNITS/ML UNITS SQ SCH (06:13)
[2021-10-24 07:12] LABS: BASO % 0.2 % (0-2.0); HEMATOCRIT 23.6 % (35.4-49); HEMOGLOBIN 8.2 GM/dL (11.7-16.9); LYMPH % 8.4 % (8-40); MCH 31.2 pg (25.7-33.7); MCHC 34.8 g/dl (32.0-35.9); MEAN CELL VOLUME 89.4 fl (80-96); MEAN PLT VOLUME 7.5 fl (7.5-11.1); MONO % 5.2 % (3.8-10.2); NEUT % 85.2 % (42.8-82.8); PLATELET COUNT 210 10^3/uL (134-434); RBC 2.64 M/mm3 (4.00-5.60); RDW 13.9 % (11.9-15.9); WHITE BLOOD COUNT 9.8 K/mm3 (4.0-10.0)
[2021-10-24 07:31] LABS: BLOOD UREA NITROGEN 19.7 mg/dL (7-18); CALCIUM 7.3 mg/dL (8.5-10.1); MAGNESIUM 2.2 mg/dL (1.8-2.4)
[2021-10-24 07:32] LABS: ALBUMIN 1.8 g/dl (3.4-5.0)
[2021-10-24 07:34] LABS: PHOSPHOROUS 2.1 mg/dL (2.5-4.9)
[2021-10-24 07:35] LABS: CREATININE 0.7 mg/dL (0.55-1.3)
[2021-10-24 07:36] LABS: BILIRUBIN,TOTAL 0.6 mg/dL (0.2-1); TOT PROT 4.8 g/dl (6.4-8.2)
[2021-10-24] MEDS: PANTOPRAZOLE SODIUM 40 MG VIAL IVPUSH SCH (09:08)
[2021-10-24] MEDS: ENOXAPARIN NA (PORCINE) 40 MG/0.4 ML DISP.SYRIN SQ SCH (12:51)
[2021-10-24] MEDS ORDERED: SODIUM PHOSPHATE - 15 MM in SODIUM CHLORIDE 250 ML IVPB ONE (14:30)
[2021-10-25] MEDS: PANTOPRAZOLE SODIUM 40 MG VIAL IVPUSH SCH ×3 (01:04→22:35)
[2021-10-25] MEDS: INSULIN (LEVEMIR) 100 UNITS/ML UNITS SQ SCH (06:03)
[2021-10-25] MEDS: INSULIN SLIDING SCALE (NOVOLOG) 1 VIAL SQ SCH ×3 (06:04→16:56)
[2021-10-25 07:51] LABS: BASO % 0.3 % (0-2.0); EOS % 0.7 % (0-4.5); HEMATOCRIT 25.2 % (35.4-49); HEMOGLOBIN 8.8 GM/dL (11.7-16.9); LYMPH % 10.4 % (8-40); MCH 31.3 pg (25.7-33.7); MEAN CELL VOLUME 89.4 fl (80-96); MEAN PLT VOLUME 7.5 fl (7.5-11.1); MONO % 6.7 % (3.8-10.2); NEUT % 81.9 % (42.8-82.8); PLATELET COUNT 282 10^3/uL (134-434); RBC 2.82 M/mm3 (4.00-5.60); RDW 14.3 % (11.9-15.9); WHITE BLOOD COUNT 7.1 K/mm3 (4.0-10.0)
[2021-10-25 08:33] LABS: BLOOD UREA NITROGEN 17.8 mg/dL (7-18); MAGNESIUM 2.2 mg/dL (1.8-2.4)
[2021-10-25 08:36] LABS: CREATININE 0.7 mg/dL (0.55-1.3); PHOSPHOROUS 2.4 mg/dL (2.5-4.9)
[2021-10-25 08:37] LABS: TOT PROT 5.6 g/dl (6.4-8.2)
[2021-10-25 08:38] LABS: BILIRUBIN,TOTAL 0.4 mg/dL (0.2-1)
[2021-10-25] MEDS: ENOXAPARIN NA (PORCINE) 40 MG/0.4 ML DISP.SYRIN SQ SCH (09:17)
[2021-10-25] MEDS: NAPH,MB-DB/K PH,MBDB POWDER PACKET PEG SCH ×2 (14:54→22:35)
[2021-10-26 02:29] LABS: EPI CELLS 4 /uL (0-25.1); HYALINE CASTS 0 /uL (0-3.1); PH,URINE 5.5 (5.0-8.0); URINE APPEARANCE CLEAR; URINE BACTERIA 10 /uL (0-1359); URINE BILIRUBIN NEGATIVE (NEGATIVE); URINE COLOR YELLOW; URINE GLUCOSE (UA) 3+ (NEGATIVE); URINE KETONE NEGATIVE (NEGATIVE); URINE LEUK ESTERASE NEGATIVE (NEGATIVE); URINE NITRITE NEGATIVE (NEGATIVE); URINE PROTEIN 1+ (NEGATIVE); URINE RBC 24 /uL (0-23.9); URINE UROBILINOGEN 0.2 mg/dL (0.2-1.0); URINE WBC 5 /uL (0-25.8)
[2021-10-26] MEDS: INSULIN (LEVEMIR) 100 UNITS/ML UNITS SQ SCH (06:12)
[2021-10-26] MEDS: INSULIN SLIDING SCALE (NOVOLOG) 1 VIAL SQ SCH ×3 (06:12→17:02)
[2021-10-26] MEDS ORDERED: INSULIN SLIDING SCALE (NOVOLOG) 1 VIAL SQ ONE (07:01)
[2021-10-26] MEDS ORDERED: INSULIN (LEVEMIR) 100 UNITS/ML UNITS SQ ONE (07:01)
[2021-10-26] MEDS: PANTOPRAZOLE SODIUM 40 MG VIAL IVPUSH SCH ×3 (08:51→22:26)
[2021-10-26] MEDS: ENOXAPARIN NA (PORCINE) 40 MG/0.4 ML DISP.SYRIN SQ SCH ×2 (08:51→09:02)
[2021-10-26] MEDS: SCOPOLAMINE HYDROBROMIDE 1 PATCH PATCH.TD72 TD SCH (12:02)
[2021-10-26 18:05] LABS: BASO % 0.3 % (0-2.0); EOS % 1.9 % (0-4.5); HEMATOCRIT 26.1 % (35.4-49); HEMOGLOBIN 8.8 GM/dL (11.7-16.9); LYMPH % 12.2 % (8-40); MCH 30.6 pg (25.7-33.7); MCHC 33.9 g/dl (32.0-35.9); MEAN CELL VOLUME 90.4 fl (80-96); MEAN PLT VOLUME 7.1 fl (7.5-11.1); MONO % 8.2 % (3.8-10.2); NEUT % 77.4 % (42.8-82.8); PLATELET COUNT 358 10^3/uL (134-434); RBC 2.89 M/mm3 (4.00-5.60); WHITE BLOOD COUNT 6.3 K/mm3 (4.0-10.0)
[2021-10-26 18:16] LABS: ALBUMIN 1.9 g/dl (3.4-5.0); CALCIUM 8.1 mg/dL (8.5-10.1)
[2021-10-26 18:19] LABS: CREATININE 0.7 mg/dL (0.55-1.3)
[2021-10-26 18:21] LABS: BILIRUBIN,TOTAL 0.2 mg/dL (0.2-1); BLOOD UREA NITROGEN 18.3 mg/dL (7-18); TOT PROT 5.3 g/dl (6.4-8.2)
[2021-10-27] MEDS: INSULIN SLIDING SCALE (NOVOLOG) 1 VIAL SQ SCH ×3 (06:13→17:12)
[2021-10-27] MEDS: INSULIN (LEVEMIR) 100 UNITS/ML UNITS SQ SCH (06:14)
[2021-10-27] MEDS: PANTOPRAZOLE SODIUM 40 MG VIAL IVPUSH SCH (09:02)
[2021-10-27] MEDS: ENOXAPARIN NA (PORCINE) 40 MG/0.4 ML DISP.SYRIN SQ SCH (09:02)
[2021-10-27 17:00] LABS: BASO % 0.4 % (0-2.0); HEMATOCRIT 26.8 % (35.4-49); HEMOGLOBIN 9.2 GM/dL (11.7-16.9); LYMPH % 10.9 % (8-40); MCH 31.1 pg (25.7-33.7); MCHC 34.2 g/dl (32.0-35.9); MEAN CELL VOLUME 90.8 fl (80-96); MEAN PLT VOLUME 6.9 fl (7.5-11.1); MONO % 8.5 % (3.8-10.2); NEUT % 79.2 % (42.8-82.8); PLATELET COUNT 452 10^3/uL (134-434); RBC 2.96 M/mm3 (4.00-5.60); RDW 14.1 % (11.9-15.9); WHITE BLOOD COUNT 9.3 K/mm3 (4.0-10.0)
[2021-10-27 17:06] LABS: INR 1.04 (0.83-1.09)
[2021-10-27 17:24] LABS: BLOOD UREA NITROGEN 19.9 mg/dL (7-18); CALCIUM 8.6 mg/dL (8.5-10.1)
[2021-10-27 17:28] LABS: CREATININE 0.7 mg/dL (0.55-1.3)
[2021-10-27] MEDS: FAMOTIDINE 40 MG/5 ML ORAL SUSPENSION GT SCH (21:39)
[2021-10-27 22:57] LABS: HEMOGLOBIN 9.1 GM/dL (11.7-16.9); MCH 31.7 pg (25.7-33.7); MCHC 34.9 g/dl (32.0-35.9); MEAN CELL VOLUME 90.8 fl (80-96); MEAN PLT VOLUME 6.9 fl (7.5-11.1); PLATELET COUNT 458 10^3/uL (134-434); RBC 2.87 M/mm3 (4.00-5.60); RDW 13.8 % (11.9-15.9); WHITE BLOOD COUNT 10.4 K/mm3 (4.0-10.0)
[2021-10-28] MEDS: INSULIN SLIDING SCALE (NOVOLOG) 1 VIAL SQ SCH ×3 (06:20→17:03)
[2021-10-28] MEDS: INSULIN (LEVEMIR) 100 UNITS/ML UNITS SQ SCH (06:20)
[2021-10-28] MEDS: FAMOTIDINE 40 MG/5 ML ORAL SUSPENSION GT SCH ×2 (09:44→21:50)
[2021-10-28 10:03] LABS: HEMATOCRIT 25.4 % (35.4-49); HEMOGLOBIN 8.7 GM/dL (11.7-16.9); MCH 31.8 pg (25.7-33.7); MCHC 34.4 g/dl (32.0-35.9); MEAN CELL VOLUME 92.3 fl (80-96); MEAN PLT VOLUME 7.5 fl (7.5-11.1); PLATELET COUNT 489 10^3/uL (134-434); RBC 2.75 M/mm3 (4.00-5.60); RDW 13.9 % (11.9-15.9); WHITE BLOOD COUNT 8.2 K/mm3 (4.0-10.0)
[2021-10-29] MEDS: INSULIN SLIDING SCALE (NOVOLOG) 1 VIAL SQ SCH ×3 (06:15→16:36)
[2021-10-29] MEDS: INSULIN (LEVEMIR) 100 UNITS/ML UNITS SQ SCH ×2 (06:15→22:16)
[2021-10-29] MEDS ORDERED: ACETAMINOPHEN 650 MG/20.3 ML ORAL SOLUTION (CUPS) PO PRN (07:56)
[2021-10-29 08:52] LABS: HEMOGLOBIN 8.9 GM/dL (11.7-16.9); MCH 31.6 pg (25.7-33.7); MCHC 34.1 g/dl (32.0-35.9); MEAN CELL VOLUME 92.7 fl (80-96); MEAN PLT VOLUME 7.5 fl (7.5-11.1); PLATELET COUNT 559 10^3/uL (134-434); RBC 2.81 M/mm3 (4.00-5.60); RDW 14.3 % (11.9-15.9); WHITE BLOOD COUNT 8.2 K/mm3 (4.0-10.0)
[2021-10-29] MEDS: FAMOTIDINE 40 MG/5 ML ORAL SUSPENSION GT SCH ×2 (09:13→22:16)
[2021-10-29] MEDS: SCOPOLAMINE HYDROBROMIDE 1 PATCH PATCH.TD72 TD SCH (11:12)
[2021-10-30] MEDS: INSULIN (LEVEMIR) 100 UNITS/ML UNITS SQ SCH ×2 (06:40→22:50)
[2021-10-30] MEDS: INSULIN SLIDING SCALE (NOVOLOG) 1 VIAL SQ SCH ×3 (06:45→17:01)
[2021-10-30] MEDS: FAMOTIDINE 40 MG/5 ML ORAL SUSPENSION GT SCH ×2 (10:00→23:11)
[2021-10-31] MEDS: INSULIN (LEVEMIR) 100 UNITS/ML UNITS SQ SCH ×2 (06:13→23:21)
[2021-10-31] MEDS: INSULIN SLIDING SCALE (NOVOLOG) 1 VIAL SQ SCH ×3 (06:14→16:55)
[2021-10-31] MEDS: FAMOTIDINE 40 MG/5 ML ORAL SUSPENSION GT SCH ×2 (09:49→23:41)
[2021-10-31] MEDS ORDERED: METOPROLOL TARTRATE 5 MG/5 ML VIAL IVPUSH ONE (11:34)
[2021-10-31] MEDS ORDERED: METOPROLOL TARTRATE 5 MG/5 ML VIAL IVPB ONE (11:45)
[2021-10-31] MEDS ORDERED: VANCOMYCIN 1 GM in D5W (PRE-DOCKED) 1,000 MG/250 ML IVPB ONE (18:30)
[2021-10-31] MEDS ORDERED: PIPERACILLIN/TAZOB 3.375 GM 3.375 GM in DEXTROSE 5%-WATER - 50 ML IVPB ONE (18:30)
[2021-10-31] MEDS: METOPROLOL TARTRATE 25 MG TABLET (FP) PO SCH (23:18)
[2021-11-01] MEDS: METOPROLOL TARTRATE 25 MG TABLET (FP) PO SCH ×3 (06:27→22:15)
[2021-11-01] MEDS: INSULIN (LEVEMIR) 100 UNITS/ML UNITS SQ SCH ×2 (06:31→21:53)
[2021-11-01] MEDS: INSULIN SLIDING SCALE (NOVOLOG) 1 VIAL SQ SCH ×3 (06:32→18:03)
[2021-11-01] MEDS: FAMOTIDINE 40 MG/5 ML ORAL SUSPENSION GT SCH ×2 (10:26→22:15)
[2021-11-01 10:42] LABS: HEMATOCRIT 27.4 % (35.4-49); HEMOGLOBIN 9.4 GM/dL (11.7-16.9); MCH 31.2 pg (25.7-33.7); MCHC 34.3 g/dl (32.0-35.9); MEAN PLT VOLUME 7.1 fl (7.5-11.1); PLATELET COUNT 700 10^3/uL (134-434); RBC 3.01 M/mm3 (4.00-5.60); RDW 14.7 % (11.9-15.9); WHITE BLOOD COUNT 11.3 K/mm3 (4.0-10.0)
[2021-11-01 11:13] LABS: CALCIUM 8.8 mg/dL (8.5-10.1)
[2021-11-01 11:15] LABS: ALBUMIN 2.3 g/dl (3.4-5.0); MAGNESIUM 2.3 mg/dL (1.8-2.4)
[2021-11-01 11:20] LABS: BILIRUBIN,TOTAL 0.3 mg/dL (0.2-1); TOT PROT 6.7 g/dl (6.4-8.2)
[2021-11-01] MEDS: SCOPOLAMINE HYDROBROMIDE 1 PATCH PATCH.TD72 TD SCH (11:50)
[2021-11-01] MEDS ORDERED: SODIUM ZIRCONIUM CYCLOSILICATE (LOKELMA) 5 GM PACKET PO ONE (13:19)
[2021-11-01] MEDS ORDERED: SODIUM CHLORIDE 1,000 ML IV SCH (13:30)
[2021-11-02] MEDS: METOPROLOL TARTRATE 25 MG TABLET (FP) PO SCH ×2 (05:30→15:26)
[2021-11-02] MEDS: INSULIN SLIDING SCALE (NOVOLOG) 1 VIAL SQ SCH ×2 (06:04→11:55)
[2021-11-02] MEDS: INSULIN (LEVEMIR) 100 UNITS/ML UNITS SQ SCH (06:04)
[2021-11-02] MEDS: FAMOTIDINE 40 MG/5 ML ORAL SUSPENSION GT SCH (10:00)
[2021-11-02 12:12] VITALS: BP 128/68; PULSE 96; TEMP 98
[2021-11-02 12:20] LABS: ALBUMIN 2.1 g/dl (3.4-5.0); BLOOD UREA NITROGEN 27.9 mg/dL (7-18); CALCIUM 8.6 mg/dL (8.5-10.1)
[2021-11-02 12:23] LABS: CREATININE 0.8 mg/dL (0.55-1.3)
[2021-11-02 12:25] LABS: BILIRUBIN,TOTAL 0.3 mg/dL (0.2-1); TOT PROT 6.1 g/dl (6.4-8.2)
== END 2021-11-02 14:23 | DRG 871 ==
LOC: JER 10:47 → JERBED 23:57 → J4W 09-21 04:56 → JICU 09-22 16:08 → J8W 09-26 12:57 → JICU 10-21 13:56 → J4S 10-24 21:35 → J5S 10-30 15:49
PROVIDERS: ADMIT Internal Medicine; ATTEND Family Medicine
PROC: 0T9B70Z Drainage of Bladder with Drainage Device, Via Natural or Artificial Opening (ICD-10-PCS; 2021-09-22)
PROC: 009U3ZX Drainage of Spinal Canal, Percutaneous Approach, Diagnostic (ICD-10-PCS; principal; 2021-09-23)
PROC: 0F9430Z Drainage of Gallbladder with Drainage Device, Percutaneous Approach (ICD-10-PCS; 2021-10-09)
PROC: 0DH63UZ Insertion of Feeding Device into Stomach, Percutaneous Approach (ICD-10-PCS; 2021-10-18)
PROC: 3E0G76Z Introduction of Nutritional Substance into Upper GI, Via Natural or Artificial Opening (ICD-10-PCS; 2021-10-18)
PROC: 0W3P8ZZ Control Bleeding in Gastrointestinal Tract, Via Natural or Artificial Opening Endoscopic (ICD-10-PCS; 2021-10-21)
PROC: 30233L1 Transfusion of Nonautologous Fresh Plasma into Peripheral Vein, Percutaneous Approach (ICD-10-PCS; 2021-10-21)
PROC: 30233N1 Transfusion of Nonautologous Red Blood Cells into Peripheral Vein, Percutaneous Approach (ICD-10-PCS; 2021-10-21)
PROC: 30233K1 Transfusion of Nonautologous Frozen Plasma into Peripheral Vein, Percutaneous Approach (ICD-10-PCS; 2021-10-21)
PROC: 02H633Z Insertion of Infusion Device into Right Atrium, Percutaneous Approach (ICD-10-PCS; 2021-10-21)
PROC: B548ZZA Ultrasonography of Superior Vena Cava, Guidance (ICD-10-PCS; 2021-10-21)
PROC: 5A1945Z Respiratory Ventilation, 24-96 Consecutive Hours (ICD-10-PCS; 2021-10-21)
PROC: 0BH17EZ Insertion of Endotracheal Airway into Trachea, Via Natural or Artificial Opening (ICD-10-PCS; 2021-10-22)
PROC: 05HF33Z Insertion of Infusion Device into Left Cephalic Vein, Percutaneous Approach (ICD-10-PCS; 2021-10-27)
PROC: B54NZZA Ultrasonography of Left Upper Extremity Veins, Guidance (ICD-10-PCS; 2021-10-27)
DX: A41.89 Other specified sepsis (principal); E11.00 Type 2 diabetes mellitus with hyperosmolarity without nonketotic hyperglycemic-hyperosmolar coma (NKHHC); J69.0 Pneumonitis due to inhalation of food and vomit; K22.11 Ulcer of esophagus with bleeding; J96.00 Acute respiratory failure, unspecified whether with hypoxia or hypercapnia; R57.8 Other shock; G93.41 Metabolic encephalopathy; E87.2 Acidosis; N13.4 Hydroureter; N13.30 Unspecified hydronephrosis; N17.9 Acute kidney failure, unspecified; I69.359 Hemiplegia and hemiparesis following cerebral infarction affecting unspecified side; M62.82 Rhabdomyolysis; E87.1 Hypo-osmolality and hyponatremia; R04.2 Hemoptysis; D62 Acute posthemorrhagic anemia; I13.0 Hypertensive heart and chronic kidney disease with heart failure and stage 1 through stage 4 chronic kidney disease, or unspecified chronic kidney disease; E78.5 Hyperlipidemia, unspecified; G51.0 Bell's palsy; R33.8 Other retention of urine; N40.0 Benign prostatic hyperplasia without lower urinary tract symptoms; N31.9 Neuromuscular dysfunction of bladder, unspecified; E86.0 Dehydration; F03.90 Unspecified dementia, unspecified severity, without behavioral disturbance, psychotic disturbance, mood disturbance, and anxiety; E11.42 Type 2 diabetes mellitus with diabetic polyneuropathy; R26.89 Other abnormalities of gait and mobility; E87.6 Hypokalemia; R48.2 Apraxia; E11.22 Type 2 diabetes mellitus with diabetic chronic kidney disease; I12.9 Hypertensive chronic kidney disease with stage 1 through stage 4 chronic kidney disease, or unspecified chronic kidney disease; N18.9 Chronic kidney disease, unspecified; R79.89 Other specified abnormal findings of blood chemistry; K81.1 Chronic cholecystitis; I50.9 Heart failure, unspecified; R31.9 Hematuria, unspecified; K76.9 Liver disease, unspecified; K29.80 Duodenitis without bleeding
CPT/HCPCS: 36415; 36430; 36600; 47490; 49440; 70450-TC; 70551-TC; 71045-TC-FY; 72125-TC; 74018-TC-FY; 74176-TC; 74181-TC; 74190-TC-FY; 76705-TC; 76775-TC; 78226-TC; 80048; 80053; 80061; 80076; 81003; 82010; 82272; 82550; 82553; 82803; 82945; 82962; 82977; 83036; 83605; 83735; 84100; 84157; 84443; 84484; 85025; 85027; 85610; 85730; 86140; 86618; 86694; 86704; 86708; 86735; 86765; 86780; 86787; 86788; 86789; 86803; 86850; 86900; 86901; 86922; 87040; 87070; 87075; 87086; 87102; 87116; 87205; 87206; 87210; 87252; 87340; 87517; 87529; 87899; 93005; 93010; 93970-TC; 94002; 95860-TC; 99291; A9537; C9803-CS; J1644; P9017; P9058; U0003; U0005

== ENCOUNTER 2021-11-12 17:39 | Emergency (ER) | payer OTHER ==
[2021-11-12] MEDS ORDERED: ACETAMINOPHEN INJECTION 100 ML IVPB ONE (18:13)
[2021-11-12] MEDS ORDERED: SODIUM CHLORIDE 0.9% 500 ML INFUS.BAG IV ONE (18:17)
[2021-11-12 18:22] VITALS: BP 107/74; PULSE 143; RESP 24; TEMP 104.1; BMI 22.8
[2021-11-12 18:49] LABS: VENOUS BASE EXCESS 1.8 mmol/L (-2-2); VENOUS O2 SATURATION 85.8 % (70-80); VENOUS PCO2 29.5 mmHg (38-52); VENOUS PH 7.527 (7.310-7.410)
[2021-11-12 18:54] LABS: BASO % 0.2 % (0-2.0); EOS % 0.1 % (0-4.5); HEMATOCRIT 32.9 % (35.4-49); HEMOGLOBIN 10.5 GM/dL (11.7-16.9); LYMPH % 5.6 % (8-40); MCHC 31.9 g/dl (32.0-35.9); MEAN CELL VOLUME 87.5 fl (80-96); MEAN PLT VOLUME 7.7 fl (7.5-11.1); MONO % 3.9 % (3.8-10.2); NEUT % 90.2 % (42.8-82.8); PLATELET COUNT 597 10^3/uL (134-434); RBC 3.76 M/mm3 (4.00-5.60); RDW 15.3 % (11.9-15.9); WHITE BLOOD COUNT 19.5 K/mm3 (4.0-10.0)
[2021-11-12 19:02] LABS: INR 1.36 (0.83-1.09); PROTHROMBIN TIME (PATIENT) 15.7 SEC (9.7-13.0)
[2021-11-12 19:04] LABS: ACTIVATED PTT 27.8 SECONDS (25.2-36.5)
[2021-11-12 19:19] LABS: CHLORIDE 99 mmol/L (98-107); SODIUM 138 mmol/L (136-145)
[2021-11-12 19:21] LABS: CALCIUM 8.6 mg/dL (8.5-10.1)
[2021-11-12 19:22] LABS: ALBUMIN 1.8 g/dl (3.4-5.0); ANION GAP 12 MMOL/L (8-16); CO2 27 mmol/L (21-32)
[2021-11-12 19:25] LABS: CREATININE 2.2 mg/dL (0.55-1.3); SGOT/AST 33 U/L (15-37); SGPT/ALT 34 U/L (13-61)
[2021-11-12 19:26] LABS: BILIRUBIN,TOTAL 0.4 mg/dL (0.2-1)
[2021-11-12 19:27] LABS: LACTIC ACID 4.6 mmol/L (0.4-2.0); TOT PROT 6.5 g/dl (6.4-8.2)
[2021-11-12 19:28] LABS: ALK PHOS 163 U/L (45-117); BLOOD UREA NITROGEN 59.4 mg/dL (7-18); GLUCOSE,RANDOM 403 mg/dL (74-106)
[2021-11-12] MEDS ORDERED: VANCOMYCIN 1 GM in D5W (PRE-DOCKED) 1,000 MG/250 ML IVPB ONE (19:28)
[2021-11-12] MEDS ORDERED: PIPERACILLIN/TAZOB 3.375 GM 3.375 GM in DEXTROSE 5%-WATER - 50 ML IVPB ONE (19:29)
[2021-11-12] MEDS ORDERED: VANCOMYCIN/WATER FOR INJ (PEG) 1,000 MG/200 ML BAG IVPB ONE (19:34)
[2021-11-12] MEDS ORDERED: PIPERACILLIN/TAZOB 3.375 GM 3.375 GM/50 ML BAG IVPB ONE ×2 (19:34→19:52)
[2021-11-12 21:12] LABS: EPI CELLS 21 /uL (0-25.1); HYALINE CASTS 185 /uL (0-3.1); URINE APPEARANCE TURBID; URINE BILIRUBIN 1+ (NEGATIVE); URINE COLOR RED; URINE GLUCOSE (UA) NEGATIVE (NEGATIVE); URINE KETONE NEGATIVE (NEGATIVE); URINE LEUK ESTERASE 3+ (NEGATIVE); URINE NITRITE POSITIVE (NEGATIVE); URINE PROTEIN 2+ (NEGATIVE); URINE RBC 43511 /uL (0-23.9); URINE UROBILINOGEN 0.2 mg/dL (0.2-1.0); URINE WBC 3215 /uL (0-25.8)
[2021-11-12 21:46] LABS: URINE BACTERIA 1.8 /uL (0-1359)
== END 2021-11-12 23:54 | disposition expired ==
LOC: JER 17:39
DX: A41.9 Sepsis, unspecified organism (principal); R65.20 Severe sepsis without septic shock; E11.65 Type 2 diabetes mellitus with hyperglycemia; D72.829 Elevated white blood cell count, unspecified; R41.82 Altered mental status, unspecified
CPT/HCPCS: 36415; 71045-TC-FY; 80053; 81003; 82803; 83605; 84484; 85025; 85610; 85730; 86850; 86900; 86901; 87040; 93005; 93010; 99285-25; C9803-CS; U0003; U0005